=== PATIENT | male | born 1945 | race Caucasian/White ===

== ENCOUNTER 2019-12-18 15:28 | Inpatient (IN) | payer MEDICARE, SELFPAY ==
[2019-12-18] VITALS (7 sets, daily range): BP systolic 149–206; BP diastolic 68–86; PULSE 49–56; RESP 8–18; TEMP 35.5–37.1; O2SAT 96–99; BMI 32.8
--- NOTE | ~2019-12-18 | US_ITS ---
US right upper quadrant INDICATION: Pancreatitis. Abdomen pain. PROCEDURE: Realtime right upper abdominal ultrasound. COMPARISON: No prior studies for comparison. FINDINGS: Pancreas is poorly visualized due to bowel gas. Liver echotexture is increased, consistent with fatty infiltration. There is normal directional flow in the portal vein. There are multiple gallstones. Gallbladder wall is mildly thickened measuring 3-4 mm. Common bile du ct measures 3 mm. No sonographic Barron's sign. IMPRESSION: 1: Cholelithiasis with mild gallbladder wall thickening. 2: Hepatic steatosis. Reviewed, dictated and finalized at location A.
--- NOTE | ~2019-12-18 | XR_ITS ---
EXAMINATION: XR cholangiogram surg 1st inj DATE: 12/22/2019 14:20 INDICATION: Cholelithiasis. TECHNIQUE: 136 fluoroscopic images of the right upper quadrant were obtained during intraoperative ch olangiography performed by the surgeon. I was not present in the operating room. Fluoroscopy exposure time was 20 seconds. COMPARISON: Ultrasound 12/20/2019 FINDINGS: There is a catheter in the cystic duct. The common duct is normal in caliber. No choledocho lithiasis. Contrast passes to the duodenum. IMPRESSION: 1. Normal intraoperative cholangiogram. Reviewed, dictated and finalized at location A.
--- NOTE | ~2019-12-18 | CT_ITS ---
EXAMINATION: CTA chest abdomen pelvis DATE: 12/18/2019 16:13 INDICATION: Abdominal aortic aneurysm presenting with abdominal pain. TECHNIQUE: Computed tomographic angiography (CTA) of the chest, abdomen, and pelvis was performed wit hout and with 100 mL Omnipaque-350 intravenous contrast. Volume-rendered 3D-reconstructions of the ao rta and large arteries were constructed by the technologist on a separate workstation. Automated expo sure control and iterative reconstruction technique were employed. The dose-length product was 1524 m Gy-cm. COMPARISON: CT chest and abdomen dated 10/14/2013 FINDINGS: Chest: Dependent predominant atelectasis in the bilateral lower lobes. There are multiple scattered bilatera l calcified pulmonary nodules consistent with old granulomatous disease. A few additional scattered i ndeterminate noncalcified pulmonary nodules the largest measuring up to 3 mm. No pneumonia, pulmonary edema or pleural effusion. Heart size is normal. Atherosclerotic coronary artery Calcination. No per icardial effusion. 4.9 x 5.0 cm fusiform ascending thoracic aortic aneurysm which tapers to 3.3 cm at the distal arch. Normal caliber descending thoracic aorta. No aortic dissection. There are bridging osteophytes throughout the thoracic spine, consistent with diffuse idiopathic skeletal hyperostosis ( DISH). There is also fusion across the T8-T9 disc space. Abdomen/pelvis: Liver, spleen, bilateral adrenal glands are normal. There are several calcified gallstones in the nor mal gallbladder. No intra or extra hepatic biliary ductal dilation. There is peripancreatic stranding and upper abdominal retroperitoneal fluid consistent with acute interstitial pancreatitis. There are several small dystrophic calcific a cyst at the tail of the pancreas consistent with sequela of carpenter mate antonio pancreatitis. No organized fluid collections to suggest abscess or walled off necrosis. Retained lobulation of the bilateral kidneys. Bilateral nonobstructing nephrolithiasis with 8 mm stone a t a lower pole calyx of the right kidney and several additional 2 mm smaller stones. Mild prostatomeg nila. Bladder is normal. There are few diverticula along the sigmoid colon without adjacent inflammato ry change to suggest diverticulitis. Small bowel and appendix are normal. Small bilateral fat-contain ing inguinal hernias. No free intraperitoneal gas or fluid. No pathologically enlarged abdominal or p elvic lymphadenopathy. There is nonhemodynamically significant calcified atherosclerosis of the duarte l caliber abdominal aorta and many of the other arteries. L2-L4 laminectomies and partial L4 laminect gabriel. Severe lumbar spondylosis with fusion across the L2-L3 and L3-L4 disc spaces. Developing ankylo sis across the bilateral sacroiliac joints. Moderate bilateral hip osteoarthritis. IMPRESSION: 1. Cholelithiasis and radiographically uncomplicated acute interstitial pancreatitis. No evident obst ructing gallstone or intra-/extra hepatic biliary ductal dilation. 2. Unchanged 4.9 x 5.0 cm diffuse from ascending thoracic aortic aneurysm. No aortic dissection or an eurysm of the descending thoracic or abdominal aorta. 3. Bilateral nonobstructing nephrolithiasis. Reviewed, dictated and finalized at location A. IMPRESSION: 1. Cholelithiasis and radiographically uncomplicated acute interstitial pancrea titis. No evident obstructing gallstone or intra-/extra hepatic biliary ductal dilation. 2. Unchanged 4.9 x 5.0 cm diffuse from ascending thoracic aortic aneurysm. No a ortic dissection or aneurysm of the descending thoracic or abdominal aorta. 3. Bilateral nonobstructing nephrolithiasis.
--- NOTE | 2019-12-18 15:24 | ED.ABDPAIN ---
HPI - Abdominal Pain General Chief Complaint: Abdominal Pain Stated Complaint: n/v/abdominal pain Source: patient and EMS Mode of arrival: EMS Limitations: no limitations History of Present Illness HPI narrative: Patient is a 74-year-old gentleman with a history of AAA, hypertension, who presents for evaluation of abdominal pain. Patient with acute onset, nausea, epigastric abdominal pain with radiation to the back. Patient had several episodes of nonbloody, nonbilious emesis. He denies fever or chills, reports feeling slightly diaphoretic with vomiting. No numbness in his lower extremities, no ripping or tearing sensation to the flanks. Patient states he had a bowl of cereal this morning, no recent food indiscretions. No diarrhea. No recent sick contacts. Related Data Home Medications Medication Instructions Recorded Confirmed ascorbic acid (vitamin C) [Vitamin 500 mg PO DAILY 12/18/19 12/18/19 C] aspirin [Aspirin Low Dose] 12/18/19 cholecalciferol (vitamin D3) 25 mcg PO DAILY 12/18/19 12/18/19 [Vitamin D3] cyanocobalamin (vitamin B-12) 1,000 mcg PO DAILY 12/18/19 12/18/19 [Vitamin B-12] omega 2-rtd-rqq-fish oil [Fish Oil] 1 cap PO DAILY 12/18/19 12/18/19 vitamin E 400 unit PO DAILY 12/18/19 12/18/19 Allergies Allergy/AdvReac Type Severity Reaction Status Date / Time No Known Allergies Allergy Verified 10/02/18 17:24 Review of Systems Review of Systems: Narrative: CONSTITUTIONAL: Denies fever, chills, reports feeling slightly diaphoretic EYES: Denies visual changes, redness, or discharge. ENT: Denies rhinorrhea, congestion, sore throat, or otalgia. CARDIOVASCULAR: Denies chest pain, palpitations, or edema. RESPIRATORY: Denies cough or dyspnea. GASTROINTESTINAL: Reports abdominal pain, nausea and vomiting GENITOURINARY: Denies dysuria or hematuria. SKIN: Denies rash or itching. MUSCULOSKELETAL: Reports back pain NEUROLOGIC: Denies headache, numbness, or weakness. [facility] Past Medical History Medical History (Updated 12/18/19 @ 17:26 by Isabella Gar MD) Acid reflux Arthritis Hyperlipidemia Hypertension Nephrolithiasis Surgical History Surgical History (Updated 12/18/19 @ 15:38 by Isabella Gar MD) H/O angioplasty History of cataract surgery Hx of cardiac catheterization Hx of tonsillectomy Family History Family History (Updated 03/16/14 @ 07:13 by DOCTOR UNKNOWN) Mother Family history of malignant neoplasm Father Family history of emphysema Social History Social History Smoking status: Never smoker Alcohol intake: current Exam Narrative: Exam Narrative: GENERAL: Awake, alert, conversant HEAD: Normocephalic, atraumatic. EYES: PERRLA and EOMI. ENT: Nares clear, no rhinorrhea or epistaxis. Mucous membranes moist. NECK: Supple. CHEST: No respiratory distress, breathing even and non labored HEART: Bradycardic rate, sinus rhythm ABDOMEN:Non distended, tender in the epigastrium, no pulsatile mass in the abdomen, nonrigid, no distention, no guarding EXTREMITIES: Normal range of motion. No edema. SKIN: Warm, dry, no rash. NEURO:No focal deficits. Alert and oriented x3 Course Vital Signs Vital signs: Vital Signs Temperature 35.5 C L 12/18/19 15:29 Pulse Rate 49 L 12/18/19 15:29 Respiratory Rate 14 12/18/19 15:29 Blood Pressure 206/86 H 12/18/19 15:29 Pulse Oximetry 99 12/18/19 15:29 Temperature 36.4 C L 12/18/19 17:28 Pulse Rate 54 L 12/18/19 17:28 Respiratory Rate 15 12/18/19 17:28 Blood Pressure 162/79 H 12/18/19 17:28 Pulse Oximetry 97 12/18/19 17:28 MDM - Abdominal Pain MDM Narrative Medical decision making narrative: Patient presented to the emergency department for evaluation of abdominal pain. At the time of initial assessment, ABCs are intact, vital signs are notable for bradycardic patient who is hypertensive, no pulsatile mass in the abdomen that I can palpate. Patient does have a history of a AAA. IV access
--- NOTE | 2019-12-18 15:31 | ECG_ITS ---
Measurements Intervals [place] Rate: 49 P: 68 HI: 285 QRS: -16 QRSD: 113 T: 86 QT: 483 QTc: 440 Interpretive Statements SINUS BRADYCARDIA WITH FIRST DEGREE AV BLOCK INTRAVENTRICULAR CONDUCTION DELAY NONSPECIFIC ST & T-WAVE ABNORMALITY- LATERAL LEADS BASELINE WANDER- V1 BORDERLINE ECG Electronically Signed On 12-20-2019 14:15:09 CDT by Charles Nichols D.O.
[2019-12-18 15:42] LABS: Glucose Point of Care 158 (65-105)
[2019-12-18 15:51] LABS: Basophils Absolute Auto 0.1 K/mm3 (0.0-0.1); Basophils Percent Auto 0.4 % (0.2-1.2); Eosinophils Absolute Auto 0.3 K/mm3 (0-0.3); Eosinophils Percent Auto 1.4 % (0-4.4); Hematocrit 45.8 % (42.0-52.0); Hemoglobin 15.7 g/dL (14.0-18.0); Immature Granulocyte Absolute 0.17 K/mm3 (0.00-0.031); Immature Granulocyte Percent A 0.8 % (0-0.5); Lymphocytes Percent Auto 6.5 % (18.3-44.2); Mean Corpuscular HGB Conc 34.3 g/dl (32-36); Mean Corpuscular Hemoglobin 31.3 pg (26-34); Mean Corpuscular Volume 91.2 fl (80-100); Mean Platelet Volume 11.1 fl (7.4-10.4); Monocytes Absolute Auto 1.2 K/mm3 (0.1-0.6); Monocytes Percent Auto 5.6 % (2.6-8.5); Neutrophils Absolute Auto 18.5 K/mm3 (1.3-6.7); Neutrophils Percent Auto 85.3 % (45.5-73.1); Platelet Count Result 262 k/mm3 (150-375); Red Blood Count 5.02 M/mm3 (4.6-6.20); Red Cell Distribution Width 14.1 % (11.5-14.5); White Blood Count 21.7 K/mm3 (4.5-10.0)
[2019-12-18 16:01] LABS: INR 1.1; Prothrombin Time 14.3 Seconds (11.1-14.7)
[2019-12-18 16:02] LABS: Partial Thromboplastin Time 29.6 SECONDS (22.3-36.8)
[2019-12-18 16:03] LABS: Estimated CRCL calculation 51 ml/min; Estimated Glomerular Filt Rate 46
[2019-12-18 16:03] LABS: Lactic Acid Reflex 2.2 mmol/L (0.7-2.1)
[2019-12-18 16:05] LABS: Alanine Aminotransferase 13 U/L (4-50); Albumin Level 4.7 g/dL (3.5-5.1); Alkaline Phosphatase 108 U/L (38-126); Aspartate Amino Transferase 25 U/L (17-59); Bilirubin,Total 0.9 mg/dL (0.2-1.3); Blood Urea Nitrogen 21 mg/dL (9-20); Calcium 9.6 mg/dL (8.4-10.2); Carbon Dioxide 26 mmol/L (22-30); Chloride 107 mmol/L (98-107); Estimated CRCL calculation 51 ml/min; Estimated Glomerular Filt Rate 46; Glucose 156 mg/dL (75-110); Potassium 3.6 mmol/L (3.4-5.0); Sodium 144 mmol/L (137-145)
[2019-12-18 16:15] LABS: Troponin I < 0.012 ng/mL (0.000-0.034)
[2019-12-18] MEDS: MORPHINE SULFATE 4 MG/ML INJ IV PUSH (16:15)
[2019-12-18] MEDS: SODIUM CHLORIDE 0.9% IV 1,000 ML 999 ML IV CONT ×2 (16:15→17:11)
[2019-12-18 16:51] LABS: Lipase > 40000 U/L (23-300)
[2019-12-18] MEDS: HYDROMORPHONE HCL 1 MG/ML INJ 0.5 MG IV PUSH ×3 (17:11→22:32)
--- NOTE | 2019-12-18 17:18 | PC.NURSE ---
RN noted aystole on surveillance monitor. 8 second pause noted with return pulse rate of 27. Pt awake and grimacing in pain. States his stomach is cramping. Advised patient not to bear down during abdominal pain episodes. Patient relaxed and HR returned to baseline of 52. MD notified.
[2019-12-18 18:01] LABS: Add Urine Microscopic? YES; Appearance Urine Clear (Clear); Bilirubin Urine Negative (Negative); Blood Urine Negative (Negative); Color Urine Yellow (Yellow); Glucose Urine UA Negative (Negative); Ketones Urine Negative (Negative); Leukocyte Esterase Ur Negative LEU/UL (Negative); Mucus Urine Rare /lpf; Nitrate Urine Negative (Negative); Protein Urine 1+ mg/dL (Negative); RBC Urine 0-2 /hpf (0-2); Specific Grav Ur 1.041 (1.001-1.035); Squamous Epithelial Cell Urine Few /hpf (Few); Urobilinogen Urine Negative mg/dL (<2.0); WBC Urine 0-3 /hpf
[2019-12-18 18:07] LABS: Lactate Dehydrogenase 381 U/L (313-618)
[2019-12-18] MEDS: MAGNESIUM SULF 2 GM/WATER 50ML 2 GM/50 ML BAG IVPB (18:27)
[2019-12-18 18:38] LABS: Magnesium 1.9 mg/dL (1.6-2.3); Triglycerides 291 mg/dL (<150)
[2019-12-18 18:49] LABS: Reflex Lactic Acid Yes or No Add Lactic
[2019-12-18 18:50] LABS: Troponin I < 0.012 ng/mL (0.000-0.034)
--- NOTE | 2019-12-18 19:00 | PM.IMHP ---
H&P: HPI History of Present Illness Chief complaint: Abdominal pain. Narrative: David Nicholson is a very pleasant 78-year-old male with untreated obstructive sleep apnea, hypertension, dyslipidemia including hypertriglyceridemia, GERD, thoracic ascending aortic aneurysm, paroxysmal atrial fibrillation, and coronary artery disease with history of stent who presented to the emergency department earlier today via EMS from home for evaluation of abdominal pain. He was in his usual state of health this morning, and in fact spent a lot of time cleaning fish that he had caught the previous day. Not long prior to arrival, he developed sudden onset of epigastric pain, which he describes as severe and squeezing in nature. The pain did radiate into the back and was associated with diaphoresis, nausea, and vomiting. He was immediately sent for a CTA of the chest, abdomen, and pelvis which revealed and unchanged 4.9 x 5.0 centimeter ascending thoracic aortic aneurysm without evidence of dissection, as well as cholelithiasis and radiographically uncomplicated acute interstitial pancreatitis. He has no previous history of pancreatitis and he uses alcohol rarely, but did have a can of beer yesterday evening. He has a history of hypertriglyceridemia, for which he does take medication. He has never had problems with his gallbladder to his knowledge. Several times while in emergency department, the patient had sinus pause/asystole upwards of 8 seconds and he has since been admitted to the ICU with temporary pacer in place if needed. He is aware when he has these pauses and he feels quite bad when they occur, however he has not lost consciousness. The patient notes that his resting heart rate is typically in the 50s, and there was previous discussion of possible need for a pacemaker in the future. Review of Systems Review of Systems: Narrative: Twelve systems were reviewed with pertinent positives and negatives as per HPI. No fever, chills, or sweats. He denies recent cold and flu symptoms. No travel or sick contacts. He has been diagnosed with sleep apnea and did try to use a CPAP, however was intolerant to such. He has been told that he snores and he is sleepy a lot during the day. He will have occasional lower extremity edema, but nothing significant. He denies paroxysmal nocturnal dyspnea and orthopnea. No pleuritic pain. He has not had chest pain or palpitations, and does not believe he has been in atrial fibrillation for quite some time. He denies cough and shortness of breath. He had a bowel movement earlier today which was unremarkable. He does suffer from hemorrhoids and will occasionally notice bright red blood on the toilet tissue. Except as documented, all other systems were reviewed and are negative. [facility] Past Medical History Medical History (Updated 12/18/19 @ 20:05 by Lyubov Cosby PA-C) Arthritis Borderline diabetes Coronary artery disease With history of stents. Dyslipidemia Hypertension Nephrolithiasis Obstructive sleep apnea Intolerant to CPAP. Paroxysmal atrial fibrillation Thoracic aortic aneurysm Stable on imaging dated 12/18/2019. Patient is not interested in surgery. Surgical History Surgical History (Updated 12/18/19 @ 19:53 by Lyubov Cosby PA-C) History of cataract extraction History of heart artery stent (~07/2006) History of lumbar fusion History of tonsillectomy History of total bilateral knee replacement Family History Family History (Updated 12/18/19 @ 19:54 by Lyubov Cosby PA-C) Mother Breast cancer Father Family history of emphysema Daughter Breast cancer Son Valvular heart disease Social History Social History (Updated 12/18/19 @ 19:55 by Lyubov Cosby PA-C) Social History: The patient is and lives in his own home in [place], [place]. 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 He is a lifelong nonsmoker. He drinks perhaps 1 alcoholic beverage a week, at the m
--- NOTE | 2019-12-18 19:19 | ADMGEN ---
This patient, David Nicholson, was admitted to Intensive Care Unit-9. Patient/family oriented to hospital policies and general routines including ID bracelet, bed and alarms, visiting hours, pain management, procedures, bathroom and other care routines, personal items, smoking policy, room service/diet, and visiting hours. Valuables list has been completed. Information on how to activate the Rapid Response Team has been discussed. Patient/Family are encouraged to report perceived risks to care and to ask questions if they do not understand what they are told or what they should do.
[2019-12-18] MEDS: SODIUM CHLORIDE 0.9% IV 1,000 ML 150 ML IV CONT (20:28)
--- NOTE | 2019-12-18 20:47 | PC.NURSE ---
PATIENT ARRIVED AT SHIFT CHANGE AND WAS MADE COMFORTABLE IN BED. PATIENT PLACED ON HEART MONITOR AND BECAME SYMPTOMATIC, HEART RATE DROPPED INTO THE LOW 20S-30S. PATIENT STATED THAT HE BECAME VERY DIZZY WHEN THIS OCCURRED. HOSPITALIST CALLED TO BEDSIDE AND CARDIOLOGY MADE AWARE OF CURRENT PATIENT STATUS. PATIENT PLACED ON PACER PADS, WITH SUPPORT OF HEART RATE OF 50 THROUGHOUT NIGHT, WITH POSSIBLE PACEMAKER PLACEMENT IN AM. PATIENT MADE AWARE AND EDUCATED ON WHAT COULD POTENTIALLY TAKE PLACE IN AM. WILL CONTINUE TO MONITOR PATIENT CLOSELY FOR CHANGES IN STATUS AND WILL FOLLOW CURRENT PLAN OF CARE AND VITAL SIGNS.
[2019-12-18 21:58] LABS: Lactic Acid 1.4 mmol/L (0.7-2.1)
[2019-12-18 22:10] LABS: Troponin I < 0.012 ng/mL (0.000-0.034)
[2019-12-18 22:16] LABS: Hemoglobin A1C 5.7 % (<5.7)
[2019-12-18 23:46] LABS: Lactic Acid 1.6 mmol/L (0.7-2.1)
[2019-12-19] VITALS (13 sets, daily range): BP systolic 133–170; BP diastolic 65–89; PULSE 54–69; RESP 12–22; TEMP 36.6–37.8; O2SAT 93–98
[2019-12-19] MEDS: SODIUM CHLORIDE 0.9% IV 1,000 ML 150 ML IV CONT ×4 (02:20→20:02)
[2019-12-19] MEDS: HYDROMORPHONE HCL 1 MG/ML INJ 0.5 MG IV PUSH ×5 (02:20→21:18)
[2019-12-19 04:31] LABS: Basophils Percent Auto 0.2 % (0.2-1.2); Hematocrit 41.4 % (42.0-52.0); Immature Granulocyte Absolute 0.08 K/mm3 (0.00-0.031); Immature Granulocyte Percent A 0.6 % (0-0.5); Lymphocytes Absolute Auto 0.65 K/mm3 (0.9-3.2); Lymphocytes Percent Auto 5.1 % (18.3-44.2); Mean Corpuscular HGB Conc 33.8 g/dl (32-36); Mean Corpuscular Volume 91.6 fl (80-100); Mean Platelet Volume 10.5 fl (7.4-10.4); Monocytes Absolute Auto 0.7 K/mm3 (0.1-0.6); Monocytes Percent Auto 5.1 % (2.6-8.5); Neutrophils Absolute Auto 11.4 K/mm3 (1.3-6.7); Platelet Count Result 205 k/mm3 (150-375); Red Blood Count 4.52 M/mm3 (4.6-6.20); Red Cell Distribution Width 14.1 % (11.5-14.5); White Blood Count 12.8 K/mm3 (4.5-10.0)
[2019-12-19 04:59] LABS: Alanine Aminotransferase 11 U/L (4-50); Albumin Level 3.8 g/dL (3.5-5.1); Alkaline Phosphatase 71 U/L (38-126); Aspartate Amino Transferase 24 U/L (17-59); Bilirubin,Total 0.8 mg/dL (0.2-1.3); Blood Urea Nitrogen 24 mg/dL (9-20); Calcium 8.4 mg/dL (8.4-10.2); Carbon Dioxide 27 mmol/L (22-30); Chloride 110 mmol/L (98-107); Estimated CRCL calculation 63 ml/min; Estimated Glomerular Filt Rate 59; Glucose 135 mg/dL (75-110); Magnesium 2.2 mg/dL (1.6-2.3); Potassium 4.4 mmol/L (3.4-5.0); Sodium 143 mmol/L (137-145)
[2019-12-19 05:40] LABS: Lipase 4883 U/L (23-300)
[2019-12-19] MEDS: ONDANSETRON INJ 4 MG/2 ML VIAL IV PUSH ×3 (07:52→21:18)
[2019-12-19] MEDS: FAMOTIDINE 20 MG/2 ML VIAL IV PUSH ×2 (09:21→20:03)
--- NOTE | 2019-12-19 09:50 | WPDGICN ---
Assessment and Plan Assessment and plan (1) Acute pancreatitis: Qualifiers: Acute pancreatitis complication: no infection or necrosis Pancreatitis type: unspecified pancreatitis type Qualified Code(s): K85.90 - Acute pancreatitis without necrosis or infection, unspecified Code(s): K85.90 - Acute pancreatitis without necrosis or infection, unspecified Status: Acute Assessment and Plan: Patient's symptoms laboratory all consistent with acute pancreatitis. CT scan of the abdomen confirms gallstones. Making this a likely etiology for his pancreatitis. Currently his there is no ductal dilatation on x-ray exam and liver function tests remain normal. Plan is to treat symptomatic Manzo. With IV fluids and supportive care. Ultimately cholecystectomy baby required. Patient does admit to occasional beer intake but not enough at this point to attribute pancreatitis. Patient continuing to have ongoing pain at this time. Elevated lipids make this also a consideration for potential etiology for his pancreatitis. We will follow with you. Continue supportive care for now. (2) Dyslipidemia: Code(s): E78.5 - Hyperlipidemia, unspecified Status: Acute (3) Hypertension: Code(s): I10 - Essential (primary) hypertension Status: Acute (4) Thoracic aortic aneurysm: Code(s): I71.2 - Thoracic aortic aneurysm, without rupture Status: Acute (5) Bradycardia: Code(s): R00.1 - Bradycardia, unspecified Status: Acute Assessment and Plan: Patient has had significant sinus pause. Plan is to continue close observation. His possible pacemaker may be required. Patient's bradycardia episodes appear to occur in conjunction with pain raising the question of vagal input. (6) History of colon polyps: Code(s): Z86.010 - Personal history of colonic polyps Status: Acute Assessment and Plan: Patient has a distant history of colon polyps as well as a family history of colon cancer. Last colonoscopy was 8 years ago. Consideration for elective colonoscopy when stable at a later date after discharges encourage. (7) Family history of malignant neoplasm of colon in relative diagnosed when older than 50 years of age: Code(s): Z80.0 - Family history of malignant neoplasm of digestive organs Status: Acute (8) Cholelithiasis: Code(s): K80.20 - Calculus of gallbladder without cholecystitis without obstruction Status: Acute GI Consult Note Consult date/time: 12/19/19 09:50 HPI: Daivd Nicholson is a 74 year old male seen in evaluation at the request of the customer care agent service. Patient in usual state of health until yesterday. He ate a normal breakfast began to clean fish. Patient had sudden onset of upper abdominal crampy type pain. Associated with emesis. Patient states pain was rather severe in ongoing. For this reason he presented to the emergency room. Elevated lipase 240 1000 is identified. Patient has had no recent change in medications. He admits to infrequent intake Beer. Last Beer was several days prior to this. Patient reports never having had pancreatitis prior to this. Patient continues to have episodes of crampy mid epigastric discomfort. On the floor patient was noted have episodes of a sinus pause and symptomatic bradycardia. For this reason transferred to the intensive care unit for closer monitoring. Family history is significant his brother had colon cancer his mother and brother of also had other cancers. Patient self is had prior history of colon polyps last colonoscopy was 2011. Review of Systems Review of Systems: All systems reviewed & are unremarkable except as noted in HPI and below PMFSH Past Medical History Medical History Arthritis Borderline diabetes Coronary artery disease With history of stents. Dyslipidemia Hypertension Nephrolithiasis Obstructive sleep
--- NOTE | 2019-12-19 11:21 | PM.CNCAR ---
Assessment and Plan Additional Plan 74-year-old white male with: Acute pancreatitis most likely represents gallstone pancreatitis and he seems to be recovering with supportive care. 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 It is less likely that this represents vasovagal phenomenon since we would expect primarily to see sinus arrest in that instance and this appears to show evidence of ongoing sinus activity but with AV block. He is on a beta-molly which potentially playing a role with this but that also is less likely since the sinus node does not seem to be dysfunctional. Strictly speaking his beta-molly needs to be discontinued and we will watch his cardiac rhythm. If he continues to have concerning pauses then implanting a pacemaker would be obviously recommended. The patient understands all this and is willing to proceed with pacemaker implantation if we find it necessary. Rojelio Padilla MD [facility] History of Present Illness History of Present Illness Consult date/time: Date of service: 12/19/19 11:21 Reason For Visit: Abdominal pain. Narrative: This is a 74-year-old patient I am seeing at the request of the hospitalist service because of arrhythmias. I do not remember seeing this patient in the past but he indicates I have seen him many years ago at the time of his coronary intervention. The patient came into the hospital here yesterday with significant abdominal pain and has been found to have evidence of pancreatitis. He has pancreatitis that is presumed to be related to gallstones although he also does have hypertriglyceridemia. Dr. Fang has seen him for GI consultation and has recommended supportive care. The patient's abdominal pain is improving although he states his abdomen still feels quite sore. The hospitalist's believe that at some point the patient will require a cholecystectomy because he does have a number of remaining gallstones but surgery for this does not appear to be an urgent matter. He is not reporting any cardiac symptoms at this time he apparently has a history of coronary artery disease and a percutaneous intervention done 10 years ago or more at [facility]. At that time the patient states that I was involved in his care at [facility] back when I used to work at that hospital. He has not had any coronary problems since that intervention. He did not follow up with Cardiology shortly after the intervention until a few years ago when apparently was found to have paroxysmal atrial fibrillation which apparently was asymptomatic. He was referred to see Dr. Vallejo of our practice at this time and he was not felt to require any specific antiarrhythmic treatment. A outpatient Holter monitor did demonstrate evidence of some sick sinus syndrome with some pauses of up to 2.6 seconds. He was placed on systemic anticoagulation therapy with apixaban. The last time he was seen by Dr. Vallejo in the office was about 2 years ago and he failed follow-up after that indicating he has been frustrated that it is difficult to get an appointment for follow-up in our office. He denies any history of gopi syncope near-syncope or lightheadedness. He does state that for most of his life he has a history of lightheadedness and presyncope when he is in pain. Obviously he was in quite a bit of pain yesterday when he came in with pancreatitis. We are consulted to see him because there were some asystolic pauses apparently 1 of them was in the vicinity of 8 seconds RR interval. There are some rhythm strips on the chart which indicate his baseline rhythm to be sinus with first-degree AV block and these pauses appear to be examples of comp
--- NOTE | 2019-12-19 11:55 | WPDCNINT ---
Assessment and Plan Assessment and plan (1) Acute pancreatitis: Qualifiers: Acute pancreatitis complication: no infection or necrosis Pancreatitis type: unspecified pancreatitis type Qualified Code(s): K85.90 - Acute pancreatitis without necrosis or infection, unspecified Code(s): K85.90 - Acute pancreatitis without necrosis or infection, unspecified Status: Acute Assessment and Plan: Patient presented with abdominal pain, found to have lipase level > 40,000. Patient diagnosed with acute pancreatitis likely related to gallstones, hypertriglyceridemia -patient is on IV fluids -repeated lipase level decreased significantly -appreciate GI evaluation recommendation -supportive care, antiemetics, IV fluids (2) AV block: Code(s): I44.30 - Unspecified atrioventricular block Status: Acute Assessment and Plan: Patient noted to have AV block following admission. -cardiology evaluated the patient, will hold beta-blockers for now and continue to monitor heart rhythm. If patient continues to have consulting pauses, will have pacemaker implanted per cardiology recommendations -continue to monitor on telemetry (3) Cholelithiasis: Code(s): K80.20 - Calculus of gallbladder without cholecystitis without obstruction Status: Acute Assessment and Plan: Patient with gallstones on CT scan of the abdomen, most likely etiology of pancreatitis along with hypertriglyceridemia. Continue IV fluids supportive care. -patient will require cholecystectomy at some point (4) Thoracic aortic aneurysm: Code(s): I71.2 - Thoracic aortic aneurysm, without rupture Status: Acute Assessment and Plan: Unchanged size, will continue to monitor (5) Paroxysmal atrial fibrillation: Code(s): I48.0 - Paroxysmal atrial fibrillation Status: Acute Assessment and Plan: Patient currently sinus bradycardia -will hold beta-molly (6) Dyslipidemia: Code(s): E78.5 - Hyperlipidemia, unspecified Status: Acute Assessment and Plan: Will restart atorvastatin and gemfibrozil once patient starts taking p.o. (7) Hypertension: Code(s): I10 - Essential (primary) hypertension Status: Acute Assessment and Plan: P.r.n. hydralazine Additional Plan Stress ulcer prophylaxis: Famotidine DVT prophylaxis: SCDs Discussed with patient and updated with his condition and plan of care. Code status: Full code Critical care time spent: 39 minutes Due to a high probability of clinically significant, life threatening deterioration, the patient required my highest level of preparedness to intervene emergently and I personally spent this critical care time directly and personally managing the patient. This critical care time included obtaining a history; examining the patient; pulse oximetry; ordering and review of studies; arranging urgent treatment with development of a management plan; evaluation of patient's response to treatment; frequent reassessment; and discussions with other providers. It was exclusive of separately billable procedures and treating other patients and teaching time. 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 He stated that he was his usual state of health on the morning of admission and was cleaning fish that he had card the previous day. He noticed and developed sudden onset of epigastric pain which she descr
[2019-12-19] MEDS: PROCHLORPERAZINE EDISYLATE 10 MG/2 ML VIAL IV PUSH (12:06)
[2019-12-19] MEDS: hydrALAZINE HCL 20 MG/ML VIAL 10 MG IV PUSH ×2 (12:13→17:13)
[2019-12-19 13:04] LABS: Glucose Point of Care 115 (65-105)
--- NOTE | 2019-12-19 15:39 | PM.IMPN ---
Progress Note: A&P Assessment and Plan (1) Acute pancreatitis: Qualifiers: Acute pancreatitis complication: no infection or necrosis Pancreatitis type: unspecified pancreatitis type Qualified Code(s): K85.90 - Acute pancreatitis without necrosis or infection, unspecified Code(s): K85.90 - Acute pancreatitis without necrosis or infection, unspecified Status: Acute Assessment and Plan: Lipase greater than 40,[address] scan and exam consistent with pancreatitis. Triglyceride 291. Patient does not drink alcohol excessively. Gallstones noted on imaging studies which is the most likely etiology. Repeat lipase down to 4900. Continue aggressive IV fluid rehydration, bowel rest, and analgesics/antiemetics as needed. Appreciate GI input. (2) Sinus pause: Code(s): I45.5 - Other specified heart block Status: Acute Assessment and Plan: Patient having sinus pause up to 11 seconds. Transcutaneous pacer pads in place. Cardiology following. Beta-molly has been stopped. Continue telemetry. (3) Dehydration: Code(s): E86.0 - Dehydration Status: Acute Assessment and Plan: Patient clinically dehydrated with elevated renal function. Improved with IV fluids. Continue to follow. (4) Hypertension: Code(s): I10 - Essential (primary) hypertension Status: Acute Assessment and Plan: Blood pressure reviewed on 12/19/19. BP still elevated. Currently NPO of and thus antihypertensives are on hold. Patient has hydralazine available as needed. Continue to monitor. (5) Dyslipidemia: Code(s): E78.5 - Hyperlipidemia, unspecified Status: Acute Assessment and Plan: Stable. Statin and gemfibrozil on hold as he is NPO. (6) Borderline diabetes: Code(s): R73.03 - Prediabetes Status: Acute Assessment and Plan: A1c 5.7. Glucose reviewed on 12/19/2019. Glucose well controlled. Continue sliding scale protocol. (7) Paroxysmal atrial fibrillation: Code(s): I48.0 - Paroxysmal atrial fibrillation Status: Acute Assessment and Plan: No evidence of recurrent atrial fibrillation. Continue telemetry. Beta-molly on hold. He is not on anticoagulation by chart review. Appreciate Cardiology input. (8) Leukocytosis: Code(s): D72.829 - Elevated white blood cell count, unspecified Status: Acute Assessment and Plan: WBC 22K on admission. [place] to be related to inflammation from acute pancreatitis. WBC better today. Not on abx. Continue to monitor. (9) Obstructive sleep apnea: Code(s): G47.33 - Obstructive sleep apnea (adult) (pediatric) Status: Acute Assessment and Plan: Not able to tolerate CPAP. (10) Thoracic aortic aneurysm: Code(s): I71.2 - Thoracic aortic aneurysm, without rupture Status: Acute Assessment and Plan: Stable on imaging today. He is not interested in pursuing surgery. Subjective Date/time seen: 12/19/19 15:39 Interval history: 74yo male with untreated MEGAN, pAFib and CAD here for pancreatitis. Abd pain better today. Cough productive of whitish sputum. No CP. No n/v. No SOB. Exam Narrative: Exam Narrative: AF 151/66 63 Gen - NARD lying semi-recumbent in bed Chest - few basilar rhonchi o/w clear, nml RR CV - RRR S1/S2; Tele showing 11sec pause at 1756 and 9.9sec pause at 2130 but nothing since. Abd - soft. mild epigastric pain. No guarding or rebound. Ext - No pedal edema Psych - Nml mood and affect Skin - Warm and dry Objective Data Vital Signs Vital Signs: Vital Signs - 24 hr 12/18/19 16:24 12/18/19 17:04 12/18/19 17:28 Temperature 97.5 F L Pulse Rate 54 L 56 L 54 L Respiratory Rate 8 L 15 15 Blood Pressure 186/70 H 153/81 H 162/79 H Pulse Oximetry 98 98 97 12/18/19 18:09 12/18/19 20:00 12/18/19 22:00 Temperature 98.7 F Pulse Rate 54 L 52 L 56
[2019-12-19 17:09] LABS: Glucose Point of Care 104 (65-105)
[2019-12-20] VITALS (11 sets, daily range): BP systolic 132–154; BP diastolic 66–88; PULSE 68–79; RESP 11–21; TEMP 36.6–38.1; O2SAT 90–98
[2019-12-20] MEDS: HYDROMORPHONE HCL 1 MG/ML INJ 0.5 MG IV PUSH ×2 (01:15→05:18)
[2019-12-20] MEDS: ONDANSETRON INJ 4 MG/2 ML VIAL IV PUSH ×3 (01:15→22:00)
[2019-12-20] MEDS: SODIUM CHLORIDE 0.9% IV 1,000 ML 150 ML IV CONT (02:26)
[2019-12-20 04:22] LABS: Basophils Percent Auto 0.2 % (0.2-1.2); Eosinophils Absolute Auto 0.1 K/mm3 (0-0.3); Eosinophils Percent Auto 0.4 % (0-4.4); Hematocrit 41.3 % (42.0-52.0); Hemoglobin 13.8 g/dL (14.0-18.0); Immature Granulocyte Absolute 0.18 K/mm3 (0.00-0.031); Immature Granulocyte Percent A 1.1 % (0-0.5); Lymphocytes Absolute Auto 0.95 K/mm3 (0.9-3.2); Lymphocytes Percent Auto 5.8 % (18.3-44.2); Mean Corpuscular HGB Conc 33.4 g/dl (32-36); Mean Corpuscular Hemoglobin 31.4 pg (26-34); Mean Corpuscular Volume 93.9 fl (80-100); Mean Platelet Volume 10.8 fl (7.4-10.4); Monocytes Percent Auto 5.9 % (2.6-8.5); Neutrophils Absolute Auto 14.3 K/mm3 (1.3-6.7); Neutrophils Percent Auto 86.6 % (45.5-73.1); Platelet Count Result 170 k/mm3 (150-375); Red Cell Distribution Width 14.2 % (11.5-14.5); White Blood Count 16.5 K/mm3 (4.5-10.0)
[2019-12-20 04:35] LABS: Alanine Aminotransferase 10 U/L (4-50); Albumin Level 3.5 g/dL (3.5-5.1); Alkaline Phosphatase 58 U/L (38-126); Aspartate Amino Transferase 27 U/L (17-59); Bilirubin,Total 0.8 mg/dL (0.2-1.3); Blood Urea Nitrogen 19 mg/dL (9-20); Calcium 8.2 mg/dL (8.4-10.2); Carbon Dioxide 23 mmol/L (22-30); Chloride 112 mmol/L (98-107); Estimated CRCL calculation 74 ml/min; Estimated Glomerular Filt Rate > 60; Glucose 98 mg/dL (75-110); Lipase 923 U/L (23-300); Phosphorus 2.8 mg/dL (2.5-4.5); Potassium 3.9 mmol/L (3.4-5.0); Sodium 142 mmol/L (137-145)
--- NOTE | 2019-12-20 07:40 | WPDINTPN ---
Progress Note: A&P Assessment and Plan (1) Acute pancreatitis: Qualifiers: Acute pancreatitis complication: no infection or necrosis Pancreatitis type: unspecified pancreatitis type Qualified Code(s): K85.90 - Acute pancreatitis without necrosis or infection, unspecified Code(s): K85.90 - Acute pancreatitis without necrosis or infection, unspecified Status: Acute Assessment and Plan: Patient presented with abdominal pain, found to have lipase level > 40,000. Patient diagnosed with acute pancreatitis likely related to gallstones, hypertriglyceridemia -repeated lipase level decreased significantly, decrease IV fluids -appreciate GI evaluation recommendation -supportive care, antiemetics, IV fluid -will start liquids and advance as tolerated (2) AV block: Code(s): I44.30 - Unspecified atrioventricular block Status: Acute Assessment and Plan: Patient noted to have AV block following admission. - If patient continues to have consulting pauses, will have pacemaker implanted per cardiology recommendations -no pauses yesterday or overnight, patient in AFib, rate control in the 70s -continue to monitor on telemetry (3) Cholelithiasis: Code(s): K80.20 - Calculus of gallbladder without cholecystitis without obstruction Status: Acute Assessment and Plan: Patient with gallstones on CT scan of the abdomen, most likely etiology of pancreatitis along with hypertriglyceridemia. Continue IV fluids supportive care. -patient will require cholecystectomy at some point - 12/20/2019 RUQ - 1: Cholelithiasis with mild gallbladder wall thickening.2: Hepatic steatosis. - LFTs are normal (4) Thoracic aortic aneurysm: Code(s): I71.2 - Thoracic aortic aneurysm, without rupture Status: Acute Assessment and Plan: Unchanged size, will continue to monitor (5) Paroxysmal atrial fibrillation: Code(s): I48.0 - Paroxysmal atrial fibrillation Status: Acute Assessment and Plan: Currently in AFib, rate control with heart rates in the 70s -hold acebutalol (6) Dyslipidemia: Code(s): E78.5 - Hyperlipidemia, unspecified Status: Acute Assessment and Plan: Will restart atorvastatin and gemfibrozil (7) Hypertension: Code(s): I10 - Essential (primary) hypertension Status: Acute Assessment and Plan: Start amlodipine which patient takes at home P.r.n. hydralazine Additional Plan Stress ulcer prophylaxis: Famotidine DVT prophylaxis: SCDs Discussed with patient and updated with his condition and plan of care. Discussed with Dr. Allen Code status: Full code Critical care time spent: 32 minutes Due to a high probability of clinically significant, life threatening deterioration, the patient required my highest level of preparedness to intervene emergently and I personally spent this critical care time directly and personally managing the patient. This critical care time included obtaining a history; examining the patient; pulse oximetry; ordering and review of studies; arranging urgent treatment with development of a management plan; evaluation of patient's response to treatment; frequent reassessment; and discussions with other providers. It was exclusive of separately billable procedures and treating other patients and teaching time. Please see Assessment and Plan section and the rest of the note for further information on patient assessment and treatment Subjective Date/time seen: 12/20/19 07:40 Reason for consult: Acute pancreatitis, abdominal pain, sinus pause 12/20/2019: Patient is awake, alert, oriented, pleasant to talk to. Patient denies any shortness of breath, chest pain, nausea, vomiting. States has nausea with the give him the antiemetic, this complain of some abdominal cramping from time to time. Patient has had no pauses through the day yesterday or overnight. Heart rates in the 70s, irregular, in AFib. U
--- NOTE | 2019-12-20 08:27 | PM.IMPN ---
Progress Note: A&P Assessment and Plan (1) Acute pancreatitis: Qualifiers: Acute pancreatitis complication: no infection or necrosis Pancreatitis type: unspecified pancreatitis type Qualified Code(s): K85.90 - Acute pancreatitis without necrosis or infection, unspecified Code(s): K85.90 - Acute pancreatitis without necrosis or infection, unspecified Status: Acute Assessment and Plan: CTA chest/abdomen/pelvis with cholelithiasis and uncomplicated acute interstitial pancreatitis. Lipase greater than 40,000 on admission. Lipase down to 923 today. LFTs normal. Clinically improving. Discussed with clinical fellow. Will start clear liquids. Decrease IV fluids. Also appreciate help from GI. Anticipate transfer out of ICU today. RUQ ultrasound completed with results pending. (2) Sinus pause: Code(s): I45.5 - Other specified heart block Status: Acute Assessment and Plan: Noted to previously have sinus pause up to 11 seconds. Cardiology consulted and appreciate input. No further sinus pauses seen on review of telemetry on 12/20/2019. Beta-molly discontinued. Await further recommendations from Cardiology. (3) Dehydration: Code(s): E86.0 - Dehydration Status: Acute Assessment and Plan: Result of pancreatitis. Improving. Continue IV fluids but decrease rate as noted above. Will follow. (4) Hypertension: Qualifiers: Hypertension type: essential hypertension Qualified Code(s): I10 - Essential (primary) hypertension Code(s): I10 - Essential (primary) hypertension Status: Acute Assessment and Plan: Blood pressure reviewed on 12/20/2019 and presently stable. IV hydralazine remains available as needed. Will continue to monitor. (5) Paroxysmal atrial fibrillation: Code(s): I48.0 - Paroxysmal atrial fibrillation Status: Acute Assessment and Plan: Telemetry reviewed on 12/20/2019 and currently in atrial fibrillation with heart rate in the 70s. Beta-molly on hold. Not on anticoagulation prior to admission. Will continue to monitor. (6) Dyslipidemia: Code(s): E78.5 - Hyperlipidemia, unspecified Status: Acute Assessment and Plan: Stable. Atorvastatin and gemfibrozil held on admission. Anticipate restarting medications when able. (7) Borderline diabetes: Code(s): R73.03 - Prediabetes Status: Acute Assessment and Plan: HgbA1C 5.7. Glucose reviewed on 12/20/2019 and well controlled. Continue sliding scale insulin as needed. Will continue to monitor. (8) Leukocytosis: Qualifiers: Leukocytosis type: unspecified Qualified Code(s): D72.829 - Elevated white blood cell count, unspecified Code(s): D72.829 - Elevated white blood cell count, unspecified Status: Acute Assessment and Plan: WBC 22K on admission. [place] to be related to inflammation from acute pancreatitis. WBC better at 16.5 today. Will follow. (9) Obstructive sleep apnea: Code(s): G47.33 - Obstructive sleep apnea (adult) (pediatric) Status: Acute Assessment and Plan: Not able to tolerate CPAP. Presently on room air. Will monitor. (10) Thoracic aortic aneurysm: Qualifiers: Presence of rupture: without rupture Qualified Code(s): I71.2 - Thoracic aortic aneurysm, without rupture Code(s): I71.2 - Thoracic aortic aneurysm, without rupture Status: Acute Assessment and Plan: Unchanged 4.9 x 5.0 cm ascending thoracic aortic aneurysm on CT on admission. No acute issue. (11) DVT prophylaxis: Code(s): Z29.9 - Encounter for prophylactic measures, unspecified Status: Acute Assessment and Plan: SCDs. Time Spent With Patient Time with patient: 15 - 25 minutes Subjective Date/time seen: 12/20/19 08:27 Interval history: Date of Service: 12/20/2019. Admitted with pancreatitis. Found to have sinus
[2019-12-20] MEDS: TAMSULOSIN HCL 0.4 MG CAPSULE PO (11:34)
[2019-12-20] MEDS: gemfibroziL 600 MG TABLET PO ×2 (11:34→19:43)
[2019-12-20] MEDS: ATORVASTATIN 20 MG TABLET PO (11:34)
[2019-12-20] MEDS: CLOPIDOGREL BISULFATE 75 MG TABLET PO (11:35)
[2019-12-20] MEDS: AMLODIPINE BESYLATE 2.5 MG TABLET PO (11:35)
[2019-12-20] MEDS: FAMOTIDINE 20 MG/2 ML VIAL IV PUSH ×2 (11:36→19:43)
--- NOTE | 2019-12-20 13:05 | ECG_ITS ---
Measurements Intervals [place] Rate: 68 P: DE: 0 QRS: -31 QRSD: 101 T: 124 QT: 387 QTc: 413 Interpretive Statements ATRIAL FIBRILLATION LEFT AXIS DEVIATION BORDERLINE ST-T WAVE ABNORMALITY- LATERAL LEADS BASELINE ARTIFACT- I, II, III, AVR, AVL, AVF ABNORMAL ECG Electronically Signed On 12-20-2019 14:38:42 CDT by Charles Nichols D.O.
--- NOTE | 2019-12-20 13:12 | WPDGIPROGNO ---
Progress Note: A&P Additional Plan Patient much more comfortable today. Epigastric pain has lessened. Tolerating liquid diet. Physical exam reveals patient be alert. Vital signs stable. Heart rate 79 off of beta blockers. Lungs are clear to auscultation and percussion. Heart without murmur. Abdomen is soft mild epigastric tenderness noted. No masses appreciated. Labs reveal WBC 16.5 K, hemoglobin 13.8, LFTs normal, lipase down to 923. Impression 1. Gallstone pancreatitis. LFTs remain normal. Lipase decreasing. Gallstones confirmed on imaging. Biliary tree unremarkable. Plan is for surgical consultation. Cholecystectomy after resolution pancreatitis. 2. Bradycardia. Heart rate is improved on holding beta blockers. Hopefully pacemaker can be avoided. Cardiology following. 3. History of colon polyps. Also family history of colon cancer. Plan is for elective screening colonoscopy after discharge. Subjective Date/time seen: 12/20/19 13:12 Objective Data Vital Signs Vital Signs: Vital Signs - 24 hr 12/19/19 14:00 12/19/19 16:00 12/19/19 18:00 Temperature 37.8 C H Pulse Rate 63 68 63 Respiratory Rate 15 22 H 17 Blood Pressure 151/66 H 157/77 H 164/72 H Pulse Oximetry 95 93 94 12/19/19 20:00 12/19/19 22:00 12/20/19 00:00 Temperature 36.9 C Pulse Rate 66 62 68 Respiratory Rate 17 18 18 Blood Pressure 161/68 H 134/65 141/83 H Pulse Oximetry 95 97 95 12/20/19 02:00 12/20/19 04:00 12/20/19 06:00 Temperature 36.6 C Pulse Rate 79 75 74 Respiratory Rate 18 18 18 Blood Pressure 132/73 142/79 H 146/83 H Pulse Oximetry 98 93 95 12/20/19 08:00 12/20/19 09:32 12/20/19 10:00 Temperature Pulse Rate 70 75 Respiratory Rate 21 H 15 Blood Pressure 141/84 H 147/88 H Pulse Oximetry 94 95 94 Intake/Output Intake/Output: Intake & Output 12/17/19 12/18/19 12/19/19 12/20/19 23:59 23:59 23:59 23:59 Intake Total 2100 4000 1480 Output Total 1375 650 Balance 2100 2625 830 Meds/Results Medications: Active Medications Generic Name Dose Route Start Last Admin Trade Name Freq PRN Reason Stop Dose Admin Amlodipine Besylate 2.5 mg 12/20/19 09:40 12/20/19 11:35 Norvasc PO 2.5 mg DAILY CECE Administration Atorvastatin Calcium 20 mg 12/20/19 09:40 12/20/19 11:34 Lipitor PO 20 mg DAILY CECE Administration Clopidogrel Bisulfate 75 mg 12/20/19 09:40 12/20/19 11:35 Plavix PO 75 mg DAILY CECE Administration Famotidine 20 mg 12/19/19 09:00 12/20/19 11:36 Pepcid Iv IV PUSH 20 mg Q12HR CECE Administration Gemfibrozil 600 mg 12/20/19 09:55 12/20/19 11:34 Lopid PO 600 mg Q12HR CECE Administration Hydralazine HCl 10 mg 12/19/19 11:49 12/19/19 17:13 Apresoline Hcl Inj IV PUSH 10 mg Q4H PRN Administration Blood Pressure - High Hydromorphone HCl 0.5 mg 12/18/19 17:24 12/20/19 05:18 Dilaudid Inj IV PUSH 0.5 mg Q4H PRN Administration Pain Rated 7-10 Sodium Chloride 1,000 mls @ 150 mls/hr 12/18/19 17:25 12/20/19 02:26 Normal Saline Iv IV CONT 150 mls/hr .Q6H40M CECE Administration Ondansetron HCl 4 mg 12/18/19 17:24 12/20/19 05:18 Zofran Inj IV PUSH 4 mg Q4H PRN Administration Nausea Tamsulosin HCl 0.4 mg 12/20/19 09:40 12/20/19 11:34 Flomax PO 0.4 mg DAILY CECE Administration Radiology Results: ITS Impressions Chest/Abdomen/Pelvis CTA 12/18/19 16:21 IMPRESSION: 1. Cholelithiasis and radiographically uncomplicated acute interstitial pancreatitis. No evident obstructing gallstone or intra-/extra hepatic biliary ductal dilation. 2. Unchanged 4.9 x 5.0 cm diffuse from ascending thoracic aortic aneurysm. No aortic dissection or aneurysm of the descending thoracic or abdominal aorta. 3. Bilateral nonobstructing nephrolithiasis. Upper Quadrant Ultrasound 12/20/19 08:56 IMPRESSION: 1: Cholelithiasis with mild gallbladder wall thickening. 2: Hepatic steatosis.
--- NOTE | 2019-12-20 14:01 | PM.PNCARD ---
Progress Note: A&P Assessment and Plan (1) AV block: Code(s): I44.30 - Unspecified atrioventricular block Status: Acute Assessment and Plan: Evidence of AV node dysfunction with first-degree AV block at baseline and some significant pauses noticed following admission with high-grade AV block as the mechanism. It is less likely that this represents vasovagal phenomenon since we would expect primarily to see sinus arrest in that instance and this appears to show evidence of ongoing sinus activity but with AV block. Beta-molly has been discontinued. No further pauses on monitoring at this point. No indication for pacemaker unless he has further pauses. Continue to monitor on telemetry. May remove pacer pads. (2) Paroxysmal atrial fibrillation: Code(s): I48.0 - Paroxysmal atrial fibrillation Status: Acute Assessment and Plan: Previous history of asymptomatic paroxysmal atrial fibrillation. Had been anticoagulated with apixaban in the past. Telemetry monitoring revealing some atrial fibrillation. Rate is controlled. Check 12 lead EKG. Check echo. CHA2DS VASc score= 4. Anticoagulation would be recommended. Will hold off until seen by surgery. (3) Thoracic aortic aneurysm: Qualifiers: Presence of rupture: without rupture Qualified Code(s): I71.2 - Thoracic aortic aneurysm, without rupture Code(s): I71.2 - Thoracic aortic aneurysm, without rupture Status: Acute Assessment and Plan: CTA 12/18/2019:Unchanged 4.9 x 5.0 cm diffuse from ascending thoracic aortic aneurysm. No aortic dissection or aneurysm of the descending thoracic or abdominal aorta. (4) Cholelithiasis: Code(s): K80.20 - Calculus of gallbladder without cholecystitis without obstruction Status: Acute Assessment and Plan: Abdominal ultrasound 12/20/2019:There are multiple gallstones. Gallbladder wall is mildly thickened measuring 3-4 mm. Common bile duct measures 3 mm. No sonographic Barron's sign. Surgery to consult . (5) CAD (coronary artery disease) of artery bypass graft: Code(s): I25.810 - Atherosclerosis of coronary artery bypass graft(s) without angina pectoris Status: Acute Assessment and Plan: History of coronary artery disease previous PCI more than 10 years ago and no overt ischemic problem since then. He has been taking 81 mg of aspirin as well as clopidogrel 75 mg daily. Continue clopidogrel, gemfibrozil and atorvastatin. Additional Plan [facility] Plan discussed with Dr Umana 1530 12/20/2019 Subjective Date/time seen: 12/20/19 14:01 Interval history: Follow-up for: AV node dysfunction with significant pauses with high-grade AV block, paroxysmal atrial fibrillation, history of coronary artery disease with in bed intervention approximately 10 years ago. Date of Service: 12/20/2019 Subjective: Continues to have some lower abdominal pain. No nausea or vomiting. Denied chest pain. No shortness of breath. No lightheadedness sitting up on edge of bed. Anxious to get some of the monitoring equipment removed. Review of Systems Constitutional: Constitutional: Denies chills Eyes: Eyes: Denies blurry vision ENT: Denies dizziness and Denies epistaxis Cardiovascular: Cardiovascular: Denies chest pain, Denies lightheadedness and Denies dyspnea Respiratory: Respiratory: Denies dyspnea Gastrointestinal: Gastrointestinal: Reports abdominal pain, Denies nausea and Denies vomiting Genitourinary: Genitourinary: Denies hematuria Musculoskeletal: Musculoskeletal: Denies arthralgias Integumentary/Breasts: Skin/Breast: Denies rash and Denies unusual bruising Neurologic: Denies Abnormal speech present and Denies dizziness Psychiatric: Psychiatric: Denies anxiety and Denies depression Endocrine
--- NOTE | 2019-12-20 14:17 | ECHO_ITS ---
Patient Info Name: David Nicholson Age: 74 years : 1945 Gender: Male Ht: 72 in Wt: 249 lbs BSA: 2.43 m2 HR: 85 bpm BP: 146 / 80 mmHg Heart Rhythm: Atrial Fibrillation Technical Quality: Fair Exam Date: 12/20/2019 3:07 PM Exam Location: [facility] Pulmonary Patient Status: Inpatient Admit Date: 12/18/2019 Staff Ordering Physician: Doris Frias APRN Electrical Lineworker: Adrian Delgado RDCS Attending Provider: Tim Hammond MD Referring Physician: Rodriguez CRUZ; Exam Type: CA echo dop color flow w con Study Info Indications I48.0 - Paroxysmal atrial fibrillation Complete two-dimensional, color flow and Doppler transthoracic echocardiogram is performed with contrast to opacify the left ventricle and to improve the deliniation of the left ventricle endocardial borders. History/Risk Factors Paroxysmal Afib; CAD, HTN. Summary 1. Left ventricular chamber size and systolic function are normal with no regional wall motion abnormalities with an estimated ejection fraction of 50-55%. Mild concentric left ventricular hypertrophy. Diastolic function indeterminate. 2. Left atrial chamber dimension is mildly enlarged. 3. The prox ascending aorta size is moderately dilated, 5.0 cm. 4. No significant valve disease. 5. Atrial fibrillation. Left Ventricle Left ventricular chamber dimension is normal. Left ventricular systolic function is normal, estimated at 50-55%. There is mildly increased left ventricular wall thickness. Left ventricular septal wall motion is normal. The left ventricular diastolic function is indeterminate. Left ventricular chamber size and systolic function are normal with no regional wall motion abnormalities with an estimated ejection fraction of 50-55%. Mild concentric left ventricular hypertrophy. Diastolic function indeterminate. Right Ventricle Right ventricular chamber dimension is normal. Right ventricular systolic function is normal. Left Atria Left atrial chamber dimension is mildly enlarged. Right Atria Right atrial chamber dimension is normal. Aortic Valve The aortic valve is trileaflet. There is no aortic valve sclerosis. There is no aortic valve stenosis. There is trace aortic valve regurgitation. Pulmonic Valve The pulmonic valve is normal. There is no pulmonic valve stenosis. There is no pulmonic regurgitation. Mitral Valve The mitral valve has normal leaflets. There is no mitral valve stenosis. There is no mitral valve regurgitation. Tricuspid Valve The tricuspid valve leaflets are normal. There is no significant tricuspid valve stenosis. There is trace tricuspid valve regurgitation. No pulmonary hypertension, estimated pulmonary arterial systolic pressure is Empty. Pericardium/Pleural The pericardium appears normal. There is no pericardial effusion. Inferior Vena Cava Normal inferior vena cava with >50% collapse upon inspiration consistent with Empty right atrial pressure, 5 mmHg. Aorta The aortic root size at the sinus of Valsalva is normal. The prox ascending aorta size is moderately dilated, 5.0 cm. Left Ventricular Outflow Tract Name Value Normal LVOT 2D LVOT Diameter 2.28 cm LVOT Doppler
[2019-12-20] MEDS: lisinopriL 10 MG TABLET PO (15:05)
[2019-12-20] MEDS: PERFLUTREN LIPID MICROSPHERES 1.5 ML VIAL DILUTED TO 10 ML TOTAL VOLUME (15:50)
--- NOTE | 2019-12-20 16:29 | PM.CNGS ---
Assessment and Plan Assessment and plan (1) Acute pancreatitis: Qualifiers: Acute pancreatitis complication: no infection or necrosis Pancreatitis type: unspecified pancreatitis type Qualified Code(s): K85.90 - Acute pancreatitis without necrosis or infection, unspecified Code(s): K85.90 - Acute pancreatitis without necrosis or infection, unspecified Status: Acute Assessment and Plan: Imaging reviewed and discussed with the patient in detail. The patient has evidence of acute interstitial pancreatitis. Alcohol use is not likely to be the etiology based on his alcohol intake. Triglycerides were checked and likely not the cause. He does have evidence of cholelithiasis with no evidence of cholecysitis. LFTs are normal and there was no intra or extra-hepatic biliary dilatation noted on imaging. This is most likely biliary pancreatitis with no current evidence of choledocholithiasis. Gastroenterology is following and their recommendations are noted. The patient does have multiple co-morbidities that increases his risks for surgery, which I discussed with the patient, but a cholecystectomy would be recommended at this time to prevent future complications of the cholelithiasis. I discussed the pathophysiology of this disease process with the patient and options with proceeding with a laparoscopic cholecystectomy, possible open, by Dr. Mckinnon. Description of the procedure, risks, benefits, indications, and expected outcomes were discussed with the patient in detail. All questions were answered. The patient is agreeable to proceeding with surgery. I discussed the patient's case and plan of care with Dr. Mckinnon. We will place the patient's Plavix on hold and try to plan for cholecystectomy on this hospitalization after resolution of the pancreatitis. Timing of surgery will be planned depending on how the patient progresses and after Dr. Mckinnon's evaluation. Thank you for allowing me to see the patient in consultation and we will continue to follow along with you. 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 Will put this on hold in preparation for surgery. (4) Coronary artery disease: Code(s): I25.10 - Atherosclerotic heart disease of [place] coronary artery without angina pectoris Status: Acute (5) Paroxysmal atrial fibrillation: Code(s): I48.0 - Paroxysmal atrial fibrillation Status: Acute Assessment and Plan: Currently rate-controlled while on telemetry in the ICU on my exam. Cardiology's recommendations noted on anticoagulation for this patient. (6) Thoracic aortic aneurysm: Qualifiers: Presence of rupture: without rupture Qualified Code(s): I71.2 - Thoracic aortic aneurysm, without rupture Code(s): I71.2 - Thoracic aortic aneurysm, without rupture Status: Acute (7) Hypertension: Qualifiers: Hypertension type: essential hypertension Qualified Code(s): I10 - Essential (primary) hypertension Code(s): I10 - Essential (primary) hypertension Status: Acute (8) Dyslipidemia: Code(s): E78.5 - Hyperlipidemia, unspecified Status: Acute (9) Obstructive sleep apnea: Code(s): G47.33 - Obstructive sleep apnea (adult) (pediatric) Status: Acute (10) Bradycardia: Code(s): R00.1 - Bradycardia, unspecified Status: Acute Assessment and Plan: Cardiology following and recommendations noted. Beta molly stopped and currently telemetry monitoring. Deferring pacemaker unless having further issues with bradycardia or pauses. History of Present Illness Consult details Consult date: 12/20/19 Reason f
--- NOTE | 2019-12-20 21:19 | PC.NURSE ---
This patient, David Nicholson, was transferred to [ [id number]] on 12/20/19 at 2120. Personal belongings sent with patient. Belongings list checked and signed with receiving [ ]. Report given to [ BERTO Kruse]. Appropriate documentation sent with patient.
--- NOTE | 2019-12-20 23:59 | PC.NURSE ---
This patient, David Nicholson, was received from [[facility] ] on 12/20/19 at 2120. Personal belongings list checked and signed. Patient/family oriented to unit policies and routines
[2019-12-21] VITALS (9 sets, daily range): BP systolic 122–149; BP diastolic 61–78; PULSE 69–78; RESP 20; TEMP 36.8–37.4; O2SAT 90–93
[2019-12-21 08:14] LABS: Hematocrit 36.8 % (42.0-52.0); Hemoglobin 12.4 g/dL (14.0-18.0); Mean Corpuscular HGB Conc 33.7 g/dl (32-36); Mean Corpuscular Hemoglobin 30.8 pg (26-34); Mean Corpuscular Volume 91.5 fl (80-100); Mean Platelet Volume 10.7 fl (7.4-10.4); Platelet Count Result 150 k/mm3 (150-375); Red Blood Count 4.02 M/mm3 (4.6-6.20); Red Cell Distribution Width 13.7 % (11.5-14.5); White Blood Count 14.8 K/mm3 (4.5-10.0)
[2019-12-21 08:28] LABS: Alanine Aminotransferase 10 U/L (4-50); Albumin Level 3.4 g/dL (3.5-5.1); Alkaline Phosphatase 61 U/L (38-126); Aspartate Amino Transferase 23 U/L (17-59); Blood Urea Nitrogen 17 mg/dL (9-20); Calcium 8.2 mg/dL (8.4-10.2); Carbon Dioxide 23 mmol/L (22-30); Chloride 108 mmol/L (98-107); Estimated CRCL calculation 74 ml/min; Estimated Glomerular Filt Rate > 60; Glucose 147 mg/dL (75-110); Lipase 198 U/L (23-300); Potassium 3.4 mmol/L (3.4-5.0); Sodium 138 mmol/L (137-145)
[2019-12-21] MEDS: FAMOTIDINE 20 MG/2 ML VIAL IV PUSH ×2 (08:57→20:18)
[2019-12-21] MEDS: AMLODIPINE BESYLATE 2.5 MG TABLET PO (08:57)
[2019-12-21] MEDS: ATORVASTATIN 20 MG TABLET PO (08:57)
[2019-12-21] MEDS: gemfibroziL 600 MG TABLET PO ×2 (08:57→20:18)
[2019-12-21] MEDS: TAMSULOSIN HCL 0.4 MG CAPSULE PO (08:58)
[2019-12-21] MEDS: lisinopriL 10 MG TABLET PO (08:58)
--- NOTE | 2019-12-21 09:10 | WPDGIPROGNO ---
Progress Note: A&P Additional Plan Patient comfortable this morning. Tolerating diet. Hungry for more solid food. Denies any significant abdominal pain today. Physical exam reveals Vital Signs to be stable. Heart rate improved. Lungs are clear. Abdomen bowel sounds are present soft nontender with no organomegaly. Labs reveal WBC 14.8, LFTs normal, lipase 198. Impression 1. Acute gallstone pancreatitis. Clinically improving. Surgery to see patient for anticipated cholecystectomy. Intraoperative cholangiogram advised. 2. Bradycardia. Had a brief sinus pause. Clinically improved now off beta blockers. Cardiology following 3. Atrial fibrillation. He may benefit from anticoagulation. But this should be deferred till after surgical therapy. Subjective Date/time seen: 12/21/19 09:10 Objective Data Vital Signs Vital Signs: Vital Signs - 24 hr 12/20/19 09:32 12/20/19 10:00 12/20/19 12:00 Temperature 37.0 C Pulse Rate 75 69 Respiratory Rate 15 11 L Blood Pressure 147/88 H 154/81 H Pulse Oximetry 95 94 93 12/20/19 16:00 12/20/19 20:00 12/20/19 21:20 Temperature 38.1 C H 37.2 C 37.1 C Pulse Rate 71 78 71 Respiratory Rate 20 17 20 Blood Pressure 134/66 135/76 Pulse Oximetry 97 98 90 12/21/19 00:00 12/21/19 04:00 12/21/19 06:00 Temperature 36.8 C Pulse Rate 71 72 76 Respiratory Rate 20 Blood Pressure 139/65 Pulse Oximetry 91 Intake/Output Intake/Output: Intake & Output 12/18/19 12/19/19 12/20/19 12/21/19 23:59 23:59 23:59 23:59 Intake Total 2100 4000 4080 60 Output Total 1375 1800 Balance 2100 2625 2280 60 Meds/Results Medications: Active Medications Generic Name Dose Route Start Last Admin Trade Name Freq PRN Reason Stop Dose Admin Amlodipine Besylate 2.5 mg 12/20/19 09:40 12/21/19 08:57 Norvasc PO 2.5 mg DAILY CECE Administration Atorvastatin Calcium 20 mg 12/20/19 09:40 12/21/19 08:57 Lipitor PO 20 mg DAILY CECE Administration Clopidogrel Bisulfate 75 mg 12/20/19 09:40 12/20/19 11:35 Plavix PO 75 mg DAILY CECE Administration Famotidine 20 mg 12/19/19 09:00 12/21/19 08:57 Pepcid Iv IV PUSH 20 mg Q12HR CECE Administration Gemfibrozil 600 mg 12/20/19 09:55 12/21/19 08:57 Lopid PO 600 mg Q12HR CECE Administration Hydromorphone HCl 0.5 mg 12/18/19 17:24 12/20/19 05:18 Dilaudid Inj IV PUSH 0.5 mg Q4H PRN Administration Pain Rated 7-10 Lisinopril 10 mg 12/20/19 14:00 12/21/19 08:58 Prinivil PO 10 mg DAILY CECE Administration Ondansetron HCl 4 mg 12/18/19 17:24 12/20/19 22:00 Zofran Inj IV PUSH 4 mg Q4H PRN Administration Nausea Tamsulosin HCl 0.4 mg 12/20/19 09:40 12/21/19 08:58 Flomax PO 0.4 mg DAILY CECE Administration Radiology Results: ITS Impressions Chest/Abdomen/Pelvis CTA 12/18/19 16:21 IMPRESSION: 1. Cholelithiasis and radiographically uncomplicated acute interstitial pancreatitis. No evident obstructing gallstone or intra-/extra hepatic biliary ductal dilation. 2. Unchanged 4.9 x 5.0 cm diffuse from ascending thoracic aortic aneurysm. No aortic dissection or aneurysm of the descending thoracic or abdominal aorta. 3. Bilateral nonobstructing nephrolithiasis. Upper Quadrant Ultrasound 12/20/19 08:56 IMPRESSION: 1: Cholelithiasis with mild gallbladder wall thickening. 2: Hepatic steatosis. Labs Labs: Laboratory Results - last 24 hr 12/21/19 12/21/19 08:02 08:02 WBC 14.8 H RBC 4.02 L Hgb 12.4 L Hct 36.8 L MCV 91.5 MCH 30.8 MCHC 33.7 RDW 13.7 Plt Count 150 MPV 10.7 H Sodium 138 Potassium 3.4 Chloride 108 H Carbon Dioxide 23 BUN 17 Creatinine 1.00 Estim Creat Clear Calc 74 Estimated GFR > 60 Glucose 147 H Calcium 8.2 L Total Bilirubin 1.0 AST 23 ALT 10 Alkaline Phosphatase 61 Total Protein 6.0 L Albumin 3.4 L Lipase 198
--- NOTE | 2019-12-21 10:12 | PM.PNGS ---
Progress Note: A&P Assessment and Plan (1) Acute pancreatitis: Qualifiers: Acute pancreatitis complication: no infection or necrosis Pancreatitis type: unspecified pancreatitis type Qualified Code(s): K85.90 - Acute pancreatitis without necrosis or infection, unspecified Code(s): K85.90 - Acute pancreatitis without necrosis or infection, unspecified Status: Acute Assessment and Plan: Lipase continues to improve - 198 this morning. Having some abdominal pain and nausea with breakfast. Will keep him on clear liquids today, pre-operatively. Plan to proceed with cholecystectomy tomorrow afternoon. NPO after midnight. Patient agreeable to proceed and questions have been answered. Leukocytosis improved today, not currently on antibiotics. Will plan to give pre-operative IV abx tomorrow. Encouraged patient to ambulate and walk the halls today. (2) Cholelithiasis: Code(s): K80.20 - Calculus of gallbladder without cholecystitis without obstruction Status: Acute Assessment and Plan: See plan above. 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 Received one dose yesterday but otherwise has been held since hospitalization. (4) Coronary artery disease: Code(s): I25.10 - Atherosclerotic heart disease of [place] coronary artery without angina pectoris Status: Acute (5) Paroxysmal atrial fibrillation: Code(s): I48.0 - Paroxysmal atrial fibrillation Status: Acute (6) Thoracic aortic aneurysm: Qualifiers: Presence of rupture: without rupture Qualified Code(s): I71.2 - Thoracic aortic aneurysm, without rupture Code(s): I71.2 - Thoracic aortic aneurysm, without rupture Status: Acute (7) Hypertension: Qualifiers: Hypertension type: essential hypertension Qualified Code(s): I10 - Essential (primary) hypertension Code(s): I10 - Essential (primary) hypertension Status: Acute (8) Dyslipidemia: Code(s): E78.5 - Hyperlipidemia, unspecified Status: Acute (9) Obstructive sleep apnea: Code(s): G47.33 - Obstructive sleep apnea (adult) (pediatric) Status: Acute (10) Bradycardia: Code(s): R00.1 - Bradycardia, unspecified Status: Acute Additional Plan Discussed plan of care with Dr. Mckinnon. Subjective Subjective Date/Time Seen: 12/21/19 09:12 Patient reports: still having pain (upper abdominal pain), bowel movement (this morning) and nausea Interval history: Patient reports having an increase in upper abdominal pain and associated nausea during breakfast (clear liquid tray) this morning. Reports having a bowel movement this morning as well. No vomiting or bloating. No other complaints at this time. Review of Systems Review of Systems: All systems reviewed & are unremarkable except as noted in HPI and below Exam Const: General: comfortable, no acute distress, alert and awake Orientation/consciousness: patient oriented x3 GI: Inspection: non-distended GI Palp: Yes Soft to palpation, Yes Tenderness to palpation present (GI) (upper abdominal tenderness, more than yesterday), No Guarding due to palpation present (GI) and No Rebound tenderness present Auscultation: normal bowel sounds Neuro: General: moves all extremities and no focal motor deficits Extrem: General: normal to inspection Psych: Appearance: grossly normal Mental Status: mental status grossly normal Affect: normal affect Attitude: cooperative Thought process: Normal thought process present Objective Data Vital Signs Vital Signs: Vital Signs - 24 hr 12/20/19 12:00 12/20/19 16:00 12/20/19 20:00 Temperature 37.0 C 38.1 C H 37.2 C Pulse Rate 69 71 78 Respiratory Rate 11 L 20 17 Blood Pressure 154/81 H 134/66 Pulse Oximetry 93 97 98 12/20/19 21:20
--- NOTE | 2019-12-21 13:52 | PM.IMPN ---
Progress Note: A&P Assessment and Plan (1) Acute pancreatitis: Qualifiers: Acute pancreatitis complication: no infection or necrosis Pancreatitis type: unspecified pancreatitis type Qualified Code(s): K85.90 - Acute pancreatitis without necrosis or infection, unspecified Code(s): K85.90 - Acute pancreatitis without necrosis or infection, unspecified Status: Acute Assessment and Plan: CTA chest/abdomen/pelvis with cholelithiasis and uncomplicated acute interstitial pancreatitis. Lipase greater than 40,000 on admission. Lipase normal at 198 today. LFTs normal. Clinically improving. Appreciate help from GI and general surgery. Now on full liquids. RUQ with cholelithiasis with mild gallbladder wall thickening. Plan for cholecystectomy tomorrow. Will continue to monitor. (2) Cholelithiasis: Qualifiers: Cholelithiasis location: gallbladder Cholecystitis presence: without cholecystitis Biliary obstruction: without biliary obstruction Qualified Code(s): K80.20 - Calculus of gallbladder without cholecystitis without obstruction Code(s): K80.20 - Calculus of gallbladder without cholecystitis without obstruction Status: Acute Assessment and Plan: Pancreatitis as noted above. RUQ ultrasound with cholelithiasis as noted above. Plan for tomorrow afternoon. Continue to monitor in meantime. (3) Sinus pause: Code(s): I45.5 - Other specified heart block Status: Acute Assessment and Plan: Noted to previously have sinus pause up to 11 seconds. Cardiology consulted and appreciate input. No further sinus pauses seen on review of telemetry on 12/21/2019. Beta-molly discontinued. Will continue to monitor on telemetry at this time. (4) Dehydration: Code(s): E86.0 - Dehydration Status: Acute Assessment and Plan: Result of pancreatitis. Improved. IV fluids discontinued. Will monitor. (5) Hypertension: Qualifiers: Hypertension type: essential hypertension Qualified Code(s): I10 - Essential (primary) hypertension Code(s): I10 - Essential (primary) hypertension Status: Acute Assessment and Plan: Blood pressure reviewed on 12/21/2019 and stable. Now on amlodipine. IV hydralazine remains available as needed. Will continue to monitor. (6) Paroxysmal atrial fibrillation: Code(s): I48.0 - Paroxysmal atrial fibrillation Status: Acute Assessment and Plan: Telemetry reviewed on 12/21/2019 and remains in atrial fibrillation with heart rate controlled. Beta-molly on hold. Not on anticoagulation prior to admission. Echocardiogram with EF 50-55%, diastolic function indeterminate, mild concentric left ventricular hypertrophy, no regional wall motion abnormalities. Will continue to monitor. (7) Dyslipidemia: Code(s): E78.5 - Hyperlipidemia, unspecified Status: Acute Assessment and Plan: Stable. Atorvastatin and gemfibrozil held on admission. Atorvastatin remains on hold with gemfibrozil restarted yesterday. (8) Borderline diabetes: Code(s): R73.03 - Prediabetes Status: Acute Assessment and Plan: HgbA1C 5.7. Glucose reviewed on 12/21/2019 with acceptable control. Continue sliding scale insulin as needed. Will continue to monitor. (9) Leukocytosis: Qualifiers: Leukocytosis type: unspecified Qualified Code(s): D72.829 - Elevated white blood cell count, unspecified Code(s): D72.829 - Elevated white blood cell count, unspecified Status: Acute Assessment and Plan: WBC 22,000 on admission. Result of inflammation from acute pancreatitis. WBC continues to improve but 14.8 today. Will follow. (10) Obstructive sleep apnea: Code(s): G47.33 - Obstructive sleep apnea (adult) (pediatric) Status: Acute Assessment and Plan: Not able to tolerate CPAP. Remains on room air. Will monitor. (11) [place]
[2019-12-21] MEDS: ONDANSETRON INJ 4 MG/2 ML VIAL IV PUSH (14:59)
--- NOTE | 2019-12-21 15:03 | PM.PNCARD ---
Progress Note: A&P Assessment and Plan (1) AV block: Code(s): I44.30 - Unspecified atrioventricular block Status: Acute Assessment and Plan: Evidence of AV node dysfunction with first-degree AV block at baseline and some significant pauses noticed following admission with high-grade AV block as the mechanism. It is less likely that this represents vasovagal phenomenon since we would expect primarily to see sinus arrest in that instance and this appears to show evidence of ongoing sinus activity but with AV block. Beta-molly has been discontinued. No further significant pauses on tele monitor at this point. No indication for pacemaker unless he has further pauses. Continue to monitor on telemetry. (2) Paroxysmal atrial fibrillation: Code(s): I48.0 - Paroxysmal atrial fibrillation Status: Acute Assessment and Plan: Previous history of asymptomatic paroxysmal atrial fibrillation. Had been anticoagulated with apixaban in the past. Has been in atrial fibrillation for the most part. Rate is controlled. Some pauses noted. Longest measured 2.4 seconds Echo 12/20/2019:Left ventricular chamber size and systolic function are normal with no regional wall motion abnormalities with an estimated ejection fraction of 50-55%. Mild concentric left ventricular hypertrophy. Diastolic function indeterminate. Left atrial chamber dimension is mildly enlarged. The proximal ascending aorta size is moderately dilated, 5.0 cm. No significant valve disease. CHA2DS VASc score= 4. Anticoagulation would be recommended. Surgery is planned for tomorrow (3) Thoracic aortic aneurysm: Qualifiers: Presence of rupture: without rupture Qualified Code(s): I71.2 - Thoracic aortic aneurysm, without rupture Code(s): I71.2 - Thoracic aortic aneurysm, without rupture Status: Acute Assessment and Plan: CTA 12/18/2019:Unchanged 4.9 x 5.0 cm diffuse from ascending thoracic aortic aneurysm. No aortic dissection or aneurysm of the descending thoracic or abdominal aorta. (4) Cholelithiasis: Code(s): K80.20 - Calculus of gallbladder without cholecystitis without obstruction Status: Acute Assessment and Plan: Abdominal ultrasound 12/20/2019:There are multiple gallstones. Gallbladder wall is mildly thickened measuring 3-4 mm. Common bile duct measures 3 mm. No sonographic Barron's sign. Surgery tomorrow . (5) CAD (coronary artery disease) of artery bypass graft: Code(s): I25.810 - Atherosclerosis of coronary artery bypass graft(s) without angina pectoris Status: Acute Assessment and Plan: History of coronary artery disease previous PCI more than 10 years ago and no overt ischemic problem since then. He has been taking 81 mg of aspirin as well as clopidogrel 75 mg daily. Continue clopidogrel, gemfibrozil and atorvastatin. Clopidogrel on hold for surgery. Additional Plan Plan discussed with Dr Umana 1510 12/21/2019 Subjective Date/time seen: 12/21/19 15:03 Interval history: Follow-up for: AV node dysfunction with significant pauses with high-grade AV block, paroxysmal atrial fibrillation, history of coronary artery disease with in bed intervention approximately 10 years ago. Date of Service: 12/21/2019 Subjective: I thought I was going to get worse . Having nausea. No abdominal pain. No chest discomfort, shortness of breath or lightheadedness. Walked around the nurses station today Review of Systems Constitutional: Constitutional: Denies chills and Denies fatigue Eyes: Eyes: Denies blurry vision ENT: Denies dizziness, Denies lip swelling and Denies epistaxis Cardiovascular: Cardiovascular: Denies chest pain, Denies lightheadedness and Denies dyspnea Respiratory: Respiratory: Denies dyspnea Gastrointestinal: Gastrointe
[2019-12-21] MEDS: POTASSIUM CHLORIDE 20 MEQ TABLET 40 MEQ PO (16:19)
[2019-12-21] MEDS: ACETAMINOPHEN 500 MG TABLET 1000 MG PO (22:03)
[2019-12-22] VITALS (14 sets, daily range): BP systolic 126–168; BP diastolic 70–95; PULSE 63–85; RESP 16–24; TEMP 36.4–37; O2SAT 94–97
[2019-12-22] MEDS: ONDANSETRON INJ 4 MG/2 ML VIAL IV PUSH ×3 (04:13→15:15)
[2019-12-22 06:30] LABS: Alanine Aminotransferase 9 U/L (4-50); Albumin Level 3.5 g/dL (3.5-5.1); Alkaline Phosphatase 65 U/L (38-126); Aspartate Amino Transferase 20 U/L (17-59); Bilirubin,Total 0.8 mg/dL (0.2-1.3); Blood Urea Nitrogen 14 mg/dL (9-20); Calcium 8.4 mg/dL (8.4-10.2); Carbon Dioxide 23 mmol/L (22-30); Chloride 107 mmol/L (98-107); Estimated CRCL calculation 91 ml/min; Estimated Glomerular Filt Rate > 60; Glucose 118 mg/dL (75-110); Lipase 188 U/L (23-300); Potassium 3.5 mmol/L (3.4-5.0); Sodium 137 mmol/L (137-145)
--- NOTE | 2019-12-22 08:59 | PC.NURSE ---
Dr Mckinnon notified that patient refused SCD hose during the night.
[2019-12-22] MEDS: LACTATED RINGERS 1,000 ML 100 ML IV CONT (09:10)
--- NOTE | 2019-12-22 09:11 | WPDGIPROGNO ---
Progress Note: A&P Additional Plan patient is alert and comfortable this morning. He does reports some low abdominal vague discomfort throughout the night. Physical exam reveals him to be alert. Heart rate appropriate this time bradycardia has resolved. Lungs are clear. Heart with Velasquez out murmur abdominis soft nontender with no hepatosplenomegaly. Impression 1. At gallstone pancreatitis. Pancreatitis appears resolved. Agree with plans for cholecystectomy today. 2. Bradycardia. Currently appears resolved. He did have an AV block at the time of admission. Cardiology aware and following. Conservative management suggested. 3. Atrial fibrillation. This is chronic. I agree that anticoagulation should be held until after surgery accomplished. Subjective Date/time seen: 12/22/19 09:11 Objective Data Vital Signs Vital Signs: Vital Signs - 24 hr 12/21/19 12:00 12/21/19 14:00 12/21/19 16:00 Temperature 37.4 C Pulse Rate 69 78 74 Respiratory Rate 20 Blood Pressure 122/61 Pulse Oximetry 90 12/21/19 20:00 12/21/19 22:00 12/22/19 00:00 Temperature 37.2 C Pulse Rate 78 71 75 Respiratory Rate 20 Blood Pressure 149/78 H Pulse Oximetry 93 12/22/19 04:00 12/22/19 06:00 Temperature 37.0 C Pulse Rate 78 82 Respiratory Rate 20 Blood Pressure 165/88 H Pulse Oximetry 95 Intake/Output Intake/Output: Intake & Output 12/19/19 12/20/19 12/21/19 12/22/19 23:59 23:59 23:59 23:59 Intake Total 4000 4080 330 Output Total 1375 1800 Balance 2625 2280 330 Meds/Results Medications: Active Medications Generic Name Dose Route Start Last Admin Trade Name Freq PRN Reason Stop Dose Admin Amlodipine Besylate 2.5 mg 12/20/19 09:40 12/21/19 08:57 Norvasc PO 2.5 mg DAILY CECE Administration Atorvastatin Calcium 20 mg 12/20/19 09:40 12/21/19 08:57 Lipitor PO 20 mg DAILY CECE Administration Clopidogrel Bisulfate 75 mg 12/20/19 09:40 12/20/19 11:35 Plavix PO 75 mg DAILY CECE Administration Famotidine 20 mg 12/19/19 09:00 12/21/19 20:18 Pepcid Iv IV PUSH 20 mg Q12HR CECE Administration Gemfibrozil 600 mg 12/20/19 09:55 12/21/19 20:18 Lopid PO 600 mg Q12HR CECE Administration Hydromorphone HCl 0.5 mg 12/18/19 17:24 12/20/19 05:18 Dilaudid Inj IV PUSH 0.5 mg Q4H PRN Administration Pain Rated 7-10 Lactated Ringer's 1,000 mls @ 30 mls/hr 12/22/19 09:00 Lr - Lactated Ringers Iv IV CONT .Q24H CECE Lactated Ringer's 1,000 mls @ 100 mls/hr 12/22/19 09:10 Lr - Lactated Ringers Iv IV CONT .Q10H CECE Lisinopril 10 mg 12/20/19 14:00 12/21/19 08:58 Prinivil PO 10 mg DAILY CECE Administration Ondansetron HCl 4 mg 12/18/19 17:24 12/22/19 08:41 Zofran Inj IV PUSH 4 mg Q4H PRN Administration Nausea Tamsulosin HCl 0.4 mg 12/20/19 09:40 12/21/19 08:58 Flomax PO 0.4 mg DAILY CECE Administration Radiology Results: ITS Impressions Chest/Abdomen/Pelvis CTA 12/18/19 16:21 IMPRESSION: 1. Cholelithiasis and radiographically uncomplicated acute interstitial pancreatitis. No evident obstructing gallstone or intra-/extra hepatic biliary ductal dilation. 2. Unchanged 4.9 x 5.0 cm diffuse from ascending thoracic aortic aneurysm. No aortic dissection or aneurysm of the descending thoracic or abdominal aorta. 3. Bilateral nonobstructing nephrolithiasis. Upper Quadrant Ultrasound 12/20/19 08:56 IMPRESSION: 1: Cholelithiasis with mild gallbladder wall thickening. 2: Hepatic steatosis. Labs Labs: Laboratory Results - last 24 hr 12/22/19 12/22/19 05:45 05:45 Sodium 137 Potassium 3.5 Chloride 107 Carbon Dioxide 23 BUN 14 Creatinine 0.80 Estim Creat Clear Calc 91 Estimated GFR > 60 Glucose 118 H Calcium 8.4 Total Bilirubin 0.8 Direct Bilirubin 0.0 AST 20 ALT 9 Alkaline Phosphatase 65 Total Protein 6.0 L Al
--- NOTE | 2019-12-22 10:52 | PM.IMPN ---
Progress Note: A&P Assessment and Plan (1) Acute pancreatitis: Qualifiers: Acute pancreatitis complication: no infection or necrosis Pancreatitis type: unspecified pancreatitis type Qualified Code(s): K85.90 - Acute pancreatitis without necrosis or infection, unspecified Code(s): K85.90 - Acute pancreatitis without necrosis or infection, unspecified Status: Acute Assessment and Plan: CTA chest/abdomen/pelvis with cholelithiasis and uncomplicated acute interstitial pancreatitis. Lipase greater than 40,000 on admission. Lipase now remains normal. LFTs normal. Clinically has improved. Appreciate help from GI and general surgery. RUQ ultrasound with cholelithiasis with mild gallbladder wall thickening. Plan for laparoscopic cholecystectomy this afternoon. (2) Cholelithiasis: Qualifiers: Biliary obstruction: without biliary obstruction Cholecystitis presence: without cholecystitis Cholelithiasis location: gallbladder Qualified Code(s): K80.20 - Calculus of gallbladder without cholecystitis without obstruction Code(s): K80.20 - Calculus of gallbladder without cholecystitis without obstruction Status: Acute Assessment and Plan: Pancreatitis as noted above. RUQ ultrasound with cholelithiasis as noted above. Plan for laparoscopic cholecystectomy this afternoon. (3) Sinus pause: Code(s): I45.5 - Other specified heart block Status: Acute Assessment and Plan: Noted to previously have sinus pause up to 11 seconds. Cardiology consulted and appreciate input. No further sinus pauses seen on review of telemetry on 12/22/2019. Beta-molly discontinued. Will continue to monitor on telemetry at this time. (4) Paroxysmal atrial fibrillation: Code(s): I48.0 - Paroxysmal atrial fibrillation Status: Acute Assessment and Plan: Telemetry reviewed on 12/22/2019 with atrial fibrillation with heart rate controlled. Beta-molly on hold. Not on anticoagulation prior to admission. Echocardiogram with EF 50-55%, diastolic function indeterminate, mild concentric left ventricular hypertrophy, no regional wall motion abnormalities. Will continue to monitor. (5) Dehydration: Code(s): E86.0 - Dehydration Status: Acute Assessment and Plan: Result of pancreatitis. Improved. Will monitor with surgery today. (6) Hypertension: Qualifiers: Hypertension type: essential hypertension Qualified Code(s): I10 - Essential (primary) hypertension Code(s): I10 - Essential (primary) hypertension Status: Acute Assessment and Plan: Blood pressure reviewed on 12/22/2019 with mild elevation. Currently on amlodipine. IV hydralazine available as needed. Will reassess after surgery. Adjust treatment as needed. Continue to monitor. (7) Dyslipidemia: Code(s): E78.5 - Hyperlipidemia, unspecified Status: Acute Assessment and Plan: Stable. Atorvastatin and gemfibrozil held on admission. Atorvastatin remains on hold with gemfibrozil restarted on 12/20/2019. (8) Borderline diabetes: Code(s): R73.03 - Prediabetes Status: Acute Assessment and Plan: HgbA1C 5.7. Glucose reviewed on 12/22/2019 with continued control. Continue sliding scale insulin as needed. Will continue to monitor. (9) Leukocytosis: Qualifiers: Leukocytosis type: unspecified Qualified Code(s): D72.829 - Elevated white blood cell count, unspecified Code(s): D72.829 - Elevated white blood cell count, unspecified Status: Acute Assessment and Plan: WBC 22,000 on admission. Result of inflammation from acute pancreatitis. WBC better at 14.8 on 01/17/2020. Will follow periodically. (10) Obstructive sleep apnea: Code(s): G47.33 - Obstructive sleep apnea (adult) (pediatric) Status: Acute Assessment and Plan: Not able to tolerate CPAP. Stable on room air. Will mon
[2019-12-22] MEDS: LACTATED RINGERS 1,000 ML 30 ML IV CONT (11:25)
[2019-12-22] MEDS: SCOPOLAMINE 1.5 MG PATCH TRANSDERM (11:40)
--- NOTE | 2019-12-22 11:40 | WPDANESEPPF ---
Anes - Initial Pre Proc Eval Procedure: Operation Date: 12/22/19 13:00 Proposed Procedures p Laparoscopic Cholecystectomy with Intra Operative Cholangiograms, Possible Open - Ish Mckinnon MD Date/Time: 12/22/19 11:40 Surgeon: Joseph Hammond MD Pre Op Diagnosis: Pancreatitis, Bradycardia Patient Data Age: 74 Gender: M Height: 6 ft 1 in Weight: 109.4 kg Last Vital Signs Temp 36.9 C 12/22/19 10:00 Pulse 77 12/22/19 10:00 Resp 16 12/22/19 10:00 BP 158/95 H 12/22/19 10:00 Pulse Ox 94 12/22/19 10:00 Allergies Allergy/AdvReac Type Severity Reaction Status Date / Time No Known Allergies Allergy Verified 12/22/19 11:31 Home Medications Medication Instructions Recorded Confirmed Type acebutolol 200 mg capsule 200 mg PO BID #180 cap 06/02/19 12/18/19 Rx amlodipine 2.5 mg tablet 2.5 mg PO DAILY #90 tablet 06/02/19 12/18/19 Rx atorvastatin 20 mg tablet 20 mg PO DAILY #90 tablet 06/02/19 12/18/19 Rx clopidogrel 75 mg tablet 75 mg PO DAILY #90 tablet 06/02/19 12/18/19 Rx gemfibrozil 600 mg tablet 600 mg PO BID #180 tablet 06/02/19 12/18/19 Rx lisinopril 20 mg tablet 20 mg PO BID #180 tablet 06/02/19 12/18/19 Rx omeprazole 20 mg capsule,delayed 20 mg PO DAILY #90 cap 06/02/19 12/18/19 Rx release tamsulosin 0.4 mg capsule 0.4 mg PO DAILY #90 cap 06/02/19 12/18/19 Rx ascorbic acid (vitamin C) [Vitamin 500 mg PO DAILY 12/18/19 12/18/19 History C] cholecalciferol (vitamin D3) 25 mcg PO DAILY 12/18/19 12/18/19 History [Vitamin D3] cyanocobalamin (vitamin B-12) 1,000 mcg PO DAILY 12/18/19 12/18/19 History [Vitamin B-12] omega 9-sub-jdn-fish oil [Fish Oil] 1 cap PO DAILY 12/18/19 12/18/19 History vitamin E 400 unit PO DAILY 12/18/19 12/18/19 History Laboratory Tests 12/22/19 12/22/19 05:45 05:45 Sodium 137 mmol/L mmol/L (137-145) Potassium 3.5 mmol/L mmol/L (3.4-5.0) Chloride 107 mmol/L mmol/L (98-107) Carbon Dioxide 23 mmol/L mmol/L (22-30) BUN 14 mg/dL mg/dL (9-20) Creatinine 0.80 mg/dL mg/dL (0.7-1.3) Estim Creat Clear Calc 91 ml/min ml/min Estimated GFR > 60 (59 - ) Glucose 118 mg/dL H mg/dL (75-110) Calcium 8.4 mg/dL mg/dL (8.4-10.2) Total Bilirubin 0.8 mg/dL mg/dL (0.2-1.3) Direct Bilirubin 0.0 mg/dL mg/dL (0-0.3) AST 20 U/L U/L (17-59) ALT 9 U/L U/L (4-50) Alkaline Phosphatase 65 U/L U/L (38-126) Total Protein 6.0 g/dL L g/dL (6.3-8.2) Albumin 3.5 g/dL g/dL (3.5-5.1) Lipase 188 U/L U/L (23-300) Blood Type O Positive Antibody Screen Negative Patient hx anesthesia problems: none Family hx anesthesia problems: none PMFSH Past Medical History Medical History Arthritis Borderline diabetes CAD (coronary artery disease) of artery bypass graft Coronary artery disease With history of stents. Dyslipidemia Hypertension Nephrolithiasis Obstructive sleep apnea Intolerant to CPAP. Paroxysmal atrial fibrillation Thoracic aortic aneurysm Stable on imaging dated 12/18/2019. Patient is not interested in surgery. Surgical History Surgical History History of cataract extraction History of heart artery stent (~07/2006) History of lumbar fusion History of tonsillectomy History of total bilateral knee replacement Family History Family History Mother Breast cancer Father Family history of emphysema Daughter Breast cancer Son Valvular heart disease Social History Social History Smoking status: Never smoker Alcohol intake: current Drinks per week: 1 Alcohol use details: States less than 50 drinks per year. Substance use: never Living arrangement
--- NOTE | 2019-12-22 12:21 | WPDHPUPDATE1 ---
History and Physical Update Update Date/Time: 12/22/19 12:21 History and Physical has been reviewed, including an updated exam of the patient. There are changes in the patient's condition. he has improved as far as less abdominal pain. He is still a however having some nausea. Will ask anesthesia to consider use of a scopolamine patch around the time of surgery if safe believe it is okay with his other medications. Patient's lipase has come down to the normal range as have his liver enzymes. He appears to be ready for a laparoscopic cholecystectomy in order to try to prevent future episodes of gallstone pancreatitis. Risks, benefits, and alternatives of a laparoscopic cholecystectomy with possible intraoperative cholangiogram, possible open cholecystectomy have been discussed and questions answered. Patient agrees to proceed with procedure.
[2019-12-22] MEDS: ceFAZolin 2 GM/D5W 50 ML 2 GM/50 ML BAG IVPB (13:14)
[2019-12-22] MEDS: BUPIVACAINE/EPINEPHRINE 0.5% 30 ML VIAL INFILTRATE (13:54)
--- NOTE | 2019-12-22 14:55 | PM.PROC ---
Procedure Note - Detailed Date of procedure: 12/22/19 Pre-op diagnosis: Pancreatitis, Bradycardia 1. Chronic cholecystitis with cholelithiasis 2. Recent pancreatitis Post-op diagnosis: other (1. Chronic cholecystitis with cholelithiasis 2. Recent pancreatitis) Procedure performed: Laparoscopic cholecystectomy with intraoperative cholangiogram. Description of procedure: Procedure Details: Patient was seen preoperatively in the holding area and risks, benefits and alternatives confirmed. Patient was taken to the operating room and general anesthesia was induced. A time out was then preformed with the surgery team confirming patient and site of surgery. The abdomen was prepped and draped in the usual sterile fashion. Incision was made just below the umbilicus. Two stay sutures of O- Vicryl were used to elevate the mid-line fascia beneath the umbilicus and a small incision was made under direct vision. The peritoneum was entered. The 12 mm Singh cannula was introduced under direct vision. First under low flow and then under high flow the abdomen was insufflated with carbon dioxide never exceeding a pressure of 14. Three 5 mm trocars were then introduced under direct vision. The following trocars were introduced under direct vision: a 5 mm in the epigastrium and two 5 mm trocars along the right costal margin. As we retracted the gallbladder was thin-walled and had torso there was some bile leakage. Resection most of this out to decompress the gallbladder then placed a grasper across the defect in the gallbladder for the rest of the case. Was able to dissect out a appropriate window of safety at the neck of the gallbladder. And there was noted to be what appeared to be some friable enlarged lymph nodes in the area of the triangle of Calot. These were retracted and dissected with blunt dissection using a Kittner. The gall bladder was grasped and the cystic duct and artery were dissected free and clipped with an 5 mm endo-clip auto clocks repairer. A small hole was made in the cystic duct with endoshears and a cholagio-cath introduced. A cholangiogram was obtained revealing free flow into the cystic duct, common bile duct, common hepatic, right and left hepatic ducts with free flow into the duodenum with no filling defects in the intra nor extrahepatic biliary tree and no dilation. Prep was noted to be a long thin cystic duct. The catheter was removed and the cystic duct was clipped with a 5 mm endoclip-auto clocks repairer. The cystic duct was then transected. The cystic artery was also transected at this point. The gall bladder was removed using electrocautery and then removed after placing the gallbladder in a endobag and retracting it out of the abdomen via the umbilical incision. The trocars were removed visualizing hemostasis and the remaining gas evacuated. The large trocar site at the umbilicus was closed with an 0 vicryl figure of 8 suture. The 2 stay sutures mentioned above on either side of the fascia were also tied together to help approximate this midline fascia. Further local anesthetic was placed into each incision for postop pain control. The skin incisions were closed with a subcuticular of 4-0 Monocryl. Surgical glue then was applied to all the incisions. Patient tolerated the procedure well was taken to the recovery room in good condition. Anesthesia: GETA Surgeon: Ish Mckinnon MD Courtroom Clerk: BERTO Hoff, OR 1st assist Estimated blood loss (mL): 15 Drains: No Packing: No Pathology: yes (The gallbladder) Complications: No immediate complications Condition: stable Disposition: PACU Findings: The thin walled gallbladder without obvious acute inflammation. There were also some friable slightly enlarged lymph nodes in the area of the triangle of Calot. Cholangiogram revealed a very thin long cystic duct and no filling defects in the biliary system.
[2019-12-22] MEDS: lisinopriL 10 MG TABLET PO (18:02)
[2019-12-22] MEDS: TAMSULOSIN HCL 0.4 MG CAPSULE PO (18:02)
[2019-12-22] MEDS: ATORVASTATIN 20 MG TABLET PO (18:02)
[2019-12-22] MEDS: FAMOTIDINE 20 MG/2 ML VIAL IV PUSH ×2 (18:03→20:46)
[2019-12-22] MEDS: gemfibroziL 600 MG TABLET PO (20:46)
[2019-12-23] VITALS (7 sets, daily range): BP systolic 150–156; BP diastolic 75–88; PULSE 65–77; RESP 18; TEMP 36.8–37.1; O2SAT 18–96
[2019-12-23] MEDS: PHENOL/SOD PHENO SPRAY CHERRY (*BKC) 1 SPRAY MUCOUS MEM (00:05)
[2019-12-23 05:53] LABS: Hematocrit 36.1 % (42.0-52.0); Hemoglobin 12.6 g/dL (14.0-18.0); Mean Corpuscular HGB Conc 34.9 g/dl (32-36); Mean Corpuscular Hemoglobin 31.3 pg (26-34); Mean Corpuscular Volume 89.8 fl (80-100); Platelet Count Result 231 k/mm3 (150-375); Red Blood Count 4.02 M/mm3 (4.6-6.20); Red Cell Distribution Width 13.5 % (11.5-14.5); White Blood Count 14.4 K/mm3 (4.5-10.0)
[2019-12-23 06:09] LABS: Alanine Aminotransferase 16 U/L (4-50); Albumin Level 3.5 g/dL (3.5-5.1); Alkaline Phosphatase 71 U/L (38-126); Aspartate Amino Transferase 47 U/L (17-59); Bilirubin,Total 0.6 mg/dL (0.2-1.3); Blood Urea Nitrogen 16 mg/dL (9-20); Calcium 8.7 mg/dL (8.4-10.2); Carbon Dioxide 26 mmol/L (22-30); Chloride 106 mmol/L (98-107); Estimated CRCL calculation 74 ml/min; Estimated Glomerular Filt Rate > 60; Glucose 111 mg/dL (75-110); Lipase 179 U/L (23-300); Potassium 3.5 mmol/L (3.4-5.0); Sodium 138 mmol/L (137-145)
[2019-12-23] MEDS: FAMOTIDINE 20 MG/2 ML VIAL IV PUSH (08:29)
[2019-12-23] MEDS: ATORVASTATIN 20 MG TABLET PO (08:29)
[2019-12-23] MEDS: gemfibroziL 600 MG TABLET PO (08:29)
[2019-12-23] MEDS: ENOXAPARIN 40 MG/0.4 ML SYRINGE SUB-Q (08:29)
[2019-12-23] MEDS: lisinopriL 10 MG TABLET PO (08:30)
[2019-12-23] MEDS: TAMSULOSIN HCL 0.4 MG CAPSULE PO (08:30)
--- NOTE | 2019-12-23 09:14 | PM.PNCARD ---
Progress Note: A&P Assessment and Plan (1) AV block: Code(s): I44.30 - Unspecified atrioventricular block Status: Acute Assessment and Plan: Evidence of AV node dysfunction with first-degree AV block at baseline and some significant pauses noticed following admission with high-grade AV block as the mechanism. It is less likely that this represents vasovagal phenomenon since we would expect primarily to see sinus arrest in that instance and this appears to show evidence of ongoing sinus activity but with AV block. Beta-molly has been discontinued. No further significant pauses on tele monitor at this point. No indication for pacemaker at this time. (2) Paroxysmal atrial fibrillation: Code(s): I48.0 - Paroxysmal atrial fibrillation Status: Acute Assessment and Plan: Previous history of asymptomatic paroxysmal atrial fibrillation. Had been anticoagulated with apixaban in the past. Remains in atrial fibrillation. Rate is controlled. No significant pauses noted. Echo 12/20/2019:Left ventricular chamber size and systolic function are normal with no regional wall motion abnormalities with an estimated ejection fraction of 50-55%. Mild concentric left ventricular hypertrophy. Diastolic function indeterminate. Left atrial chamber dimension is mildly enlarged. The proximal ascending aorta size is moderately dilated, 5.0 cm. No significant valve disease. CHA2DS VASc score= 4. Anticoagulation would be recommended. Anticoagulation when safe to do so from a surgical perspective. Start apixaban 5 mg q.12 hours. (3) Thoracic aortic aneurysm: Qualifiers: Presence of rupture: without rupture Qualified Code(s): I71.2 - Thoracic aortic aneurysm, without rupture Code(s): I71.2 - Thoracic aortic aneurysm, without rupture Status: Acute Assessment and Plan: CTA 12/18/2019:Unchanged 4.9 x 5.0 cm diffuse from ascending thoracic aortic aneurysm. No aortic dissection or aneurysm of the descending thoracic or abdominal aorta. (4) Cholelithiasis: Qualifiers: Cholelithiasis location: gallbladder Cholecystitis presence: without cholecystitis Biliary obstruction: without biliary obstruction Qualified Code(s): K80.20 - Calculus of gallbladder without cholecystitis without obstruction Code(s): K80.20 - Calculus of gallbladder without cholecystitis without obstruction Status: Acute Assessment and Plan: Laparoscopic cholecystectomy with intraoperative cholangiogram 12/22/2019 . (5) CAD (coronary artery disease) of artery bypass graft: Code(s): I25.810 - Atherosclerosis of coronary artery bypass graft(s) without angina pectoris Status: Acute Assessment and Plan: History of coronary artery disease previous PCI more than 10 years ago and no overt ischemic problem since then. He has been taking 81 mg of aspirin as well as clopidogrel 75 mg daily. Continue clopidogrel, gemfibrozil and atorvastatin. Clopidogrel on hold for surgery. Restart clopidogrel for coronary artery disease when safe to do so from a surgical perspective. Will be being anticoagulated with apixaban for atrial fibrillation. Additional Plan Plan discussed with Dr. Padilla 0915 12/23/2019 Subjective Date/time seen: 12/23/19 09:14 Interval history: Follow-up for: AV node dysfunction with significant pauses with high-grade AV block, paroxysmal atrial fibrillation, history of coronary artery disease with in bed intervention approximately 10 years ago. Date of Service: 12/21/2019 Subjective: I thought I was going to get worse . Having nausea. No abdominal pain. No chest discomfort, shortness of breath or lightheadedness. Walked around the nurses station today Review of Systems Constitutional: Constitutional: Denies chills and Denies fati
--- NOTE | 2019-12-23 10:00 | PM.PNGS ---
Progress Note: A&P Assessment and Plan (1) Cholelithiasis: Onset Date: ~11/2019 Qualifiers: Biliary obstruction: without biliary obstruction Cholecystitis presence: without cholecystitis Cholelithiasis location: gallbladder Qualified Code(s): K80.20 - Calculus of gallbladder without cholecystitis without obstruction Code(s): K80.20 - Calculus of gallbladder without cholecystitis without obstruction Status: Acute Assessment and Plan: Patient doing well postop day 1 status post laparoscopic cholecystectomy. I still think we need to keep in mind the possibility of pancreatitis having its source something other than the gallstones because the the patient's cystic duct was very thin and there were no common bile duct stones. His gallbladder was not inflamed. Other possibilities may be drug induced or idiopathic. Doubt it to be secondary to alcohol or high lipids. However, to be cautious I suggested the patient and his daughter that he avoid alcohol for least the next 2 months. (2) Acute pancreatitis: Onset Date: ~11/2019 Qualifiers: Acute pancreatitis complication: no infection or necrosis Pancreatitis type: unspecified pancreatitis type Qualified Code(s): K85.90 - Acute pancreatitis without necrosis or infection, unspecified Code(s): K85.90 - Acute pancreatitis without necrosis or infection, unspecified Status: Resolved Assessment and Plan: this appears to have resolved with a normal lipase this morning and yesterday morning prior to surgery. He is not having continuing abdominal pain. (3) Paroxysmal atrial fibrillation: Onset Date: Unknown Code(s): I48.0 - Paroxysmal atrial fibrillation Status: Acute Assessment and Plan: Cardiology apparently planning to pursue long-term anticoagulation. This could be started tomorrow. The patient has been on long-term Plavix therapy. I wonder if he needs both of these? and might be nice to stop the Plavix if it is felt that had coagulation with Eliquis or something else is adequate to also protect his heart vessels. (4) Hypertension: Onset Date: Unknown Qualifiers: Hypertension type: essential hypertension Qualified Code(s): I10 - Essential (primary) hypertension Code(s): I10 - Essential (primary) hypertension Status: Acute Subjective Subjective Date/Time Seen: 12/23/19 10:00 Post Op day: 1 (Doing well postop day 1) Patient reports: no new complaints, pain is less and tolerating liquids well Interval history: patient states that the nausea he had preop has dissipated. He is willing to go home now. He has talked to cardiology nurse practitioner about his plans for home. I discussed the situation with Amarilis from hospitalist and she is plan of discharge the patient to later today. Cardiology does want to put him on anticoagulation I believe he could start this tomorrow morning. He probably needs to be worn about the risks of anticoagulation. Review of Systems Constitutional: Constitutional: Reports no additional constitutional complaints ENT: Reports other (Mucous Membranes moist.) Cardiovascular: Cardiovascular: Denies dyspnea Respiratory: Respiratory: Denies pain on inspiration and Denies dyspnea Musculoskeletal: Musculoskeletal: Reports other (No calf swelling or edema) Integumentary/Breasts: Skin/Breast: Reports system reviewed and no additional complaints, except as docu Exam Const: General: cooperative, no acute distress, alert and awake Orientation/consciousness: patient oriented x3 HENMT: Mouth: Yes moist mucous membranes Neck: Neck: normal visual inspection Chest: Chest palpation & inspection: normal inspection of the chest Resp: Effort & Inspection: normal respiratory effort Auscultation: clear to auscultation bilaterally Cardio: Jugular venous distension: no JVD Rate: regular rate Rhythm: regular rhythm GI: Inspection: incis
--- NOTE | 2019-12-23 10:16 | PM.DS ---
DS: Admitting Diagnosis Admitting Diagnosis Admitting Diagnosis: Acute pancreatitis without necrosis or infection, unspecified DS: Discharge Diagnosis Discharge Diagnosis (1) Acute pancreatitis: Onset Date: ~11/2019 Qualifiers: Acute pancreatitis complication: no infection or necrosis Pancreatitis type: unspecified pancreatitis type Qualified Code(s): K85.90 - Acute pancreatitis without necrosis or infection, unspecified Code(s): K85.90 - Acute pancreatitis without necrosis or infection, unspecified Status: Resolved (2) Cholelithiasis: Onset Date: ~11/2019 Qualifiers: Cholelithiasis location: gallbladder Cholecystitis presence: without cholecystitis Biliary obstruction: without biliary obstruction Qualified Code(s): K80.20 - Calculus of gallbladder without cholecystitis without obstruction Code(s): K80.20 - Calculus of gallbladder without cholecystitis without obstruction Status: Resolved (3) Sinus pause: Code(s): I45.5 - Other specified heart block Status: Resolved (4) Paroxysmal atrial fibrillation: Onset Date: Unknown Code(s): I48.0 - Paroxysmal atrial fibrillation Status: Chronic (5) Dehydration: Code(s): E86.0 - Dehydration Status: Resolved (6) Hypertension: Onset Date: Unknown Qualifiers: Hypertension type: essential hypertension Qualified Code(s): I10 - Essential (primary) hypertension Code(s): I10 - Essential (primary) hypertension Status: Chronic (7) Dyslipidemia: Code(s): E78.5 - Hyperlipidemia, unspecified Status: Chronic (8) Borderline diabetes: Code(s): R73.03 - Prediabetes Status: Acute (9) Leukocytosis: Qualifiers: Leukocytosis type: unspecified Qualified Code(s): D72.829 - Elevated white blood cell count, unspecified Code(s): D72.829 - Elevated white blood cell count, unspecified Status: Acute (10) Obstructive sleep apnea: Code(s): G47.33 - Obstructive sleep apnea (adult) (pediatric) Status: Chronic (11) Thoracic aortic aneurysm: Qualifiers: Presence of rupture: without rupture Qualified Code(s): I71.2 - Thoracic aortic aneurysm, without rupture Code(s): I71.2 - Thoracic aortic aneurysm, without rupture Status: Chronic DS: Summary Hospital Course Reason for hospitalization: Abdominal Pain Hospital Course: Mr. Hernandez is a 74 y.o. male with PMH significant for CAD, thoracic aortic aneurysm, hypertension, hyperlipidemia, CAD, MEGAN, GERD, and paroxysmal atrial fibrillation who presented to the ED 12/18/19 with c/o acute onset nausea, epigastric abdominal pain with radiation to the back, and emesis. Initial workup in the ED revealed WBC 21,700, Hb 15.7, Hct 45.8, platelets 262, sodium 144, potassium 3.6, Cl 107, chloride 26, BUN 21, Cr 1.5, glucose 158, bilirubin 0.9, AST 25, ALT 13, ALP 108, troponin <0.012, lactic acid 2.2, and lipase markedly elevated at >40,000. CTA chest/abdomen/pelvis revealed cholelithiasis and acute interstitial pancreatitis without evidence of obstructing gallstone or intra/extra hepatic biliary ductal dilation. His ascending thoracic aneurysm was also visualized and unchanged at 4.9x5.0 cm. He reported rare alcohol use and has a hx of known hypertriglyceridemia. He was treated with bowel rest, IV fluid rehydration, analgesics/antiemetics PRN. He had episodes of sinus pause up to 8 seconds in the ED so he was admitted to the ICU initially. Cardiology was consulted and recommended to hold beta-blockers and monitor closely. This was felt to be due to AV node dysfunction with first-degree AV block at baseline. He had no further significant pauses on telemetry after discontinuation of his beta-molly. He continued to improve clinically from his acute pancreatitis with conservative therapy and his lipase and LFTs normalized. RUQ US revealed cholelithiasis with mild gallblad
--- NOTE | 2019-12-23 12:26 | WPDGIPROGNO ---
Progress Note: A&P Additional Plan Patient doing well. Feels better after Cholecystectomy per physical exam reveals patient be alert. Vital signs stable. HEENT exam unremarkable. He is anicteric. Lungs are clear. Heart without murmur. Abdomen soft , some incisional tenderness noted. Impression 1. Gallstone pancreatitis. Pancreatitis improved. Patient now status post cholecystectomy. Plan to advance diet per surgery. Low-fat diet advised Subjective Date/time seen: 12/23/19 12:26 Objective Data Vital Signs Vital Signs: Vital Signs - 24 hr 12/22/19 14:54 12/22/19 15:08 12/22/19 15:33 Temperature 36.6 C Pulse Rate 73 63 66 Respiratory Rate 24 H 17 18 Blood Pressure 126/70 138/73 155/92 H Pulse Oximetry 95 96 96 12/22/19 15:55 12/22/19 16:03 12/22/19 16:18 Temperature 36.6 C 36.6 C 36.6 C Pulse Rate 72 72 77 Respiratory Rate 18 18 18 Blood Pressure 147/90 H 148/80 H 150/75 H Pulse Oximetry 95 95 97 12/22/19 16:48 12/22/19 20:00 12/22/19 22:06 Temperature 36.8 C 36.4 C L Pulse Rate 75 77 85 Respiratory Rate 18 18 Blood Pressure 138/75 168/95 H Pulse Oximetry 96 94 12/23/19 00:00 12/23/19 04:00 12/23/19 06:00 Temperature 37.1 C Pulse Rate 75 68 77 Respiratory Rate 18 Blood Pressure 156/88 H Pulse Oximetry 94 12/23/19 08:00 12/23/19 08:06 12/23/19 12:00 Temperature Pulse Rate 72 65 Respiratory Rate Blood Pressure Pulse Oximetry 96 Intake/Output Intake/Output: Intake & Output 12/20/19 12/21/19 12/22/19 12/23/19 23:59 23:59 23:59 23:59 Intake Total 4080 330 500 690 Output Total 1800 500 500 Balance 2280 330 0 190 Meds/Results Medications: Active Medications Generic Name Dose Route Start Last Admin Trade Name Freq PRN Reason Stop Dose Admin Acetaminophen 500 mg 12/22/19 16:03 Tylenol Tablet PO Q6H PRN Mild Pain (1-3) or Fever Hydrocodone Bitart/Acetaminophen 1 tab 12/22/19 16:03 [place] 5-325 Mg PO Q6H PRN Pain Rated 4-6 Hydrocodone Bitart/Acetaminophen 1 tab 12/22/19 16:03 [place] 7.5-325 Mg PO Q6H PRN Pain Rated 7-10 Atorvastatin Calcium 20 mg 12/20/19 09:40 12/23/19 08:29 Lipitor PO 20 mg DAILY [facility] Administration Clopidogrel Bisulfate 75 mg 12/20/19 09:40 12/20/19 11:35 Plavix PO 75 mg DAILY [facility] Administration Diphenhydramine HCl 25 mg 12/22/19 16:03 Benadryl Inj IV PUSH Q6H PRN Itching Enoxaparin Sodium 40 mg 12/23/19 09:00 12/23/19 08:29 Lovenox SUB-Q 40 mg DAILY [facility] Administration Famotidine 20 mg 12/19/19 09:00 12/23/19 08:29 Pepcid Iv IV PUSH 20 mg Q12HR [facility] Administration Fentanyl Citrate 25 mcg 12/22/19 11:41 Sublimaze IV PUSH Q2M PRN Pain Gemfibrozil 600 mg 12/20/19 09:55 12/23/19 08:29 Lopid PO 600 mg Q12HR [facility] Administration Lisinopril 10 mg 12/20/19 14:00 12/23/19 08:30 Prinivil PO 10 mg DAILY [facility] Administration Morphine Sulfate 2 mg 12/22/19 16:03 Morphine Sulfate Inj IV PUSH Q2H PRN Pain Rated 4-6 Morphine Sulfate 4 mg 12/22/19 16:03 Morphine Sulfate Inj IV PUSH Q2H PRN Pain Rated 7-10 Naloxone HCl 0.1 mg 12/22/19 16:03 Narcan IV PUSH Q2M PRN Opiate Reversal Ondansetron HCl 4 mg 12/18/19 17:24 12/22/19 08:41 Zofran Inj IV PUSH 4 mg Q4H PRN Administration Nausea Ondansetron HCl 4 mg 12/22/19 11:41 12/22/19 15:15 Zofran Inj IV PUSH 4 mg ONCE PRN Administration Nausea Phenol 1 spray 12/22/19 23:44 12/23/19 00:05 Chloraseptic [place] MUCOUS MEM 1 spray PRN PRN Administration Sore Throat Scopolamine 1.5 mg 12/22/19 09:00 12/22/19 11:40 Transderm-Scop TRANSDERM 1.5 mg Q72HR [facility] Administration Senna/Docusate Sodium 2 tab 12/22/19 21:00 12/23/19 01:06 Senokot S Tablet PO Not Given [facility] Tamsulosin HCl 0.4 mg 12/20/19 09:40 12/23/19 08:3
--- NOTE | 2019-12-23 14:36 | PC.NURSE ---
Pt has been discharged from the facility. Pt removed his own IV and tele. Discharge paperwork was reviewed with pt, and opportunity for questions was provided. Pt exhibited understanding of discharge instructions. Pt was wheeled to front door by staff, and pt then ambulated to his daughter's car.
== END 2019-12-23 14:25 | disposition home or self-care (01) | DRG 418 ==
LOC: ANHED 18:08 → ANHICU 18:51 → ANH3MEDSUR 12-21 09:29 → ANHICU 12-26 13:28
PROVIDERS: Hospitalist; Internal Medicine; Physician Assistant; Surgery; Admitting Provider Family Medicine; Emergency Provider Emergency Medicine; PCP Internal Medicine; Visit Provider Physician Assistant
PROC: 0FT44ZZ Resection of Gallbladder, Percutaneous Endoscopic Approach (ICD-10-PCS; CPT 47562; principal; 2019-12-22 13:00)
DX: K85.10 Biliary acute pancreatitis without necrosis or infection (principal); I25.810 Atherosclerosis of coronary artery bypass graft(s) without angina pectoris; K80.10 Calculus of gallbladder with chronic cholecystitis without obstruction; I44.39 Other atrioventricular block; I48.0 Paroxysmal atrial fibrillation; E86.0 Dehydration; I10 Essential (primary) hypertension; R00.1 Bradycardia, unspecified; E78.5 Hyperlipidemia, unspecified; R73.03 Prediabetes; D72.829 Elevated white blood cell count, unspecified; G47.33 Obstructive sleep apnea (adult) (pediatric); K21.9 Gastro-esophageal reflux disease without esophagitis; M19.90 Unspecified osteoarthritis, unspecified site; E78.1 Pure hyperglyceridemia; I71.2 Thoracic aortic aneurysm, without rupture; E66.9 Obesity, unspecified; Z68.32 Body mass index [BMI] 32.0-32.9, adult; Z98.42 Cataract extraction status, left eye; Z98.41 Cataract extraction status, right eye; Z96.653 Presence of artificial knee joint, bilateral; Z95.5 Presence of coronary angioplasty implant and graft; Z98.1 Arthrodesis status; Z86.010 Personal history of colon polyps; Z80.0 Family history of malignant neoplasm of digestive organs; Z79.02 Long term (current) use of antithrombotics/antiplatelets
CPT/HCPCS: 36415; 71275; 74174; 74300; 76705; 80048; 80053; 80076; 81001; 83036; 83605; 83615; 83690; 83735; 84100; 84443; 84478; 84484; 85025; 85027; 85610; 85730; 86850; 86900; 86901; 87040; 88304; 93005; 96361; 96365; 96367; 96375; 96376; 99285; A9270; C8929; J0131; J0360; J0690; J0780; J1100; J1170; J1650; J1885; J2001; J2270; J2405; J2543; J2704; J2710; J3010; J3475; J7030; J7120; Q9957; Q9966; Q9967

== ENCOUNTER 2020-01-28 01:39 | Outpatient (CLI) | payer MEDICARE, SELFPAY ==
[2020-01-28 18:09] LABS: SARS-CoV-2 RNA PCR Negative
== END 2020-01-28 01:40 | disposition home or self-care (01) ==
LOC: ANHCOVIDDT 01:40
PROVIDERS: PCP Internal Medicine; Visit Provider Internal Medicine Cardiovascular Disease
DX: Z01.818 Encounter for other preprocedural examination (principal); Z11.59 Encounter for screening for other viral diseases
CPT/HCPCS: 87635; C9803; U0003

== ENCOUNTER 2020-01-31 05:28 | Day surgery (SDC) | payer MEDICARE, SELFPAY ==
[2020-01-30 14:45] VITALS: BMI 29.6
--- NOTE | 2020-01-31 08:00 | ECG_ITS ---
Measurements Intervals [place] Rate: 62 P: 72 [place]: 285 QRS: -36 QRSD: 109 T: 72 QT: 418 QTc: 426 Interpretive Statements SINUS RHYTHM WITH FIRST DEGREE AV BLOCK LEFT AXIS DEVIATION BORDERLINE ST-T WAVE ABNORMALITY- HIGH LATERAL LEADS ABNORMAL ECG Electronically Signed On 01-31-2020 8:43:04 CDT by Charles Nichols D.O.
--- NOTE | 2020-01-31 08:22 | SUR.PREOP ---
0820-pt presents to the [facility] for a CV. EKG performed and found to be in NSR with a first degree block. SPARE FIXER informed and EKG transmitted. Will continue to monitor.
--- NOTE | 2020-01-31 10:40 | SUR.PREOP ---
0900-PT GIVEN FOLLOW-UP APPOINTMENT TIME AND AMBULATED PER REQUEST TO VEHICLE. NO DISTRESS NOTED AT TIME OF D/C. AOX4.
== END 2020-01-31 10:43 | disposition home or self-care (01) ==
PROVIDERS: PCP Internal Medicine; Visit Provider Internal Medicine Cardiovascular Disease
PROC: 5A2204Z Restoration of Cardiac Rhythm, Single (ICD-10-PCS; principal; 2020-01-31 09:30)
DX: I48.0 Paroxysmal atrial fibrillation (principal); Z53.8 Procedure and treatment not carried out for other reasons
CPT/HCPCS: 93005; 99211; G0463; J7040

== ENCOUNTER 2020-03-09 01:20 | Outpatient (CLI) | payer MEDICARE, SELFPAY ==
[2020-03-09 19:18] LABS: SARS-CoV-2 RNA PCR Negative
== END 2020-03-09 01:21 | disposition home or self-care (01) ==
LOC: ANHCOVIDDT 01:20
PROVIDERS: PCP Internal Medicine; Visit Provider Internal Medicine Cardiovascular Disease
DX: Z01.812 Encounter for preprocedural laboratory examination (principal); Z20.828 Contact with and (suspected) exposure to other viral communicable diseases
CPT/HCPCS: 87635; C9803; U0003

== ENCOUNTER 2020-03-09 19:59 | Inpatient (IN) | payer MEDICARE, SELFPAY ==
--- NOTE | ~2020-03-09 | CT_ITS ---
EXAMINATION: CT abdomen pelvis w con DATE: 03/09/2020 21:37 INDICATION: Epigastric pain. TECHNIQUE: Computed tomography (CT) of the abdomen and pelvis was performed with 100 mL Omnipaque-350 intravenous contrast. Automated exposure control and iterative reconstruction technique were employe d. The dose-length product was 1046.07 mGy-cm. COMPARISON: 12/18/2019 FINDINGS: Mild dependent atelectasis in the bilateral lower lobes. Heart size is normal. Atherosclerotic love ry artery calcifications. No pericardial or pleural effusion. Cholecystectomy clips at the gallbladde r fossa. Liver, spleen, bilateral adrenal glands are normal. Bilateral nonobstructing nephrolithiasis including 8 mm stone in the lower pole calyx of the right kidney and 3 additional 1-2 mm stones in t he right kidney and a 2-3 mm stone in the left kidney. No hydronephrosis. Multiple dystrophic calcifications scattered throughout the pancreas with prominent per pancreatic in flammatory stranding centered at the head and body consistent with recurrent acute interstitial pancr eatitis. There is an approximately 3.6 x 1.7 cm density in the mesenteric fat along the anteroinferio r margin of the pancreatic body with slightly greater than simple fluid attenuation could represent a n acute peripancreatic fluid collection, small amount of hemorrhage or residual pancreatic pseudocyst related to the earlier pancreatitis. Likely reactive mild edematous wall thickening along the adjacent gastric antrum. Small amount of ret roperitoneal fluid also tracks along the duodenum. There are few scattered colonic diverticula withou t adjacent from trace stranding to suggest diverticulitis. Appendix is normal. No bowel obstruction. Bladder is normal. Mild prostatomegaly. Bilateral fat-containing inguinal hernias. No free intraperit sifuentes gas or fluid. No pathologically enlarged abdominal or pelvic lymphadenopathy. Severe thoracolum bar spondylosis with anterior fusion and laminectomies at L2-L4, partial laminectomy at L1 and anteri or fusion at T8-T9. There are bridging osteophytes at multiple levels in the spine, consistent with d iffuse idiopathic skeletal hyperostosis (DISH). IMPRESSION: 1. Recurrent acute interstitial pancreatitis. 2. 2.6 x 1.7 cm lenticular complex fluid collection along the anteroinferior margin of the pancreatic body which could represent an acute peripancreatic fluid collection, small amount of hemorrhage or m ore chronic pseudocyst related to earlier pancreatitis. 3. Bilateral nonobstructing nephrolithiasis. Reviewed, dictated and finalized at location A. IMPRESSION: 1. Recurrent acute interstitial pancreatitis. 2. 2.6 x 1.7 cm lenticular complex fluid collection along the anteroinferior ma rgin of the pancreatic body which could represent an acute peripancreatic fluid collection, small amount of hemorrhage or more chronic pseudocyst related to e arlier pancreatitis. 3. Bilateral nonobstructing nephrolithiasis.
[2020-03-09 20:02] VITALS: BP 189/101; PULSE 78; RESP 18; TEMP 36.2; O2SAT 99
--- NOTE | 2020-03-09 20:35 | ECG_ITS ---
Measurements Intervals [place] Rate: 74 P: [place]: 0 QRS: -27 QRSD: 105 T: 84 QT: 413 QTc: 461 Interpretive Statements ATRIAL FIBRILLATION BORDERLINE ST-T WAVE ABNORMALITY- HIGH LATERAL LEADS BASELINE ARTIFACT- II, III, AVR, AVL, AVF ABNORMAL ECG Electronically Signed On 03-10-2020 8:10:11 CDT by Charles Nichols D.O.
[2020-03-09] MEDS: MORPHINE SULFATE 4 MG/ML INJ IV PUSH ×2 (20:39→22:42)
[2020-03-09] MEDS: ONDANSETRON INJ 4 MG/2 ML VIAL IV PUSH (20:40)
[2020-03-09 20:45] LABS: Hematocrit 46.1 % (42.0-52.0); Hemoglobin 15.6 g/dL (14.0-18.0); Mean Corpuscular HGB Conc 33.8 g/dl (32-36); Mean Corpuscular Hemoglobin 30.5 pg (26-34); Mean Platelet Volume 10.8 fl (7.4-10.4); Platelet Count Result 291 k/mm3 (150-375); Red Blood Count 5.12 M/mm3 (4.6-6.20); Red Cell Distribution Width 13.7 % (11.5-14.5); White Blood Count 21.2 K/mm3 (4.5-10.0)
[2020-03-09 20:54] LABS: INR 1.2; Prothrombin Time 14.8 Seconds (11.1-14.7)
[2020-03-09 20:55] LABS: Partial Thromboplastin Time 32.3 SECONDS (22.3-36.8)
[2020-03-09 20:59] LABS: Alanine Aminotransferase 14 U/L (4-50); Albumin Level 4.9 g/dL (3.5-5.1); Alkaline Phosphatase 116 U/L (38-126); Anion Gap 15 mmol/L (8-16); Aspartate Amino Transferase 28 U/L (17-59); Bilirubin,Total 0.7 mg/dL (0.2-1.3); Blood Urea Nitrogen 19 mg/dL (9-20); Calcium 10.3 mg/dL (8.4-10.2); Carbon Dioxide 22 mmol/L (22-30); Chloride 109 mmol/L (98-107); Estimated CRCL calculation 55 ml/min; Estimated Glomerular Filt Rate 54; Glucose 186 mg/dL (75-110); Potassium 3.8 mmol/L (3.4-5.0); Sodium 146 mmol/L (137-145)
[2020-03-09 21:01] LABS: Band Neutrophils Percent 3 % (0-6); Eosinophils Absolute Manual 0.21 K/mm3 (0.02-0.5); Eosinophils Percent Manual 1 % (0-4); Lymphocytes Absolute Manual 1.06 K/mm3 (1.1-4.5); Monocytes Absolute Manual 1.06 K/mm3 (0.1-0.90); Monocytes Percent Manual 5 % (3-9); Neutrophils Absolute Manual 18.86 K/mm3 (1.3-6.7); Neutrophils Percent Manual 86 % (46-73); Total Cells Counted 100
[2020-03-09 21:02] LABS: Platelet Estimate Adequate (Adequate)
[2020-03-09 21:30] LABS: Lipase > 40000 U/L (23-300)
[2020-03-09 21:47] VITALS: BP 161/88; PULSE 78; RESP 17; O2SAT 96
--- NOTE | 2020-03-09 21:51 | ED.ABDPAIN ---
HPI - Abdominal Pain General Chief Complaint: Abdominal Pain Stated Complaint: abd pain Time Seen by Provider: 03/09/20 20:27 History of Present Illness HPI narrative: Patient is a 75-year-old male who presents ER with sudden onset epigastric pain that radiates to the entirety of his belly. Began around 5:30 PM. Similar to when he had pancreatitis in the past. At that time he had his gallbladder removed. Denies any other issues leading up to this. Multiple episodes of emesis and persistent nausea. No diarrhea or constipation. No known sick contacts. Related Data Home Medications Medication Instructions Recorded Confirmed ascorbic acid (vitamin C) [Vitamin 500 mg PO DAILY 12/18/19 03/10/20 C] cyanocobalamin (vitamin B-12) 1,000 mcg PO DAILY 12/18/19 03/10/20 [Vitamin B-12] omega 0-qmc-meq-fish oil [Fish Oil] 1 cap PO BID 12/18/19 03/10/20 vitamin E 400 unit PO DAILY 12/18/19 03/10/20 lisinopril 20 mg PO BID 01/30/20 03/10/20 metoprolol tartrate 7.5 mg PO DAILY 03/09/20 03/10/20 Allergies Allergy/AdvReac Type Severity Reaction Status Date / Time No Known Allergies Allergy Verified 03/09/20 20:05 Review of Systems Review of Systems: All systems reviewed & are unremarkable except as noted in HPI and below Constitutional: Constitutional: Denies chills, Denies fever(s) and Denies weakness ENT: Denies nasal congestion and Denies sore throat Cardiovascular: Cardiovascular: Denies chest pain and Denies radiating jaw, neck or arm pain Respiratory: Respiratory: Denies cough, Denies dyspnea and Denies wheezing Gastrointestinal: Gastrointestinal: Reports abdominal pain, Denies constipation, Denies diarrhea, Reports nausea and Reports vomiting PMFSH Social History Social History Social History: Smoking status: Never smoker Second hand tobacco smoke exposure: No Alcohol intake: current Drinks per week: 1 Substance use: never Additional living arrangements comments[place] past away about 5 years ago. Gender identity (if verbalized by the patient): Male Spiritual care concerns: No Exam Narrative: Exam Narrative: GENERAL: Uncomfortable-appearing, well-nourished, and in mild distress. HEAD: Normocephalic, atraumatic. ENT: Mucous membranes moist. CHEST: Clear to auscultation. No respiratory distress. HEART: Regular rate and rhythm. Normal peripheral pulses. ABDOMEN: Soft, TTP to epigastrium with guarding, nondistended. EXTREMITIES: Normal range of motion. No edema. SKIN: Warm, dry, no rash. NEURO: Alert and oriented x3. PSYCH: Normal mood and affect. Course Course Emergency Course: Patient informed of diagnosis treatment plan. Admit to hospitalist service. IV fluid ordered as well as pain control. Patient will be n.p.o. Vital Signs Vital signs: Vital Signs Temperature 97.2 F L 03/09/20 20:02 Pulse Rate 78 03/09/20 20:02 Respiratory Rate 18 03/09/20 20:02 Blood Pressure 189/101 H 03/09/20 20:02 Pulse Oximetry 99 03/09/20 20:02 Temperature 97.8 F 03/10/20 00:00 Pulse Rate 71 03/10/20 00:00 Respiratory Rate 16 03/10/20 00:00 Blood Pressure 172/87 H 03/10/20 00:00 Pulse Oximetry 98 03/10/20 00:00 MDM - Abdominal Pain Lab Data Result diagrams: 03/09/20 20:40 03/09/20 20:40 Labs: Lab Results 03/09/20 03/09/20 03/09/20 Range/Units 20:40 20:40 20:40 WBC 21.2 H (4.5-10.0) K/mm3 RBC 5.12 (4.6-6.20) M/mm3 Hgb 15.6 D (14.0-18.0) g/dL Hct 46.1 (42.0-52.0) % MCV 90.0 (80-100) fl MCH 30.5 (26-34) pg MCHC 33.8 (32-36) g/dl RDW 13.7 (11.5-14.5) % Plt Count 291 (150-375) k/mm3 MPV 10.8 H (7.4-10.4) fl Immature Gran % (Auto) Not Reportable Neut % (Auto) Not Reportable Lymph % (Auto) Not Reportable [place] % (Auto) Not Reportabl
[2020-03-09] MEDS: PROMETHAZINE HCL 25 MG/ML AMPUL 12.5 MG IV PUSH (22:42)
[2020-03-09 23:32] VITALS: BP 147/100; PULSE 76; RESP 18; O2SAT 94
[2020-03-09 23:50] VITALS: BMI 30.8
[2020-03-10] VITALS (9 sets, daily range): BP systolic 133–172; BP diastolic 66–94; PULSE 59–71; RESP 16–18; TEMP 36.6–37.3; O2SAT 94–98; BMI 30.8
--- NOTE | 2020-03-10 | ADMGEN ---
This patient, David Nicholson, was admitted to 3 [facility] Surg Room 313-01. Patient/family oriented to hospital policies and general routines including ID bracelet, bed and alarms, visiting hours, pain management, procedures, bathroom and other care routines, personal items, smoking policy, room service/diet, and visiting hours. Valuables list has been completed. Information on how to activate the Rapid Response Team has been discussed. Patient/Family are encouraged to report perceived risks to care and to ask questions if they do not understand what they are told or what they should do.
[2020-03-10] MEDS: SODIUM CHLORIDE 0.9% IV 1,000 ML 150 ML IV CONT ×3 (00:24→13:46)
--- NOTE | 2020-03-10 05:31 | PM.IMHP ---
H&P: HPI History of Present Illness Date/Time: 03/10/20 01:30 Chief complaint: Abdominal pain Narrative: David Nicholson is a 75 year old male With a past medical history of paroxysmal atrial fibrillation, sinus pauses, hypertension and recent hospitalization 12/18/2019 through 12/23/2019 due to acute gallstone pancreatitis with subsequent cholecystectomy who presented back to the ER due to epigastric pain at radiates throughout the entirety of his abdomen. The patient reports that he felt good all day. He went to his son's house and help to son replaced some boards on his deck. He then returned home and ate some spaghetti and grapes as well as a bottle of lemonade when he suddenly developed epigastric pain. The patient reported that the pain was severe in intensity 10/10 with waves of pain. The pain was accompanied by sudden onset of nausea and vomiting with bilious/green emesis. He reports that the pain radiated at through to his back as well. He reports that the pain was similar to when he had his prior episode of gallstone pancreatitis. Interestingly enough the patient has had intermittent burning epigastric pain with colicky nature to his pain on and off ever since he was discharged from the hospital in December. He had not noticed a correlation with food with his prior episodes. He had been taking some etho-pny-qvmtust antacid/Pepcid which he thought was helping his pain. He quit taking the Pepcid 2 days ago. He had not had any pain in the 2 days prior to today symptoms. He denies any chest pain or shortness of breath. He has not been having any cough or congestion. He has normally formed bowel movements each morning. He occasionally does have some hematochezia due to history of hemorrhoids. He has not had any alcohol consumption and only rarely drinks alcohol in small amounts. during his last hospitalization the patient was found to have atrial fibrillation. He was been does charged on anticoagulant with Eliquis. After he was discharged home he had a cardiac event monitor which demonstrated sinus pauses and episodes of paroxysmal atrial fibrillation. The patient was scheduled to have cardiac pacemaker placed March 12, [address] Umana. it sounds as if his anticoagulants are currently on hold. The patient's snath handle assembler is Dr. Vallejo. Review of Systems Review of Systems: Narrative: 12 systems were reviewed with pertinent positives and negatives per HPI. Except as documented in the HPI, all other systems were reviewed and are negative. [facility] Past Medical History Medical History (Updated 03/10/20 @ 06:37 by Georgia Lazo DO) Arthritis Borderline diabetes Coronary artery disease With history of stents. Dyslipidemia Hypertension (Unknown) Hypertriglyceridemia triglyceride 291 November 2019 Nephrolithiasis Obstructive sleep apnea Intolerant to CPAP. Paroxysmal atrial fibrillation (Unknown) Thoracic aortic aneurysm Stable on imaging dated 12/18/2019. Patient is not interested in surgery. Surgical History Surgical History (Updated 03/10/20 @ 06:21 by Georgia Lazo DO) History of cataract extraction History of colonoscopy with polypectomy History of heart artery stent (~07/2006) History of lumbar fusion History of tonsillectomy History of total bilateral knee replacement Hx laparoscopic cholecystectomy 12/22/2019 Family History Family History Mother Breast cancer Father Emphysema lung Daughter Breast cancer Son Valvular heart disease his son is scheduled to have valve repair February 2020 Social History Social History (Reviewed 01/05/20 @ 09:15 by Kristina Vela, [facility]) Social History: Smoking status: Never smoker Second hand tobacco smoke exposure: No Alcohol intake: current Drinks per week: 1 Substance use: never Additional living arrangements comments: [place] . past away about 5 years ago. Gender mercedes
[2020-03-10 06:31] LABS: Hematocrit 41.1 % (42.0-52.0); Hemoglobin 13.6 g/dL (14.0-18.0); Mean Corpuscular HGB Conc 33.1 g/dl (32-36); Mean Corpuscular Hemoglobin 29.9 pg (26-34); Mean Corpuscular Volume 90.3 fl (80-100); Mean Platelet Volume 10.8 fl (7.4-10.4); Platelet Count Result 248 k/mm3 (150-375); Red Blood Count 4.55 M/mm3 (4.6-6.20); Red Cell Distribution Width 13.7 % (11.5-14.5); White Blood Count 10.5 K/mm3 (4.5-10.0)
[2020-03-10 06:59] LABS: Alanine Aminotransferase 8 U/L (4-50); Albumin Level 3.9 g/dL (3.5-5.1); Alkaline Phosphatase 77 U/L (38-126); Anion Gap 9 mmol/L (8-16); Aspartate Amino Transferase 20 U/L (17-59); Bilirubin,Total 0.5 mg/dL (0.2-1.3); Blood Urea Nitrogen 20 mg/dL (9-20); Calcium 8.8 mg/dL (8.4-10.2); Carbon Dioxide 25 mmol/L (22-30); Chloride 111 mmol/L (98-107); Estimated CRCL calculation 60 ml/min; Estimated Glomerular Filt Rate 59; Glucose 112 mg/dL (75-110); Potassium 4.3 mmol/L (3.4-5.0); Sodium 145 mmol/L (137-145)
[2020-03-10 08:23] LABS: Lipase 7488 U/L (23-300)
[2020-03-10] MEDS: ONDANSETRON INJ 4 MG/2 ML VIAL IV PUSH ×2 (10:21→20:45)
--- NOTE | 2020-03-10 10:35 | WPDGICN ---
Assessment and Plan Assessment and plan (1) Acute pancreatitis: Code(s): K85.90 - Acute pancreatitis without necrosis or infection, unspecified Status: Acute Assessment and Plan: denies alcohol use, this is his second episode of pancreatitis npo status for now, continue with fluids, pain control and medical management (2) Abdominal pain: Code(s): R10.9 - Unspecified abdominal pain Status: Acute Assessment and Plan: improved (3) Nausea & vomiting: Code(s): R11.2 - Nausea with vomiting, unspecified Status: Acute Assessment and Plan: no more vomiting, antiemetics prn (4) AV block: Code(s): I44.30 - Unspecified atrioventricular block Status: Acute Assessment and Plan: he will follow up with cardiology, at some point will need pacemaker (5) History of colon polyps: Code(s): Z86.010 - Personal history of colonic polyps Status: Acute Assessment and Plan: he is established with Dr Fang, he says that last colonoscopy about 10 years ago. GI Consult Note Consult date/time: 03/10/20 10:35 Reason for consult: acute pancreatitis HPI: David Nicholson is a 75 year old male who had GS pancreatitis 12/2019 for which underwent lap josé, had normal IOC. 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 Yesterday after eating he had severe pain in epigastric area with radiation to sides along with intractable nausea and vomiting. He came to ER, blood work consistent with pancreatitis (lipase >4000) with normal liver enzymes. CT scan showed recurrent acute interstitial pancreatitis, also 2.6 x 1.7 cm lenticular complex fluid collection along the anteroinferior margin of the pancreatic body which could represent an acute peripancreatic fluid collection or pseudocyst. His WBC was 21k but today down 10 Today pain is better, still nauseous but no vomiting. He is comfortable. He is a patient of Dr Fang who has done his colonoscopy about 10 years ago and also saw him during recent hospitalization. Review of Systems Constitutional: Constitutional: Denies headache(s) and Denies weakness Eyes: Eyes: Denies blurry vision ENT: Reports Normal hearing present, Denies headache(s) and Denies neck pain Cardiovascular: Cardiovascular: Denies chest pain and Denies dyspnea Respiratory: Respiratory: Denies dyspnea Gastrointestinal: Gastrointestinal: Reports abdominal pain, Reports nausea and Reports vomiting Genitourinary: Genitourinary: Denies dysuria Musculoskeletal: Musculoskeletal: Denies neck pain Integumentary/Breasts: Skin/Breast: Denies dry skin Neurologic: Reports Normal hearing present, Denies headache(s) and Denies weakness Psychiatric: Psychiatric: Denies anxiety Endocrine: Endocrine: Denies change in body appearance Hematologic/Lymphatic: Hematologic/Lymphatic: Denies easy bleeding Allergic/Immunologic: Allergic/Immunologic: Denies urticaria PMFSH Surgical History Surgical History (Updated 03/10/20 @ 06:21 by Georgia Lazo DO) History of cataract extraction History of colonoscopy with polypectomy History of heart artery stent (~07/2006) History of lumbar fusion History of tonsillectomy History of total bilateral knee replacement Hx laparoscopic cholecystectomy 12/22/2019 Family History Family History Mother Breast cancer Father Emphysema lung Daughter Breast cancer Son Valvular heart disease his son is scheduled to have valve repair February 2020 Social History Social History Social History: Smoking status: Never smoker Second hand tobacco smoke exposure: No Alcohol intake: current Drinks per week: 1 Substance use: never Additional living arrangements comments: [place] . past away about 5 years ago. Ge
--- NOTE | 2020-03-10 11:21 | PM.IMPN ---
Progress Note: A&P Assessment and Plan (1) Acute pancreatitis: Qualifiers: Pancreatitis type: unspecified pancreatitis type Acute pancreatitis complication: no infection or necrosis Qualified Code(s): K85.90 - Acute pancreatitis without necrosis or infection, unspecified Code(s): K85.90 - Acute pancreatitis without necrosis or infection, unspecified Status: Acute Assessment and Plan: CT showed recurrent acute interstitial pancreatitis. Patient had recent episode of acute pancreatitis in December and underwent cholecystectomy. Given his recent cholecystectomy and history of gallstones, there is a possibility of a retained gallstone. However his intraoperative cholangiogram did not demonstrate any gallstones and his LFTs are within normal limits. Lipase was >80099 at presentation and has declined today to 7488. NPO diet and IV fluids. Gastroenterology has been consulted and recommendations are appreciated Analgesics and antiemetics as needed Trend lipase and additional labs (2) Sinus pause: Code(s): I45.5 - Other specified heart block Status: Resolved Assessment and Plan: Heart rate is controlled and patient has been in normal sinus rhythm on review of monitor with 2 second pause occurring early a.m. on 03/10/2020. The patient had been scheduled for pacemaker placement 03/12/2020. this will likely need to be rescheduled, but will monitor how his pancreatitis progresses and discuss with personnel placement specialist as appropriate Continue to monitor telemetry (3) Essential hypertension: Code(s): I10 - Essential (primary) hypertension Status: Acute Assessment and Plan: blood pressures elevated at presentation. Blood pressures reviewed and are stable today. Suspect elevation was secondary to pain. Home p.o. antihypertensives have been on hold as patient is NPO. While NPO, continue IV hydralazine Q 4 for systolic blood pressure >160. Plan to resume p.o. antihypertensives when clinically appropriate (4) Paroxysmal atrial fibrillation: Onset Date: Unknown Code(s): I48.0 - Paroxysmal atrial fibrillation Status: Chronic Assessment and Plan: Rate is controlled at this time and he was in sinus rhythm. Eliquis has been held given his planned pacemaker placement on 03/12/2020. If this procedure is going to be rescheduled, will plan to resume Eliquis when patient is no longer NPO. At this time, continue to hold. Low-dose metoprolol has been held. Resume when no longer NPO. Subjective Date/time seen: 03/10/20 11:21 Interval history: Date of service: 03/10/2020 Patient is a 75-year-old male with a history CAD, HTN, MEGAN, and AFib who is here with pancreatitis. He is complaining of nausea at this time but states he has not vomited since yesterday evening. He has lower abdominal cramping which he rates as 2/10. He has not had any epigastric pain today. He denies back pain. He denies fever, chills, or sweats. He has not had any headaches. He had a soft bowel movement yesterday morning prior to coming to the hospital. He tells me he is scheduled to have a pacemaker placed on 03/12/[address] Umana because he had been having sinus pauses. He had been asymptomatic with these. He remains asymptomatic at this time. He denies palpitations, rapid heart rate, or irregular heart rate. He denies chest pain or shortness of breath. He denies dizziness or lightheadedness. He has no additional concerns at this time. Review of Systems Review of Systems: Narrative: A 12 point review of systems was reviewed with pertinent positives and negatives as per HPI. Exam Narrative: Exam Narrative: Mr. stephens is a well-nourished 75-year-old male who is lying supine in bed. He appears comfortable and is in no acute respiratory distress. HR 64, BP 135/66, R 16, T 98.0?, 95% on room air Neuro: awake, alert and oriented x4, speech clear, no
[2020-03-10] MEDS: SODIUM CHLORIDE 0.9% IV 1,000 ML 100 ML IV CONT (20:55)
[2020-03-11] VITALS (9 sets, daily range): BP systolic 160–161; BP diastolic 87–89; PULSE 20–78; RESP 16–20; TEMP 36.9–37.5; O2SAT 79–96
[2020-03-11] MEDS: SODIUM CHLORIDE 0.9% IV 1,000 ML 100 ML IV CONT ×2 (05:52→15:26)
[2020-03-11 06:33] LABS: Basophils Percent Auto 0.4 % (0.2-1.2); Eosinophils Absolute Auto 0.4 K/mm3 (0-0.3); Eosinophils Percent Auto 3.6 % (0-4.4); Hematocrit 38.7 % (42.0-52.0); Hemoglobin 12.6 g/dL (14.0-18.0); Immature Granulocyte Absolute 0.04 K/mm3 (0.00-0.031); Immature Granulocyte Percent A 0.4 % (0-0.5); Lymphocytes Absolute Auto 0.88 K/mm3 (0.9-3.2); Lymphocytes Percent Auto 8.1 % (18.3-44.2); Mean Corpuscular HGB Conc 32.6 g/dl (32-36); Mean Corpuscular Hemoglobin 30.2 pg (26-34); Mean Corpuscular Volume 92.8 fl (80-100); Mean Platelet Volume 11.1 fl (7.4-10.4); Monocytes Absolute Auto 0.6 K/mm3 (0.1-0.6); Monocytes Percent Auto 5.7 % (2.6-8.5); Neutrophils Absolute Auto 8.9 K/mm3 (1.3-6.7); Neutrophils Percent Auto 81.8 % (45.5-73.1); Platelet Count Result 194 k/mm3 (150-375); Red Blood Count 4.17 M/mm3 (4.6-6.20); Red Cell Distribution Width 13.9 % (11.5-14.5); White Blood Count 10.9 K/mm3 (4.5-10.0)
[2020-03-11 07:17] LABS: Albumin Level 3.5 g/dL (3.5-5.1); Alkaline Phosphatase 72 U/L (38-126); Anion Gap 7 mmol/L (8-16); Aspartate Amino Transferase 18 U/L (17-59); Bilirubin,Total 0.6 mg/dL (0.2-1.3); Blood Urea Nitrogen 20 mg/dL (9-20); Calcium 8.4 mg/dL (8.4-10.2); Carbon Dioxide 24 mmol/L (22-30); Chloride 113 mmol/L (98-107); Estimated CRCL calculation 60 ml/min; Estimated Glomerular Filt Rate 59; Glucose 90 mg/dL (75-110); Lipase 809 U/L (23-300); Potassium 3.8 mmol/L (3.4-5.0); Sodium 144 mmol/L (137-145)
[2020-03-11 07:47] LABS: Alanine Aminotransferase < 6 U/L (4-50)
--- NOTE | 2020-03-11 13:22 | WPDGIPROGNO ---
Progress Note: A&P Assessment and Plan (1) Acute pancreatitis: Qualifiers: Acute pancreatitis complication: no infection or necrosis Pancreatitis type: unspecified pancreatitis type Qualified Code(s): K85.90 - Acute pancreatitis without necrosis or infection, unspecified Code(s): K85.90 - Acute pancreatitis without necrosis or infection, unspecified Status: Acute Assessment and Plan: resolving, will start full liquid diet today feeling better, also noted small complex fluid collection in pancreas. Probably will need to reassess with imaging in few more months Dr Fang will resume care tomorrow. (2) Nausea & vomiting: Code(s): R11.2 - Nausea with vomiting, unspecified Status: Acute Assessment and Plan: no more vomiting and less nausa, ok to start liquid diet (3) Abdominal pain: Code(s): R10.9 - Unspecified abdominal pain Status: Acute Assessment and Plan: improved (4) Paroxysmal atrial fibrillation: Onset Date: Unknown Code(s): I48.0 - Paroxysmal atrial fibrillation Status: Chronic Assessment and Plan: he was supposed to have pacemaker tomorrow, will need to reschedule Subjective Date/time seen: 03/11/20 13:22 Interval history: he is doing better, less pain and nausea, did not have to ask for more meds Review of Systems Review of Systems: All systems reviewed & are unremarkable except as noted in HPI and below Exam Const: General: comfortable and no acute distress HENMT: General nose exam: Normal nares present Eyes: General: appearance normal, both eyes and all related structures Neck: Neck: no JVD Resp: Auscultation: clear to auscultation bilaterally Cardio: Rate: regular rate Rhythm: regular rhythm GI: Inspection: non-distended GI Palp: Yes Soft to palpation Auscultation: normal bowel sounds Other: less tender today, no rebound Skin: General skin exam: normal color Neuro: General: gait normal Speech: normal speech Extrem: General: normal to inspection Psych: Mental Status: mental status grossly normal Objective Data Vital Signs Vital Signs: Vital Signs - 24 hr 03/10/20 14:00 03/10/20 16:00 03/10/20 20:00 Temperature 98.4 F Pulse Rate 63 66 68 Respiratory Rate 16 16 Blood Pressure 133/70 Pulse Oximetry 94 94 03/10/20 22:00 03/11/20 00:00 03/11/20 04:00 Temperature 99.2 F Pulse Rate 70 62 70 Respiratory Rate 16 Blood Pressure 140/84 Pulse Oximetry 96 03/11/20 06:00 03/11/20 09:29 03/11/20 12:00 Temperature 99 F Pulse Rate 78 68 78 Respiratory Rate 20 Blood Pressure 160/88 H Pulse Oximetry 96 Intake/Output Intake/Output: Intake & Output 03/08/20 03/09/20 03/10/20 03/11/20 23:59 23:59 23:59 23:59 Intake Total 3100 1000 Output Total 1100 950 Balance 2000 50 Meds/Results Medications: Active Medications Generic Name Dose Route Start Last Admin Trade Name Freq PRN Reason Stop Dose Admin Hydralazine HCl 10 mg 03/10/20 05:35 Apresoline Hcl Inj IV PUSH Q4H PRN SBP greater than 160 Sodium Chloride 1,000 mls @ 100 mls/hr 03/09/20 22:20 03/11/20 05:52 Normal Saline Iv IV CONT 100 mls/hr .Q10H CECE Administration Morphine Sulfate 4 mg 03/09/20 22:17 Morphine Sulfate Inj IV PUSH Q2H PRN Pain Rated 7-10 Ondansetron HCl 4 mg 03/09/20 22:17 03/10/20 20:45 Zofran Inj IV PUSH 4 mg Q4H PRN Administration Nausea Radiology Results: ITS Impressions Abdomen/Pelvis CT 03/09/20 21:42 IMPRESSION: 1. Recurrent acute interstitial pancreatitis. 2. 2.6 x 1.7 cm lenticular complex fluid collection along the anteroinferior margin of the pancreatic body which could represent an acute peripancreatic fluid collection, small amount of hemorrhage or more chronic pseudocyst related to earlier pancreatitis. 3. Bilateral nonobstructing nephrolithiasis. Labs Labs: Laboratory Results
--- NOTE | 2020-03-11 13:54 | PM.IMPN ---
Progress Note: A&P Assessment and Plan (1) Acute pancreatitis: Qualifiers: Acute pancreatitis complication: no infection or necrosis Pancreatitis type: unspecified pancreatitis type Qualified Code(s): K85.90 - Acute pancreatitis without necrosis or infection, unspecified Code(s): K85.90 - Acute pancreatitis without necrosis or infection, unspecified Status: Acute Assessment and Plan: CT showed recurrent acute interstitial pancreatitis. Patient had recent episode of acute pancreatitis in December and underwent cholecystectomy. Given his recent cholecystectomy and history of gallstones, there is a possibility of a retained gallstone. However his intraoperative cholangiogram did not demonstrate any gallstones and his LFTs are within normal limits. Lipase was >04111 at presentation and has declined today to 809. Advance to full liquid diet IV fluids Gastroenterology has been consulted and recommendations are appreciated Analgesics and antiemetics as needed Trend lipase and additional labs (2) Sinus pause: Code(s): I45.5 - Other specified heart block Status: Resolved Assessment and Plan: Heart rate is controlled and patient has been in normal sinus rhythm with episodes of atrial fibrillation on review of monitor with 2 second pause occurring early a.m. on 03/10/2020. The patient had been scheduled for pacemaker placement 03/12/2020. I spoke with the on-call identification and records commander who recommended discussion with Dr. Umana on Thursday to determine if this may still be done or should be rescheduled. Will make NPO at midnight in the event he may proceed with procedure, although we discussed that he will likely need to reschedule. Continue to monitor telemetry (3) Essential hypertension: Code(s): I10 - Essential (primary) hypertension Status: Acute Assessment and Plan: Blood pressures elevated at presentation, likely secondary to pain. Blood pressure Reviewed this morning and again elevated likely secondary to holding of antihypertensives while NPO. Resume p.o. amlodipine Will continue IV hydralazine q4 for systolic blood pressure >160 in the event patient is unable to tolerate p.o. intake (4) Paroxysmal atrial fibrillation: Onset Date: Unknown Code(s): I48.0 - Paroxysmal atrial fibrillation Status: Chronic Assessment and Plan: Rate is controlled at this time. Eliquis has been held given his planned pacemaker placement on 03/12/2020. At this time, continue to hold. Plan to resume tomorrow if pacemaker placement procedure is rescheduled. Low-dose metoprolol has been held. Resume when no longer NPO. Subjective Date/time seen: 03/11/20 13:54 Interval history: Date of service: 03/10/2020 Patient is a 75-year-old male with a history CAD, HTN, MEGAN, and AFib who is here with pancreatitis. he feels much better today. He has not had any episodes of nausea or vomiting. He denies epigastric pain or back pain. He does have vague, diffuse, crampy abdominal discomfort that comes and goes. he denies fever, chills, sweats, or body aches. He has been passing gas but he has not had a bowel movement. He denies shortness of breath or chest pain. He states that every now and again, he can feel aflutter in his chest, but he has not felt that in several days. He again questions whether he can have his pacemaker placed tomorrow which he was scheduled for due to sinus pauses. He has been asymptomatic from a cardiac standpoint and does not believe he has had any episodes Of arrhythmia or pauses. He denies dizziness or lightheadedness. he has been urinating consistently and denies dysuria or hematuria. He is starting to get a bit of an appetite and is requesting to begin advancing his diet. Review of Systems Review of Systems: Narrative: A 12 point review of systems was reviewed with pertinent positives and negatives as per HPI.
[2020-03-11] MEDS: amLODIPine BESYLATE 2.5 MG TABLET PO (15:47)
[2020-03-12] VITALS: PULSE 74
[2020-03-12] MEDS: SODIUM CHLORIDE 0.9% IV 1,000 ML 100 ML IV CONT (00:51)
[2020-03-12 04:00] VITALS: PULSE 52
[2020-03-12 06:00] VITALS: BP 127/73; PULSE 67; RESP 20; TEMP 37.1; O2SAT 97
[2020-03-12 06:47] LABS: Hematocrit 36.2 % (42.0-52.0); Hemoglobin 12.1 g/dL (14.0-18.0); Mean Corpuscular HGB Conc 33.4 g/dl (32-36); Mean Corpuscular Hemoglobin 30.5 pg (26-34); Mean Corpuscular Volume 91.2 fl (80-100); Platelet Count Result 191 k/mm3 (150-375); Red Blood Count 3.97 M/mm3 (4.6-6.20); Red Cell Distribution Width 13.7 % (11.5-14.5); White Blood Count 11.8 K/mm3 (4.5-10.0)
--- NOTE | 2020-03-12 07:03 | WPDGIPROGNO ---
Progress Note: A&P Assessment and Plan (1) Acute pancreatitis: Qualifiers: Acute pancreatitis complication: no infection or necrosis Pancreatitis type: unspecified pancreatitis type Qualified Code(s): K85.90 - Acute pancreatitis without necrosis or infection, unspecified Code(s): K85.90 - Acute pancreatitis without necrosis or infection, unspecified Status: Acute Assessment and Plan: Pancreatitis appears to be resolving. Lipase yesterday markedly improved from admission. Suspect he may have passed a retained gallstone after recent cholecystectomy. Plan is to advance diet To low-fat diet if pacemaker not plan. Hopefully pacemaker can still be accomplished. Follow-up CT scan is suggested in several months period to reassess fluid collection adjacent to the pancreas. (2) A-fib: Code(s): I48.91 - Unspecified atrial fibrillation Status: Acute (3) Coronary artery disease: Code(s): I25.10 - Atherosclerotic heart disease of [place] coronary artery without angina pectoris Status: Acute (4) History of colon polyps: Code(s): Z86.010 - Personal history of colonic polyps Status: Acute Assessment and Plan: Patient has a history of colon polyps as well as a family history of colon polyps. Plan is for surveillance colonoscopy. This will be deferred until a time when anticoagulation can be held. Perhaps in a month or so. Subjective Date/time seen: 03/12/20 07:03 Patient feeling better today. Has been NPO since midnight. Denies any additional nausea vomiting. He states pain is resolved. Review of Systems Review of Systems: All systems reviewed & are unremarkable except as noted in HPI and below Exam Narrative: Exam Narrative: Physical exam reveals patient to be alert. Vital signs are stable. HEENT exam unremarkable he is anicteric. Lungs are clear. Heart without murmur. Abdomen bowel sounds are present soft nontender at the present time. No masses noted. Objective Data Vital Signs Vital Signs: Vital Signs - 24 hr 03/11/20 09:29 03/11/20 12:00 03/11/20 14:00 Temperature 98.4 F Pulse Rate 68 78 77 Respiratory Rate 16 Blood Pressure 161/89 H Pulse Oximetry 95 03/11/20 16:00 03/11/20 20:00 03/11/20 22:00 Temperature 99.5 F Pulse Rate 75 77 20 L Respiratory Rate 16 20 Blood Pressure 160/87 H Pulse Oximetry 95 79 L 03/12/20 00:00 03/12/20 04:00 03/12/20 06:00 Temperature 98.7 F Pulse Rate 74 52 L 67 Respiratory Rate 20 Blood Pressure 127/73 Pulse Oximetry 97 Intake/Output Intake/Output: Intake & Output 03/09/20 03/10/20 03/11/20 03/12/20 23:59 23:59 23:59 23:59 Intake Total 3100 2760 1500 Output Total 1100 1525 850 Balance 2000 1235 650 Meds/Results Medications: Active Medications Generic Name Dose Route Start Last Admin Trade Name Freq PRN Reason Stop Dose Admin Amlodipine Besylate 2.5 mg 03/11/20 14:05 03/11/20 15:47 Norvasc PO 2.5 mg QAM CECE Administration Hydralazine HCl 10 mg 03/10/20 05:35 Apresoline Hcl Inj IV PUSH Q4H PRN SBP greater than 160 Sodium Chloride 1,000 mls @ 100 mls/hr 03/09/20 22:20 03/12/20 00:51 Normal Saline Iv IV CONT 100 mls/hr .Q10H CECE Administration Morphine Sulfate 4 mg 03/09/20 22:17 Morphine Sulfate Inj IV PUSH Q2H PRN Pain Rated 7-10 Ondansetron HCl 4 mg 03/09/20 22:17 03/10/20 20:45 Zofran Inj IV PUSH 4 mg Q4H PRN Administration Nausea Radiology Results: ITS Impressions Abdomen/Pelvis CT 03/09/20 21:42 IMPRESSION: 1. Recurrent acute interstitial pancreatitis. 2. 2.6 x 1.7 cm lenticular complex fluid collection along the anteroinferior margin of the pancreatic body which could represent an acute peripancreatic fluid collection, small amount of hemorrhage or more chronic pseudocyst related to earlier pancreatitis. 3. Bilateral nonobstructing nephrolithiasis.
[2020-03-12 07:12] LABS: Alanine Aminotransferase 6 U/L (4-50); Albumin Level 3.3 g/dL (3.5-5.1); Alkaline Phosphatase 61 U/L (38-126); Anion Gap 7 mmol/L (8-16); Aspartate Amino Transferase 16 U/L (17-59); Bilirubin,Total 0.4 mg/dL (0.2-1.3); Blood Urea Nitrogen 14 mg/dL (9-20); Calcium 8.1 mg/dL (8.4-10.2); Carbon Dioxide 24 mmol/L (22-30); Chloride 110 mmol/L (98-107); Estimated CRCL calculation 78 ml/min; Estimated Glomerular Filt Rate > 60; Glucose 113 mg/dL (75-110); Lipase 251 U/L (23-300); Potassium 3.6 mmol/L (3.4-5.0); Sodium 141 mmol/L (137-145)
[2020-03-12 08:00] VITALS: PULSE 57
[2020-03-12] MEDS: CLOPIDOGREL BISULFATE 75 MG TABLET PO (10:49)
[2020-03-12] MEDS: lisinopriL 20 MG TABLET PO (10:49)
[2020-03-12] MEDS: APIXABAN 5 MG TABLET PO (10:49)
[2020-03-12] MEDS: amLODIPine BESYLATE 2.5 MG TABLET PO (10:49)
[2020-03-12] MEDS: TAMSULOSIN HCL 0.4 MG CAPSULE PO (10:49)
[2020-03-12] MEDS: ATORVASTATIN 20 MG TABLET PO (10:49)
--- NOTE | 2020-03-12 11:38 | PM.DS ---
DS: Admitting Diagnosis Admitting Diagnosis Admitting Diagnosis: Pancreatitis DS: Discharge Diagnosis Discharge Diagnosis (1) Acute pancreatitis: Qualifiers: Acute pancreatitis complication: no infection or necrosis Pancreatitis type: unspecified pancreatitis type Qualified Code(s): K85.90 - Acute pancreatitis without necrosis or infection, unspecified Code(s): K85.90 - Acute pancreatitis without necrosis or infection, unspecified Status: Acute Assessment and Plan: CT showed recurrent acute interstitial pancreatitis. Patient had recent episode of acute pancreatitis in December and underwent cholecystectomy. Possibly secondary to retained gallstone given recent cholecystectomy. LFTs were within normal limits. Lipase was >92067 at presentation and improved to normal limits. Diet was advanced and he was able to tolerate low fat diet. Follow up CT in several months has been recommended by GI to reassess fluid collection adjacent to pancreas. Follow up with Dr. Fang in 1 month. (2) Sinus pause: Code(s): I45.5 - Other specified heart block Status: Resolved Assessment and Plan: Heart rate was controlled with 2 second pause occurring early a.m. on 03/10/2020 on monitor review. The patient had been scheduled for pacemaker placement 03/12/2020 but because he remained an inpatient, he was unable to get the pacemaker on 03/12. He will need to reschedule this appointment. I discussed this with Dr. Umana, his environmental compliance engineer. (3) Essential hypertension: Code(s): I10 - Essential (primary) hypertension Status: Acute Assessment and Plan: Blood pressures elevated at presentation, likely secondary to pain and holding of anithypertensives while NPO. BP improved. PO amlodipine was resumed. (4) Paroxysmal atrial fibrillation: Onset Date: Unknown Code(s): I48.0 - Paroxysmal atrial fibrillation Status: Chronic Assessment and Plan: Rate was controlled. Eliquis had been held given his planned pacemaker placement but was resumed on 03/12 because he will need to reschedule his pacemaker. Continue metoprolol. DS: Summary Hospital Course Reason for hospitalization: Abdominal pain Hospital Course: Date of admission: 03/09/2020 Date of discharge: 03/12/2020 David Nicholson is a 75 year old male with a history of CAD, HTN, MEGAN, paroxysmal atrial fibrillation, and recent hospitalization iin December 2019 for acute pancreatitis with laparoscopic cholecystectomy on 01/11/2020 who presented to the emergency department on 03/09/2020 with complaints of sudden onset of epigastric pain radiating throughout the entire abdomen with nausea and vomiting. At presentation, WBC 21.2, LFTs wnl, and lipase >[address] a/p showing recurrent acute interstitial pancreatitis and fluid collection along pancreatic body which could represent acute peripancreatic fluid collection or pseudocyst. He was admitted to the hospitalist service for further evaluation and treatment and was seen in consultation by gastroenterology. Please see above for further details. He was rehydrated and initially NPO. Pancreatitis improved with lipase returning to normal limits and resolution of abdominal and epigastric pain. Diet was advanced and he tolerated low fat diet. He will follow up with GI and CT will be repeated in several months to assess pancreatic fluid collection. Pacemaker will be rescheduled. Patient was determined to no longer require inpatient care and was comfortable with discharge home. We discussed worrisome signs and symptoms for which to return and he will follow up with PCP, GI, and cardiology as an outpatient. He was discharged in hemodynamically stable condition on 03/12/2020. Status at Discharge Functional status at discharge: independent ambulation Overall status at discharge: patient is progressing back to baseline Time Spent with Patient Time attestation: Total time spent providing and/or coor
== END 2020-03-12 11:57 | disposition home or self-care (01) | DRG 440 ==
LOC: ANHED 22:23 → ANH3MEDSUR 03-10 03:20
PROVIDERS: Admitting Provider Internal Medicine; Emergency Provider Emergency Medicine; PCP Internal Medicine; Visit Provider Physician Assistant
DX: K85.90 Acute pancreatitis without necrosis or infection, unspecified (principal); I48.0 Paroxysmal atrial fibrillation; I10 Essential (primary) hypertension; E11.9 Type 2 diabetes mellitus without complications; I25.10 Atherosclerotic heart disease of native coronary artery without angina pectoris; E78.5 Hyperlipidemia, unspecified; G47.33 Obstructive sleep apnea (adult) (pediatric); I44.30 Unspecified atrioventricular block
CPT/HCPCS: 36415; 74177; 80053; 83690; 85025; 85027; 85610; 85730; 87635; 93005; 96374; 96375; 99285; A9270; C9803; J0131; J2270; J2405; J2550; J7030; Q9967; U0003

== ENCOUNTER 2020-05-12 00:40 | Outpatient (CLI) | payer MEDICARE, SELFPAY ==
[2020-05-12 18:05] LABS: SARS-CoV-2 RNA PCR Negative
== END 2020-05-12 00:41 | disposition home or self-care (01) ==
LOC: ANHCOVIDDT 00:40
PROVIDERS: PCP Internal Medicine; Visit Provider Internal Medicine Gastroenterology
DX: Z01.812 Encounter for preprocedural laboratory examination (principal); Z20.828 Contact with and (suspected) exposure to other viral communicable diseases
CPT/HCPCS: 87635; C9803; U0003

== ENCOUNTER 2020-05-15 00:18 | Day surgery (SDC) | payer MEDICARE, SELFPAY ==
[2020-05-07 12:38] VITALS: BMI 30.2
[2020-05-15 11:22] VITALS: BP 151/97; PULSE 74; RESP 18; TEMP 36.4; O2SAT 98
[2020-05-15] MEDS: LACTATED RINGERS 1,000 ML 150 ML IV CONT (11:40)
--- NOTE | 2020-05-15 12:06 | WPDHPUPDATE1 ---
History and Physical Update Update Date/Time: 05/15/20 12:06 History and Physical has been reviewed, including an updated exam of the patient. There are NO changes in the patient's condition. Risks, benefits, and alternatives have been discussed and questions answered. Patient agrees to proceed with procedure.
--- NOTE | 2020-05-15 12:09 | WPDANESEPPF ---
Anes - Initial Pre Proc Eval Procedure: Operation Date: 05/15/20 13:15 Proposed Procedures p Esophagogastroduodenoscopy & Screening Colonoscopy - Jakub Mcduffie MD Date/Time: 05/15/20 12:09 Surgeon: Jakub Mcduffie MD Pre Op Diagnosis: Other Specified Disease of Pancreas/GERD/Hx Polyps Patient Data Age: 75 Gender: M Height: 6 ft 1 in Weight: 99.4 kg Last Vital Signs Temp 97.5 F L 05/15/20 11:22 Pulse 74 05/15/20 11:22 Resp 18 05/15/20 11:22 BP 151/97 H 05/15/20 11:22 Pulse Ox 98 05/15/20 11:22 Allergies Allergy/AdvReac Type Severity Reaction Status Date / Time No Known Allergies Allergy Verified 05/07/20 12:32 Home Medications Medication Instructions Recorded Confirmed Type ascorbic acid (vitamin C) [Vitamin 500 mg PO DAILY 12/18/19 05/07/20 History C] cyanocobalamin (vitamin B-12) 1,000 mcg PO DAILY 12/18/19 05/07/20 History [Vitamin B-12] omega 6-[id number]-fish oil [Fish Oil] 1 cap PO BID 12/18/19 05/07/20 History vitamin E 400 unit PO DAILY 12/18/19 05/07/20 History amlodipine 2.5 mg tablet 2.5 mg PO DAILY #90 tablet 01/16/20 05/07/20 Rx apixaban 5 mg tablet 5 mg PO BID #60 tablet 01/16/20 05/07/20 Rx atorvastatin 20 mg tablet 20 mg PO DAILY #90 tablet 01/16/20 05/07/20 Rx clopidogrel 75 mg tablet 75 mg PO DAILY #90 tablet 01/16/20 05/07/20 Rx gemfibrozil 600 mg tablet 600 mg PO BID #180 tablet 01/16/20 05/07/20 Rx tamsulosin 0.4 mg capsule 0.4 mg PO DAILY #90 cap 01/16/20 05/07/20 Rx lisinopril 20 mg PO BID 01/30/20 05/07/20 History prochlorperazine maleate 10 mg 10 mg PO Q8H PRN #30 tablet 03/01/20 05/07/20 Rx tablet metoprolol tartrate 6.25 mg PO DAILY 03/09/20 05/07/20 History omeprazole 20 mg capsule,delayed 20 mg PO DAILY #90 cap 04/19/20 05/07/20 Rx release peg 3350-electrolytes 236 240 ml PO Q10M #4000 ml 04/30/20 05/07/20 Rx gram-22.74 gram-6.74 gram-5.86 gram solution Patient hx anesthesia problems: none Family hx anesthesia problems: none PMFSH Past Medical History Medical History (Updated 04/18/20 @ 11:02 by Jakub Mcduffie MD) Abdominal pain Arthritis Borderline diabetes Coronary artery disease With history of stents. Dyslipidemia Fluid collection of pancreas GERD (gastroesophageal reflux disease) Hypertension (Unknown) Hypertriglyceridemia triglyceride 291 November 2019 Nausea & vomiting Nephrolithiasis Obstructive sleep apnea Intolerant to CPAP. Paroxysmal atrial fibrillation (Unknown) Thoracic aortic aneurysm Stable on imaging dated 12/18/2019. Patient is not interested in surgery. Surgical History Surgical History History of cataract extraction History of colonoscopy with polypectomy History of heart artery stent (~07/2006) History of lumbar fusion History of tonsillectomy History of total bilateral knee replacement Hx laparoscopic cholecystectomy 12/22/2019 Family History Family History Mother Breast cancer Father Emphysema lung Daughter Breast cancer Son Valvular heart disease his son is scheduled to have valve repair February 2020 Social History Social History Smoking status: Never smoker Second hand tobacco smoke exposure: No Alcohol intake: current Drinks per week: 1 Alcohol use details: rarely Substance use: never Living arrangements: alone Additional living arrangements comments: In [place]. . past away about 5 years ago. Gender identity (if verbalized by the patient): Male Spiritual care concerns: No Anes - Eval Final PreProcedure Day of Procedure 05/15/20 12:09 Patient weight: overweight Heart: regular rate and rhythm Lungs: clear to auscultation Airway: Mallampati scale class II Neurological: alert and oriented Last oral intake: >/= 8 hours ASA classification: IV Emerg
[2020-05-15] MEDS: BENZOCAINE (*SP) 60 ML SPRAY CAN (HURRICAINE) 1 SPRAY MUCOUS MEM (12:18)
[2020-05-15 13:02] VITALS: BP 88/55; PULSE 69; RESP 15; O2SAT 95
[2020-05-15 13:12] VITALS: BP 82/57; PULSE 69; RESP 19; O2SAT 96
[2020-05-15 13:22] VITALS: BP 100/65; PULSE 69; RESP 12; O2SAT 98
[2020-05-15 13:32] VITALS: BP 115/67; PULSE 69; RESP 12; O2SAT 98
== END 2020-05-15 13:50 | disposition home or self-care (01) ==
PROVIDERS: PCP Internal Medicine; Visit Provider Internal Medicine Gastroenterology
PROC: 0DJ08ZZ Inspection of Upper Intestinal Tract, Via Natural or Artificial Opening Endoscopic (ICD-10-PCS; CPT 43235; principal; 2020-05-15 13:15)
DX: Z12.11 Encounter for screening for malignant neoplasm of colon (principal); D12.2 Benign neoplasm of ascending colon; D12.3 Benign neoplasm of transverse colon; D12.4 Benign neoplasm of descending colon; D12.0 Benign neoplasm of cecum; K57.30 Diverticulosis of large intestine without perforation or abscess without bleeding; K64.8 Other hemorrhoids; R11.0 Nausea; K30 Functional dyspepsia; K29.50 Unspecified chronic gastritis without bleeding; I10 Essential (primary) hypertension; I25.10 Atherosclerotic heart disease of native coronary artery without angina pectoris; E78.5 Hyperlipidemia, unspecified; K21.9 Gastro-esophageal reflux disease without esophagitis; E78.1 Pure hyperglyceridemia; G47.33 Obstructive sleep apnea (adult) (pediatric); I48.0 Paroxysmal atrial fibrillation; I71.2 Thoracic aortic aneurysm, without rupture; R73.03 Prediabetes; Z95.5 Presence of coronary angioplasty implant and graft; Z79.01 Long term (current) use of anticoagulants; Z79.02 Long term (current) use of antithrombotics/antiplatelets; Z98.1 Arthrodesis status
CPT/HCPCS: 45385; 43239; 88305; J2370; J2704; J7120

== ENCOUNTER 2020-06-12 09:22 | Outpatient (CLI) | payer MEDICARE, SELFPAY ==
--- NOTE | ~2020-06-12 | CT_ITS ---
EXAMINATION: CT abdomen pelvis w con EXAM DATE: 06/12/2020 09:45 INDICATION: K86.2 Cyst of pancreas . TECHNIQUE: Spiral CT of the abdomen and pelvis was performed following intravenous injection of 100 m L Omnipaque 350. Axial, coronal and sagittal images were reviewed. The dose-length product (DLP) fo r this examination was 1011.13 mGy-cm. The exposure was tailored according to patient size (auto mA exposure control), and iterative reconstruction (ASIR) was used as additional dose reduction techniqu e. Comparison is made to prior examination from 03/09/2020. FINDINGS: The ascending aorta measures 5.0 cm in diameter, mildly dilated. There are pancreatic calci fications indicating history of chronic pancreatitis. There is a cystic region in the tail of the morales creas measuring 1.3 cm, region was about 9 mm on prior study. Although this has increased slightly in size, its most likely a pseudocyst given chronic pancreatitis, episodes of prior acute pancreatitis. The previously seen acute pancreatic inflammation has resolved. Can't totally exclude small cystic p ancreatic neoplasm. There are cholecystectomy clips. Portal and splenic veins are patent. Kidneys enhance symmetrically . There is no hydronephrosis. Lobular renal contours. Bilateral nonobstructing nephrolithiasis, larg est in the head 10 mm. The prostate is unremarkable. The bladder is unremarkable. There is no retr operitoneal or pelvic lymphadenopathy. There is mild scattered arteriosclerotic disease. Small bila teral inguinal fat-containing hernias. The appendix is normal. The stomach and small bowel are unremarkable. There is mild sigmoid colonic diverticulosis. There is no adjacent inflammatory change to suggest diverticulitis. There is expecte d amount of colonic stool. No free intraperitoneal gas. The heart is normal in size. There are n o pericardial or pleural effusions. The lung bases are unremarkable. There are no osteoblastic or o steolytic lesions identified. IMPRESSION: 1. Chronic pancreatitis, with mild interval increase in size of pancreatic body cystic lesion, still most likely a pseudocyst. Resolution of previously seen acute pancreatic inflammation. Recommend add itional one-year follow-up exam. 2. Bilateral nonobstructing kidney stones. 3. Stable ascending aortic 5.0 cm aneurysm. 4. Mild sigmoid diverticulosis. Reviewed, dictated and finalized at location B. R MECHANIC IMPRESSION: 1. Chronic pancreatitis, with mild interval increase in size of pancreatic bod y cystic lesion, still most likely a pseudocyst. Resolution of previously seen acute pancreatic inflammation. Recommend additional one-year follow-up exam. 2. Bilateral nonobstructing kidney stones. 3. Stable ascending aortic 5.0 cm aneurysm. 4. Mild sigmoid diverticulosis.
[2020-06-12 09:38] LABS: Estimated Glomerular Filt Rate > 60
== END 2020-06-12 09:23 | disposition home or self-care (01) ==
PROVIDERS: PCP Internal Medicine; Visit Provider Internal Medicine Gastroenterology
DX: K86.2 Cyst of pancreas (principal); N20.0 Calculus of kidney; I71.4 Abdominal aortic aneurysm, without rupture; K57.30 Diverticulosis of large intestine without perforation or abscess without bleeding; K86.1 Other chronic pancreatitis; Z90.49 Acquired absence of other specified parts of digestive tract
CPT/HCPCS: 74177; Q9967

== ENCOUNTER 2020-07-21 18:17 | Inpatient (IN) | payer MEDICARE, SELFPAY ==
[2020-07-21] VITALS (24 sets, daily range): BP systolic 166–199; BP diastolic 82–132; PULSE 69–72; RESP 12–21; TEMP 36.1–36.7; O2SAT 96–100; BMI 29.3
--- NOTE | ~2020-07-21 | CT_ITS ---
EXAMINATION: CT abdomen pelvis w con INDICATION: Epigastric abdominal pain TECHNIQUE: Computed tomographic images of the abdomen and pelvis were obtained after the administrati on of 100 cc of Omnipaque 350 intravenous contrast. The dose-length product (DLP) was 996.71 mGy-cm. Automated exposure control and iterative reconstruction technique were employed. COMPARISON: 06/12/2020 FINDINGS: Minimal dependent atelectasis is present in the lung bases there is left ventricular enlarg ement of the heart. Calcified coronary artery atherosclerosis is noted. Pacemaker leads end in the ri ght atrium and right ventricle. The gallbladder is surgically absent. The liver is diffusely low in a ttenuation when compared with the spleen, consistent with hepatic steatosis. The spleen and adrenal g lands are normal. There is fluid and fat stranding surrounding the pancreas with fluid tracking into a anterior pararenal spaces and around the body and antrum of the stomach. The pancreas appears to en lebron throughout. There are punctate calcifications throughout the pancreas. A stable 10 mm cystic le sophie is seen in the body of the pancreas. There is a 3 mm nonobstructing stone of the left kidney. No nobstructing stones of the right kidney measure up to 4 mm. There is a 10 mm stone in the right renal pelvis without significant hydronephrosis. There is calcified atherosclerosis of the aorta and many of the other arteries. The appendix is normal. There is mild retroperitoneal lymphadenopathy, likely reactive. There is no free intraperitoneal gas or evidence of bowel obstruction. There is severe lumb ar spondylosis. There is moderate osteoarthritis of the hips. IMPRESSION: 1. Findings consistent with interstitial edematous pancreatitis with acute peripancreatic fluid colle ction superimposed on chronic pancreatitis. 2. Bilateral nonobstructing nephrolithiasis and 10 mm stone of the right renal pelvis without signifi cant hydronephrosis. Reviewed, dictated and finalized at location A. COMMISSIONER IMPRESSION: 1. Findings consistent with interstitial edematous pancreatitis with acute elizabeth pancreatic fluid collection superimposed on chronic pancreatitis. 2. Bilateral nonobstructing nephrolithiasis and 10 mm stone of the right renal pelvis without significant hydronephrosis.
--- NOTE | ~2020-07-21 | US_ITS ---
EXAMINATION: US right upper quadrant DATE: 07/22/2020 09:37 INDICATION: Recurrent pancreatitis TECHNIQUE: Multiple grayscale and Doppler ultrasound images of the abdomen were obtained. COMPARISON: CT from yesterday FINDINGS: There is a moderate amount of peripancreatic fluid. The visualized portions of the pancreas are unremarkable. The liver is normal with normal echogenicity and echotexture. No surface nodularit y. Normal hepatopetal flow in the main portal vein. The gallbladder is surgically absent. The normal common bile duct measures 6 mm. IMPRESSION: 1. Peripancreatic fluid, consistent with acute pancreatitis demonstrated on the comparison CT. Reviewed, dictated and finalized at location A. [employer]
[2020-07-21 19:01] LABS: Basophils Absolute Auto 0.1 K/mm3 (0.0-0.1); Basophils Percent Auto 0.7 % (0.2-1.2); Eosinophils Absolute Auto 1.6 K/mm3 (0-0.3); Eosinophils Percent Auto 10.5 % (0-4.4); Hematocrit 48.7 % (42.0-52.0); Hemoglobin 16.1 g/dL (14.0-18.0); Immature Granulocyte Percent A 0.7 % (0-0.5); Lymphocytes Absolute Auto 2.45 K/mm3 (0.9-3.2); Lymphocytes Percent Auto 16.1 % (18.3-44.2); Mean Corpuscular HGB Conc 33.1 g/dl (32-36); Mean Corpuscular Hemoglobin 29.4 pg (26-34); Mean Platelet Volume 11.2 fl (7.4-10.4); Monocytes Absolute Auto 1.2 K/mm3 (0.1-0.6); Monocytes Percent Auto 7.6 % (2.6-8.5); Neutrophils Absolute Auto 9.8 K/mm3 (1.3-6.7); Neutrophils Percent Auto 64.4 % (45.5-73.1); Platelet Count Result 353 k/mm3 (150-375); Red Blood Count 5.47 M/mm3 (4.6-6.20); Red Cell Distribution Width 14.5 % (11.5-14.5); White Blood Count 15.2 K/mm3 (4.5-10.0)
[2020-07-21] MEDS: SODIUM CHLORIDE 0.9% IV 1,000 ML 999 ML IV CONT (19:35)
[2020-07-21] MEDS: ONDANSETRON INJ 4 MG/2 ML VIAL IV PUSH (19:36)
[2020-07-21] MEDS: HYDROmorphone HCL INJ (*CRX) 1 MG/ML SYR IV PUSH (19:36)
[2020-07-21 19:45] LABS: Alanine Aminotransferase 28 U/L (4-50); Albumin Level 4.4 g/dL (3.5-5.1); Alkaline Phosphatase 165 U/L (38-126); Anion Gap 10 mmol/L (8-16); Aspartate Amino Transferase 36 U/L (17-59); Bilirubin,Total 0.6 mg/dL (0.2-1.3); Blood Urea Nitrogen 20 mg/dL (9-20); Calcium 9.4 mg/dL (8.4-10.2); Carbon Dioxide 24 mmol/L (22-30); Chloride 108 mmol/L (98-107); Estimated CRCL calculation 63 ml/min; Estimated Glomerular Filt Rate > 60; Glucose 135 mg/dL (75-110); Potassium 3.7 mmol/L (3.4-5.0); Sodium 142 mmol/L (137-145)
--- NOTE | 2020-07-21 19:53 | PC.NURSE ---
Patient placed on 2L via NC since his oxygen saturation decreased to 83% on RA after receiving pain medication.
--- NOTE | 2020-07-21 19:57 | PC.NURSE ---
Patient being taken to CT.
[2020-07-21 20:14] LABS: Lipase > 40000 U/L (23-300)
--- NOTE | 2020-07-21 20:56 | ED.GENADULT ---
HPI - General Adult General Chief complaint: Nausea/Vomiting/Diarrhea Stated complaint: ?PANCREATITIS N/V Time Seen by Provider: 07/21/20 19:11 History of Present Illness HPI narrative: Patient 75-year-old gentleman who presents emerged part with chief complaint of epigastric discomfort nausea and vomiting. Patient reports he has history of pancreatitis states that he went over to his son's house and ate some spaghetti and states that he started having epigastric pain. The patient reports this feels similar to when he had pancreatitis before in the past and is actually had previous episodes that were triggered by eating the same food patient denies fever denies chills Related Data Home Medications Medication Instructions Recorded Confirmed ascorbic acid (vitamin C) [Vitamin 500 mg PO DAILY 12/18/19 05/07/20 C] cyanocobalamin (vitamin B-12) 1,000 mcg PO DAILY 12/18/19 05/07/20 [Vitamin B-12] omega [id number] oil [Fish Oil] 1 cap PO BID 12/18/19 05/07/20 vitamin E 400 unit PO DAILY 12/18/19 05/07/20 metoprolol tartrate 6.25 mg PO DAILY 03/09/20 05/07/20 Allergies Allergy/AdvReac Type Severity Reaction Status Date / Time No Known Allergies Allergy Verified 07/21/20 19:10 Review of Systems Review of Systems: Narrative: A 10 system review of systems was completed on the patient and is negative except for what is stated in the HPI. Nursing and ancillary documentation was reviewed. [facility] Past Medical History Medical History Abdominal pain Arthritis Borderline diabetes Coronary artery disease With history of stents. Dyslipidemia Fluid collection of pancreas GERD (gastroesophageal reflux disease) Hypertension (Unknown) Hypertriglyceridemia triglyceride 291 November 2019 Nausea & vomiting Nephrolithiasis Obstructive sleep apnea Intolerant to CPAP. Paroxysmal atrial fibrillation (Unknown) Thoracic aortic aneurysm Stable on imaging dated 12/18/2019. Patient is not interested in surgery. Surgical History Surgical History History of cataract extraction History of colonoscopy with polypectomy History of heart artery stent (~07/2006) History of lumbar fusion History of tonsillectomy History of total bilateral knee replacement Hx laparoscopic cholecystectomy 12/22/2019 Family History Family History Mother Breast cancer Father Emphysema lung Daughter Breast cancer Son Valvular heart disease his son is scheduled to have valve repair February 2020 Social History Social History Smoking status: Never smoker Second hand tobacco smoke exposure: No Alcohol intake: current Drinks per week: 1 Substance use: never Additional living arrangements comments: [place] . past away about 5 years ago. Gender identity (if verbalized by the patient): Male Spiritual care concerns: No Exam Narrative: Exam Narrative: GENERAL: Well-appearing, well-nourished, and in no acute distress. HEAD: Normocephalic, atraumatic. EYES: PERRLA and EOMI. ENT: Nares clear, no rhinorrhea or epistaxis. Mucous membranes moist. NECK: Supple. CHEST: Clear to auscultation. No respiratory distress. HEART: Regular rate and rhythm. No murmur heard. Normal peripheral pulses. ABDOMEN: Soft, epigastric tenderness to palpation, nondistended, normal active bowel sounds. EXTREMITIES: Normal range of motion. No edema. SKIN: Warm, dry, no rash. NEURO: No focal deficits. Alert and oriented x3. PSYCH: Normal mood and affect. Course Vital Signs Vital signs: Vital Signs Temperature 36.2 C L 07/21/20 18:21 Pulse Rate 69 07/21/20 18:21 Respiratory Rate 18 07/21/20 18:21 Blood Pressure 184/105 H 07/21/20 18:21 Pulse Oximetry 97 07/21/20 18:21
--- NOTE | 2020-07-21 21:21 | PC.NURSE ---
Patient informed of need for urine specimen. Patient states he does not have to void at this time. Patient refusing straight cath. Patient a/0x3. Patient states he will attempt later.
[2020-07-21] MEDS: SODIUM CHLORIDE 0.9% IV 1,000 ML 125 ML IV CONT (22:25)
--- NOTE | 2020-07-21 22:25 | ADMGEN ---
This patient, David Nicholson, was admitted to Medical Room 341-01. Patient/family oriented to hospital policies and general routines including ID bracelet, bed and alarms, visiting hours, pain management, procedures, bathroom and other care routines, personal items, smoking policy, room service/diet, and visiting hours. Information on how to activate the Rapid Response Team has been discussed. Patient/Family are encouraged to report perceived risks to care and to ask questions if they do not understand what they are told or what they should do.
[2020-07-21 22:27] LABS: Add Urine Microscopic? YES; Appearance Urine Clear (Clear); Bilirubin Urine Negative (Negative); Blood Urine 3+ (Negative); Color Urine Yellow (Yellow); Glucose Urine UA Negative (Negative); Ketones Urine Negative (Negative); Leukocyte Esterase Ur Negative LEU/UL (Negative); Mucus Urine Rare /lpf; Nitrate Urine Negative (Negative); Protein Urine 1+ mg/dL (Negative); RBC Urine >75 /hpf (0-2); Squamous Epithelial Cell Urine Rare /hpf (Few); Urobilinogen Urine Negative mg/dL (<2.0); WBC Urine 0-3 /hpf
[2020-07-21 22:29] LABS: Specific Grav Ur 1.042 (1.001-1.035)
[2020-07-21] MEDS: HYDROmorphone HCL INJ (*CRX) 1 MG/ML SYR 0.5 MG IV PUSH (23:10)
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
[2020-07-22] VITALS (7 sets, daily range): BP systolic 156–184; BP diastolic 74–102; PULSE 70–79; RESP 16–18; TEMP 36.1–36.7; O2SAT 95–100
[2020-07-22] MEDS: HYDROmorphone HCL INJ (*CRX) 1 MG/ML SYR 0.5 MG IV PUSH ×2 (03:40→08:12)
[2020-07-22] MEDS: ONDANSETRON INJ 4 MG/2 ML VIAL IV PUSH ×2 (03:41→11:52)
[2020-07-22 06:05] LABS: Basophils Percent Auto 0.2 % (0.2-1.2); Eosinophils Percent Auto 0.2 % (0-4.4); Hematocrit 45.3 % (42.0-52.0); Hemoglobin 14.8 g/dL (14.0-18.0); Immature Granulocyte Percent A 0.7 % (0-0.5); Lymphocytes Absolute Auto 0.76 K/mm3 (0.9-3.2); Lymphocytes Percent Auto 5.2 % (18.3-44.2); Mean Corpuscular HGB Conc 32.7 g/dl (32-36); Mean Corpuscular Hemoglobin 28.7 pg (26-34); Mean Platelet Volume 10.9 fl (7.4-10.4); Monocytes Absolute Auto 0.7 K/mm3 (0.1-0.6); Monocytes Percent Auto 4.8 % (2.6-8.5); Neutrophils Absolute Auto 12.9 K/mm3 (1.3-6.7); Neutrophils Percent Auto 88.9 % (45.5-73.1); Platelet Count Result 265 k/mm3 (150-375); Red Blood Count 5.15 M/mm3 (4.6-6.20); Red Cell Distribution Width 14.3 % (11.5-14.5); White Blood Count 14.6 K/mm3 (4.5-10.0)
[2020-07-22] MEDS: SODIUM CHLORIDE 0.9% IV 1,000 ML 125 ML IV CONT ×3 (06:13→23:07)
[2020-07-22] MEDS: hydrALAZINE HCL 20 MG/ML VIAL 10 MG IV PUSH (06:16)
[2020-07-22 06:31] LABS: LDL Cholesterol Direct 74 mg/dL
[2020-07-22 06:50] LABS: Anion Gap 7 mmol/L (8-16); Blood Urea Nitrogen 21 mg/dL (9-20); Calcium 8.5 mg/dL (8.4-10.2); Carbon Dioxide 25 mmol/L (22-30); Chloride 110 mmol/L (98-107); Cholesterol 126 mg/dL (0-200); Estimated CRCL calculation 69 ml/min; Estimated Glomerular Filt Rate > 60; Glucose 150 mg/dL (75-110); HDL Direct 18 mg/dL; Potassium 3.8 mmol/L (3.4-5.0); Sodium 142 mmol/L (137-145); Triglycerides 182 mg/dL (<150)
[2020-07-22 07:41] LABS: Lipase 9071 U/L (23-300)
[2020-07-22] MEDS: PANTOPRAZOLE SODIUM IV 40 MG VIAL IV PUSH (08:15)
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
--- NOTE | 2020-07-22 16:27 | WPDURCON ---
Assessment and Plan Additional Plan Hematuria - may be from the stone associated with his anticoagulation. NO evidence of a renal mass on my review of the CT scan from today. He will need a cystoscopy to complete his work up. This can be done as an outpatient once his current issue has resolved, or may be done as an inpatient depending on his length of stay. Upper tracts could also be assessed with a retrograde pyelogram, however there is no hydronephrosis present. I will order urine to be sent for cytology. Also will order a PSA as hematuria could be related to BPH or prostate cancer. Right renal stone - about 1 cm and asymptomatic. Not a candidate for ESWL due to anticoagulation. Ureteroscopy with laser lithotripsy is a possibility for therapy. Can be delayed due to need for further assessment of his pancreatitis and non-obstructive nature of the stone. Urology Consult Note HPI Date Seen: 07/22/20 Requesting Physician: Amarilis Ventura PA-C Primary Care Provider: Son Rene DO Consult Narrative Narrative: David Nicholson is a 75 year old male with a non-obstructing right renal stone and recurrent hematuria. The hematuria has been present for 3 months. It has been intermittent. He has seen clots. He does not currently have gross hematuria. It started after he started anticoagulation and anti-platelet medication. He has not had urinary retention. He is currently hospitalized for pancreatitis. Review of Systems Review of Systems: All systems reviewed & are unremarkable except as noted in HPI and below Gastrointestinal: Gastrointestinal: Reports vomiting PMFSH Past Medical History Medical History Abdominal pain Arthritis Borderline diabetes Coronary artery disease With history of stents. Dyslipidemia Fluid collection of pancreas GERD (gastroesophageal reflux disease) Hypertension (Unknown) Hypertriglyceridemia triglyceride 291 November 2019 Nausea & vomiting Nephrolithiasis Obstructive sleep apnea Intolerant to CPAP. Paroxysmal atrial fibrillation (Unknown) Thoracic aortic aneurysm Stable on imaging dated 12/18/2019. Patient is not interested in surgery. Surgical History Surgical History History of cataract extraction History of colonoscopy with polypectomy History of heart artery stent (~07/2006) History of lumbar fusion History of tonsillectomy History of total bilateral knee replacement Hx laparoscopic cholecystectomy 12/22/2019 Family History Family History Mother Breast cancer Father Emphysema lung Daughter Breast cancer Son Valvular heart disease his son is scheduled to have valve repair February 2020 Social History Social History Smoking status: Never smoker Second hand tobacco smoke exposure: No Alcohol intake: current Drinks per week: 1 Substance use: never Additional living arrangements comments: [place] . past away about 5 years ago. Gender identity (if verbalized by the patient): Male Spiritual care concerns: No Meds Home Medications and Allergies Home Medications Medication Instructions Recorded Confirmed Type ascorbic acid (vitamin C) [Vitamin 500 mg PO DAILY 12/18/19 07/21/20 History C] cyanocobalamin (vitamin B-12) 1,000 mcg PO DAILY 12/18/19 07/21/20 History [Vitamin B-12] vitamin E 400 unit PO DAILY 12/18/19 07/21/20 History apixaban 5 mg tablet 5 mg PO BID #60 tablet 01/16/20 07/21/20 Rx prochlorperazine maleate 10 mg 10 mg PO Q8H PRN #30 tablet 03/01/20 07/21/20 Rx tablet lisinopril 20 mg tablet See Rx Instructions .ROUTE 07/04/20 07/21/20 Rx .COMPLEX #180 tablet omeprazole 20 mg capsule,delayed See Rx Instructions .ROUTE 07/04/20 07/21/20 Rx release .COMPLEX #90 cap amlodipine [Norvasc] See Rx Instructions .ROUT
[2020-07-22] MEDS: FENOFIBRATE 160 MG TABLET PO (17:46)
[2020-07-22] MEDS: CYANOCOBALAMIN 1,000 MCG TABLET 1000 MCG PO (17:46)
[2020-07-22] MEDS: CLOPIDOGREL BISULFATE 75 MG TABLET BY MOUTH (17:46)
[2020-07-22] MEDS: TAMSULOSIN HCL 0.4 MG CAPSULE PO (17:46)
[2020-07-22] MEDS: APIXABAN 5 MG TABLET PO (17:46)
[2020-07-22] MEDS: ATORVASTATIN 20 MG TABLET BY MOUTH (21:38)
[2020-07-22] MEDS: lisinopriL 20 MG TABLET BY MOUTH (21:38)
[2020-07-22] MEDS: carvediloL 6.25 MG TABLET PO (21:38)
[2020-07-22] MEDS: ACETAMINOPHEN 325 MG TABLET 650 MG PO (23:07)
[2020-07-23 06:00] VITALS: BP 151/77; PULSE 69; RESP 17; TEMP 36.4; O2SAT 96
[2020-07-23 06:20] LABS: Basophils Percent Auto 0.2 % (0.2-1.2); Eosinophils Absolute Auto 0.3 K/mm3 (0-0.3); Eosinophils Percent Auto 2.3 % (0-4.4); Hemoglobin 12.7 g/dL (14.0-18.0); Immature Granulocyte Absolute 0.06 K/mm3 (0.00-0.031); Immature Granulocyte Percent A 0.5 % (0-0.5); Mean Corpuscular HGB Conc 32.6 g/dl (32-36); Mean Corpuscular Hemoglobin 28.5 pg (26-34); Mean Corpuscular Volume 87.4 fl (80-100); Mean Platelet Volume 11.1 fl (7.4-10.4); Monocytes Absolute Auto 0.7 K/mm3 (0.1-0.6); Monocytes Percent Auto 5.7 % (2.6-8.5); Neutrophils Absolute Auto 10.4 K/mm3 (1.3-6.7); Neutrophils Percent Auto 83.3 % (45.5-73.1); Platelet Count Result 224 k/mm3 (150-375); Red Blood Count 4.46 M/mm3 (4.6-6.20); Red Cell Distribution Width 14.6 % (11.5-14.5); White Blood Count 12.4 K/mm3 (4.5-10.0)
[2020-07-23 06:33] LABS: Alanine Aminotransferase 14 U/L (4-50); Albumin Level 3.1 g/dL (3.5-5.1); Alkaline Phosphatase 99 U/L (38-126); Anion Gap 3 mmol/L (8-16); Aspartate Amino Transferase 19 U/L (17-59); Bilirubin,Total 0.8 mg/dL (0.2-1.3); Blood Urea Nitrogen 17 mg/dL (9-20); Calcium 8.2 mg/dL (8.4-10.2); Carbon Dioxide 25 mmol/L (22-30); Chloride 111 mmol/L (98-107); Estimated CRCL calculation 69 ml/min; Estimated Glomerular Filt Rate > 60; Glucose 101 mg/dL (75-110); Lipase 1246 U/L (23-300); Magnesium 1.7 mg/dL (1.6-2.3); Potassium 3.3 mmol/L (3.4-5.0); Sodium 139 mmol/L (137-145)
[2020-07-23] MEDS: SODIUM CHLORIDE 0.9% IV 1,000 ML 125 ML IV CONT (06:38)
[2020-07-23 07:04] LABS: Prostate Specific Antigen 0.9 ng/mL (< OR = 4.0)
[2020-07-23] MEDS: PANTOPRAZOLE SODIUM IV 40 MG VIAL IV PUSH (09:46)
[2020-07-23] MEDS: POTASSIUM CHLORIDE 20 MEQ TABLET 40 MEQ PO (09:46)
[2020-07-23] MEDS: FENOFIBRATE 160 MG TABLET PO (09:47)
[2020-07-23] MEDS: APIXABAN 5 MG TABLET PO (09:47)
[2020-07-23] MEDS: CYANOCOBALAMIN 1,000 MCG TABLET 1000 MCG PO (09:47)
[2020-07-23] MEDS: TAMSULOSIN HCL 0.4 MG CAPSULE PO (09:47)
[2020-07-23] MEDS: lisinopriL 20 MG TABLET BY MOUTH (09:47)
[2020-07-23] MEDS: CLOPIDOGREL BISULFATE 75 MG TABLET BY MOUTH (09:47)
[2020-07-23 09:48] VITALS: PULSE 72
[2020-07-23] MEDS: carvediloL 6.25 MG TABLET PO (09:48)
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
--- NOTE | 2020-07-23 16:37 | PC.NURSE ---
Attempted to go over the discharge packet with patient. Patient stated You dont have to read that I know what to do . I reinforced the need to keep all appointments and to get lab work done in one week.
== END 2020-07-23 16:15 | disposition home or self-care (01) | DRG 440 ==
LOC: ANHED 21:36 → ANH3MED 07-22 00:34
PROVIDERS: Emergency Medicine; Urology; Admitting Provider Family Medicine; Emergency Provider Emergency Medicine; PCP Internal Medicine; Visit Provider Physician Assistant
DX: K85.90 Acute pancreatitis without necrosis or infection, unspecified (principal); K86.1 Other chronic pancreatitis; N20.0 Calculus of kidney; N40.0 Benign prostatic hyperplasia without lower urinary tract symptoms; D72.829 Elevated white blood cell count, unspecified; I10 Essential (primary) hypertension; I48.0 Paroxysmal atrial fibrillation; K21.9 Gastro-esophageal reflux disease without esophagitis; I25.10 Atherosclerotic heart disease of native coronary artery without angina pectoris; I71.2 Thoracic aortic aneurysm, without rupture; G47.33 Obstructive sleep apnea (adult) (pediatric); E78.1 Pure hyperglyceridemia; E78.5 Hyperlipidemia, unspecified; W50.0XXA Accidental hit or strike by another person, initial encounter; Z96.653 Presence of artificial knee joint, bilateral; Z28.21 Immunization not carried out because of patient refusal; Z79.01 Long term (current) use of anticoagulants; Z79.899 Other long term (current) drug therapy; Z95.0 Presence of cardiac pacemaker; Z95.5 Presence of coronary angioplasty implant and graft; Z98.1 Arthrodesis status; Z98.49 Cataract extraction status, unspecified eye; Z90.49 Acquired absence of other specified parts of digestive tract
CPT/HCPCS: 36415; 74177; 76705; 80048; 80053; 80061; 81001; 83690; 83735; 84153; 85025; 96361; 96374; 96375; 99285; A9270; C9113; J0360; J1170; J2405; J7030; Q9967

== ENCOUNTER 2020-07-30 08:44 | Outpatient (CLI) | payer MEDICARE, SELFPAY ==
[2020-07-30 09:03] LABS: Basophils Absolute Auto 0.1 K/mm3 (0.0-0.1); Basophils Percent Auto 1.4 % (0.2-1.2); Eosinophils Absolute Auto 0.6 K/mm3 (0-0.3); Eosinophils Percent Auto 8.8 % (0-4.4); Immature Granulocyte Absolute 0.03 K/mm3 (0.00-0.031); Immature Granulocyte Percent A 0.4 % (0-0.5); Lymphocytes Absolute Auto 0.94 K/mm3 (0.9-3.2); Lymphocytes Percent Auto 12.9 % (18.3-44.2); Mean Corpuscular HGB Conc 32.6 g/dl (32-36); Mean Corpuscular Hemoglobin 28.9 pg (26-34); Mean Corpuscular Volume 88.7 fl (80-100); Mean Platelet Volume 10.6 fl (7.4-10.4); Monocytes Absolute Auto 0.5 K/mm3 (0.1-0.6); Monocytes Percent Auto 7.4 % (2.6-8.5); Neutrophils Percent Auto 69.1 % (45.5-73.1); Platelet Count Result 330 k/mm3 (150-375); Red Blood Count 4.85 M/mm3 (4.6-6.20); Red Cell Distribution Width 14.1 % (11.5-14.5); White Blood Count 7.3 K/mm3 (4.5-10.0)
[2020-07-30 09:21] LABS: Alanine Aminotransferase 13 U/L (4-50); Alkaline Phosphatase 87 U/L (38-126); Anion Gap 5 mmol/L (8-16); Aspartate Amino Transferase 27 U/L (17-59); Bilirubin,Total 0.5 mg/dL (0.2-1.3); Blood Urea Nitrogen 21 mg/dL (9-20); Calcium 8.8 mg/dL (8.4-10.2); Carbon Dioxide 29 mmol/L (22-30); Chloride 106 mmol/L (98-107); Estimated Glomerular Filt Rate > 60; Glucose 111 mg/dL (75-110); Potassium 4.4 mmol/L (3.4-5.0); Sodium 140 mmol/L (137-145)
== END 2020-07-30 08:45 | disposition home or self-care (01) ==
PROVIDERS: PCP Internal Medicine; Visit Provider Physician Assistant
DX: D72.829 Elevated white blood cell count, unspecified (principal); K85.90 Acute pancreatitis without necrosis or infection, unspecified
CPT/HCPCS: 36415; 80053; 85025

== ENCOUNTER 2020-07-31 12:01 | Outpatient (CLI) | payer MEDICARE, SELFPAY ==
--- NOTE | ~2020-07-31 | XR_ITS ---
EXAMINATION: XR abdomen/kub 1V INDICATION: Bilateral kidney TECHNIQUE: Supine views of the abdomen were obtained on 2 radiographs. COMPARISON: CT, 07/21/2020 FINDINGS: A 12 mm stone projects in the right renal pelvis. Smaller stones measuring up to 4 mm are s een in the right kidney upper pole. Known small left kidney stones are obscured by bowel contents. Th ere are no dilated loops of bowel. Cholecystectomy clips are present in the right upper quadrant. The re is moderate bilateral hip osteoarthritis. IMPRESSION: 1. 12 mm stone in the right renal pelvis and right nephrolithiasis. Reviewed, dictated and finalized at location A. RETE BUCKET HOOKER
== END 2020-07-31 12:02 | disposition home or self-care (01) ==
LOC: ANHIMG 12:07
PROVIDERS: PCP Internal Medicine; Visit Provider Urology
DX: N20.0 Calculus of kidney (principal)
CPT/HCPCS: 74018

== ENCOUNTER 2020-08-24 07:52 | Outpatient (CLI) | payer MEDICARE, SELFPAY ==
[2020-08-24 08:31] LABS: INR 1.1; Prothrombin Time 15.2 Seconds (11.1-14.7)
[2020-08-24 08:34] LABS: Partial Thromboplastin Time 33.1 SECONDS (22.3-36.8)
== END 2020-08-24 07:53 | disposition home or self-care (01) ==
LOC: ANHSURGERY 07:55
PROVIDERS: PCP Internal Medicine; Visit Provider Urology
DX: N20.0 Calculus of kidney (principal); Z01.818 Encounter for other preprocedural examination
CPT/HCPCS: 36415; 85610; 85730; 87086

== ENCOUNTER → 2020-08-28 03:55 | Outpatient (CLI) | payer MEDICARE, SELFPAY ==
[2020-08-29 18:18] LABS: SARS-CoV-2 RNA PCR Negative
== END ==
PROVIDERS: PCP Internal Medicine; Visit Provider Urology
DX: Z01.812 Encounter for preprocedural laboratory examination (principal); Z20.822 Contact with and (suspected) exposure to COVID-19
CPT/HCPCS: C9803; U0003; U0005

== ENCOUNTER 2020-08-31 00:59 | Day surgery (SDC) | payer MEDICARE, SELFPAY ==
[2020-08-20 09:20] VITALS: BMI 29.7
--- NOTE | 2020-08-28 08:16 | PM.HPGS ---
History of Present Illness History of Present Illness Consent: Risks, benefits, and alternatives have been discussed and questions answered. Patient agrees to proceed with procedure. Chief complaint: Renal Stones Narrative: David Nicholson is a 75 year old male Who was initially seen during an inpatient consult by my partner with a several month history of intermittent painless gross hematuria. CT scan of the abdomen and pelvis without contrast showed bilateral renal stones, up to 1 cm on the right. Cystoscopy showed prostatic hyperplasia, the likely cause for his hematuria. He has been started on finasteride. KUB determined his renal stones to be calcified. He presents for right ESWL. Review of Systems Cardiovascular: Cardiovascular: Denies chest pain, Denies lightheadedness, Denies palpitations and Denies dyspnea Respiratory: Respiratory: Denies dyspnea Gastrointestinal: Gastrointestinal: Denies diarrhea, Denies nausea and Denies vomiting Genitourinary: Genitourinary: Denies hematuria and Denies dysuria Endocrine: Endocrine: Denies palpitations PMFSH Past Medical History Medical History Abdominal pain Arthritis Borderline diabetes Coronary artery disease With history of stents. Dyslipidemia Fluid collection of pancreas GERD (gastroesophageal reflux disease) Hypertension (Unknown) Hypertriglyceridemia triglyceride 291 November 2019 Nausea & vomiting Nephrolithiasis Obstructive sleep apnea Intolerant to CPAP. Paroxysmal atrial fibrillation (Unknown) Thoracic aortic aneurysm Stable on imaging dated 12/18/2019. Patient is not interested in surgery. Surgical History Surgical History History of cataract extraction History of colonoscopy with polypectomy History of heart artery stent (~07/2006) History of lumbar fusion History of tonsillectomy History of total bilateral knee replacement Hx laparoscopic cholecystectomy 12/22/2019 Family History Family History Mother Breast cancer Father Emphysema lung Daughter Breast cancer Son Valvular heart disease his son is scheduled to have valve repair February 2020 Social History Social History Smoking status: Never smoker Second hand tobacco smoke exposure: No Alcohol intake: current Drinks per week: 1 Substance use: never Substance use type: does not use Additional living arrangements comments: [place] . past away about 5 years ago. Gender identity (if verbalized by the patient): Male Spiritual care concerns: No Meds Home Medications and Allergies Home Medications Medication Instructions Recorded Confirmed Type ascorbic acid (vitamin C) [Vitamin 500 mg PO DAILY 12/18/19 08/20/20 History C] cyanocobalamin (vitamin B-12) 1,000 mcg PO DAILY 12/18/19 08/20/20 History [Vitamin B-12] vitamin E 400 unit PO DAILY 12/18/19 08/20/20 History apixaban 5 mg tablet 5 mg PO BID #60 tablet 01/16/20 08/20/20 Rx lisinopril 20 mg tablet See Rx Instructions .ROUTE 07/04/20 08/20/20 Rx .COMPLEX #180 tablet omeprazole 20 mg capsule,delayed See Rx Instructions .ROUTE 07/04/20 08/20/20 Rx release .COMPLEX #90 cap amlodipine [Norvasc] 2.5 mg QAM 07/21/20 08/20/20 History atorvastatin [Lipitor] See Rx Instructions .ROUTE .COMPLEX 07/21/20 08/20/20 History carvedilol 6.25 mg PO BID 07/21/20 08/20/20 History clopidogrel [Plavix] See Rx Instructions .ROUTE .COMPLEX 07/21/20 08/20/20 History fenofibrate 160 mg PO DAILY 07/21/20 08/20/20 History tamsulosin [Flomax] 0.4 mg PO DAILY 07/21/20 08/20/20 History finasteride 5 mg tablet 5 mg PO DAILY 08/02/20 08/20/20 History prochlorperazine maleate 10 mg PO Q8H PRN 08/20/20 08/20/20 History [Compazine] Allergies Allergy/AdvReac Type Severity Reaction Status Da
--- NOTE | 2020-08-30 15:46 | WPDANESEPPF ---
Anes - Initial Pre Proc Eval Procedure: Operation Date: 08/31/20 07:30 Proposed Procedures p Right Renal Extracorporeal Shock Wave Lithotripsy - Blaine Morales MD Date/Time: 08/30/20 15:46 Surgeon: Blaine Morales MD Pre Op Diagnosis: Renal Stones Patient Data Age: 75 Gender: M Height: 1.85 m Weight: 102.27 kg Allergies Allergy/AdvReac Type Severity Reaction Status Date / Time No Known Allergies Allergy Verified 08/31/20 06:24 Home Medications Medication Instructions Recorded Confirmed Type ascorbic acid (vitamin C) [Vitamin 500 mg PO DAILY 12/18/19 08/31/20 History C] cyanocobalamin (vitamin B-12) 1,000 mcg PO DAILY 12/18/19 08/31/20 History [Vitamin B-12] vitamin E 400 unit PO DAILY 12/18/19 08/31/20 History apixaban 5 mg tablet 5 mg PO BID #60 tablet 01/16/20 08/31/20 Rx lisinopril 20 mg tablet See Rx Instructions .ROUTE 07/04/20 08/31/20 Rx .COMPLEX #180 tablet omeprazole 20 mg capsule,delayed See Rx Instructions .ROUTE 07/04/20 08/31/20 Rx release .COMPLEX #90 cap amlodipine [Norvasc] 2.5 mg QAM 07/21/20 08/31/20 History atorvastatin [Lipitor] See Rx Instructions .ROUTE .COMPLEX 07/21/20 08/31/20 History carvedilol 6.25 mg PO BID 07/21/20 08/31/20 History clopidogrel [Plavix] See Rx Instructions .ROUTE .COMPLEX 07/21/20 08/31/20 History fenofibrate 160 mg PO DAILY 07/21/20 08/31/20 History tamsulosin [Flomax] 0.4 mg PO DAILY 07/21/20 08/31/20 History finasteride 5 mg tablet 5 mg PO DAILY 08/02/20 08/31/20 History prochlorperazine maleate 10 mg PO Q8H PRN 08/20/20 08/20/20 History [Compazine] Patient hx anesthesia problems: none Family hx anesthesia problems: none PMFSH Past Medical History Medical History Abdominal pain Arthritis Borderline diabetes Coronary artery disease With history of stents. Dyslipidemia Fluid collection of pancreas GERD (gastroesophageal reflux disease) Hypertension (Unknown) Hypertriglyceridemia triglyceride 291 November 2019 Nausea & vomiting Nephrolithiasis Obstructive sleep apnea Intolerant to CPAP. Paroxysmal atrial fibrillation (Unknown) Thoracic aortic aneurysm Stable on imaging dated 12/18/2019. Patient is not interested in surgery. Surgical History Surgical History History of cataract extraction History of colonoscopy with polypectomy History of heart artery stent (~07/2006) History of lumbar fusion History of tonsillectomy History of total bilateral knee replacement Hx laparoscopic cholecystectomy 12/22/2019 Family History Family History Mother Breast cancer Father Emphysema lung Daughter Breast cancer Son Valvular heart disease his son is scheduled to have valve repair February 2020 Social History Social History Smoking status: Never smoker Second hand tobacco smoke exposure: No Alcohol intake: current Drinks per week: 1 Substance use: never Substance use type: does not use Living arrangements: alone Additional living arrangements comments: [place] . past away about 5 years ago. Gender identity (if verbalized by the patient): Male Spiritual care concerns: No Anes - Eval Final PreProcedure Day of Procedure 08/30/20 15:46 Patient weight: obese Heart: regular rate and rhythm Lungs: clear to auscultation and normal air movement Airway: Mallampati scale class II Neurological: alert and oriented Last oral intake: >/= 8 hours ASA classification: IV Emergent: no Anesthetic plan: proceed Anesthesia type and monitoring: general LMA Informed Consent: The patient's anesthetic plan and its attendant risks and benefits were discussed with the patient/family/POA. Questions were solicited and answers provided to the satisfaction of the patient/family/POA.
[2020-08-31] VITALS (7 sets, daily range): BP systolic 128–150; BP diastolic 84–91; PULSE 68–71; RESP 10–20; TEMP 36.1–37.2; O2SAT 99–100
--- NOTE | ~2020-08-31 | XR_ITS ---
EXAMINATION: XR abdomen/kub 1V DATE: 08/31/2020 06:10 INDICATION: Right kidney stone. TECHNIQUE: A supine view of the abdomen on 2 radiographs was obtained. COMPARISON: CT abdomen and pelvis 07/21/2020 FINDINGS: There are no dilated loops of bowel. There is a 10 mm stone in right renal pelvis. There ar e two 3 mm stones in right kidney. There is a 3 mm stone in left kidney. Calcifications in the pancre as are consistent chronic pancreatitis. There are phleboliths in the pelvis. Surgical clips in the [facility] upper quadrant are likely from cholecystectomy. IMPRESSION: 1. Stones in the kidneys. Reviewed, dictated and finalized at location A. MOTIVE PORTER IMPRESSION: 1. Stones in the kidneys.
--- NOTE | 2020-08-31 06:29 | WPDHPUPDATE1 ---
History and Physical Update Update Date/Time: 08/31/20 06:29 History and Physical has been reviewed, including an updated exam of the patient. There are NO changes in the patient's condition. Risks, benefits, and alternatives have been discussed and questions answered. Patient agrees to proceed with procedure.
[2020-08-31] MEDS: LACTATED RINGERS 1,000 ML 30 ML IV CONT (06:40)
[2020-08-31] MEDS: ceFAZolin 2 GM/D5W 50 ML 2 GM/50 ML BAG IVPB (07:24)
--- NOTE | 2020-08-31 07:33 | P.OP_ITS ---
Procedure Note - Detailed Date of procedure: 08/31/20 Pre-op diagnosis: Renal Stones Post-op diagnosis: same Procedure performed: Right ESWL Description of procedure: The patient was brought to the operative suite where he was placed in the supine position on the Dornier lithotripsy table. The focal point of the lithotripter was placed at a 9-10mm right proximal ureteal/UPJ calculus. A total of 2500 shocks were delivered at a power setting of 4. There appeared to be good fragmentation of the stone. The patient tolerated the procedure well and was taken to the recovery room in good condition. Anesthesia: GLMA Surgeon: Blaine Morales MD Legal Instruments Examiner: None Drains: No Packing: No Pathology: none sent Complications: No immediate complications Condition: stable Disposition: PACU
== END 2020-08-31 10:15 | disposition home or self-care (01) ==
PROVIDERS: PCP Internal Medicine; Visit Provider Urology
PROC: (CPT 50590; principal; 2020-08-31 07:30)
DX: N20.1 Calculus of ureter (principal); R73.03 Prediabetes; I25.10 Atherosclerotic heart disease of native coronary artery without angina pectoris; E78.5 Hyperlipidemia, unspecified; I10 Essential (primary) hypertension; K21.9 Gastro-esophageal reflux disease without esophagitis; E78.1 Pure hyperglyceridemia; G47.33 Obstructive sleep apnea (adult) (pediatric); I48.0 Paroxysmal atrial fibrillation; I71.2 Thoracic aortic aneurysm, without rupture; Z95.5 Presence of coronary angioplasty implant and graft; Z98.1 Arthrodesis status; E66.9 Obesity, unspecified; Z68.29 Body mass index [BMI] 29.0-29.9, adult; Z79.02 Long term (current) use of antithrombotics/antiplatelets
CPT/HCPCS: 50590; 36415; 74018; 85610; 85730; 87086; C9803; J0690; J1100; J2405; J2704; J7120; U0003; U0005

== ENCOUNTER 2020-09-14 10:35 | Outpatient (CLI) | payer MEDICARE, SELFPAY ==
--- NOTE | ~2020-09-14 | XR_ITS ---
EXAMINATION: XR abdomen/kub 1V EXAM DATE: 09/14/2020 10:54 INDICATION: BI kidney stones TECHNIQUE: Frontal projection(s) of the abdomen for interpretation. Comparison is made to prior exami nation from 08/31/2020. FINDINGS: Probable identification of small bilateral nephrolithiasis. Previously seen more sizable r ight-sided calcific density no longer identified, has there been interval lithotripsy? Nonobstructive bowel gas pattern. Cholecystectomy clips. Pacemaker/AICD leads. Large lumbar bridging endplate osteo phytes. IMPRESSION: Densities which could be small bilateral nephrolithiasis. Reviewed, dictated and finalized at location B. R BEAM TRIM OPERATOR
== END 2020-09-14 10:36 | disposition home or self-care (01) ==
LOC: ANHIMG 10:37
PROVIDERS: PCP Internal Medicine; Visit Provider Urology
DX: N20.0 Calculus of kidney (principal)
CPT/HCPCS: 74018

== ENCOUNTER 2021-01-27 10:35 | Emergency (ER) | payer MEDICARE, SELFPAY ==
--- NOTE | ~2021-01-27 | CT_ITS ---
EXAMINATION: CT brain wo con DATE: 01/27/2021 11:29 INDICATION: Head injury. TECHNIQUE: Computed tomography (CT) of the head was performed without intravenous contrast. The mA wa s adjusted according to patient size. Iterative reconstruction technique was employed. The dose-lengt h product was 605.33 mGy-cm. COMPARISON: Head CT 10/02/2018 FINDINGS: There are scattered areas of low attenuation in the cerebral white matter, which is within normal limits for the patient's age. There is no intracranial hemorrhage, acute infarction, or abnorm al intracranial mass lesion. The ventricles are normal in size. There is mild mucosal thickening in t he paranasal sinuses. There are likely changes of ocular lens replacement surgeries. The mastoid air cells are normal. IMPRESSION: 1. Normal aging brain. Reviewed, dictated and finalized at location A. IMPRESSION: 1. Normal aging brain.
--- NOTE | ~2021-01-27 | CT_ITS ---
EXAMINATION: CT cervical spine wo con DATE: 01/27/2021 11:30 INDICATION: Head injury. TECHNIQUE: Computed tomography (CT) of the cervical spine was performed without intravenous contrast. Automated exposure control and iterative reconstruction technique were employed. The dose-length pro duct was 496.50 mGy-cm. COMPARISON: None FINDINGS: There is 2 mm anterolisthesis of C7 on T1. Vertebral body heights are normal. There is mild ly decreased disc height at C2-C3 at C3-C4, moderately decreased disc height at C4-C5, and severely d ecreased disc height at C6-C7. There is interbody fusion at C5-C6. There are bulky endplate osteophyt es at all levels with bridging of the osteophytes from C7 to at least T3, consistent with diffuse idi opathic skeletal hyperostosis (DISH). The following disc levels are specifically discussed: C2-C3: There is moderate right and mild left uncovertebral joint osteoarthritis. There is severe bila teral facet joint osteoarthritis. There is mild bilateral neural foraminal stenosis. There is mild ce ntral canal stenosis. C3-C4: There is severe bilateral uncovertebral joint osteoarthritis. There is severe bilateral facet joint osteoarthritis. There is moderate bilateral neural foraminal stenosis. There is mild central ca nal stenosis. C4-C5: There is severe bilateral uncovertebral joint osteoarthritis. There is severe bilateral facet joint osteoarthritis. There is moderate bilateral neural foraminal stenosis. There is mild central ca nal stenosis. C5-C6: There is severe bilateral uncovertebral joint hypertrophy. There is moderate right and severe left facet joint hypertrophy. There is mild right and moderate left neural foraminal stenosis. There is mild central canal stenosis. C6-C7: There is severe bilateral uncovertebral joint osteoarthritis. There is severe bilateral facet joint osteoarthritis. There is moderate bilateral neural foraminal stenosis. There is severe central canal stenosis. C7-T1: There is no uncovertebral joint osteoarthritis. There is severe bilateral facet joint osteoart hritis. There is mild bilateral neural foraminal stenosis. There is no central canal stenosis. IMPRESSION: 1. No fracture. 2. Severe cervical spondylosis. Reviewed, dictated and finalized at location A.
[2021-01-27 10:45] VITALS: BP 157/95; PULSE 76; RESP 18; TEMP 36.7; O2SAT 99
--- NOTE | 2021-01-27 11:33 | ED.NECK ---
HPI - Neck Pain/Injury General Chief Complaint: Neck Pain/Injury Stated Complaint: neck pain r/t fall Time Seen by Provider: 01/27/21 10:47 Source: patient Mode of arrival: ambulatory Limitations: no limitations History of Present Illness HPI Narrative: Patient is a 75-year-old male who presents with complaints of pain to neck. Patient reports trip and fall into grass yesterday afternoon. Reports hitting head. Ecchymosis noted to right forehead, abrasion to bridge of nose from glasses. Patient denies headache, reports neck pain. Reports a history of chronic neck and back pain. Patient is on blood thinners. He denies chest pain shortness of breath, he denies taking [id number] medications for pain. He reports waking this morning with increased pain and stiffness in neck. MD complaint: neck pain Related Data Home Medications Medication Instructions Recorded Confirmed ascorbic acid (vitamin C) [Vitamin 500 mg PO DAILY 12/18/19 08/31/20 C] cyanocobalamin (vitamin B-12) 1,000 mcg PO DAILY 12/18/19 08/31/20 [Vitamin B-12] vitamin E 400 unit PO DAILY 12/18/19 08/31/20 carvedilol 6.25 mg PO BID 07/21/20 08/31/20 fenofibrate 160 mg PO DAILY 07/21/20 08/31/20 finasteride 5 mg tablet 5 mg PO DAILY 08/02/20 08/31/20 prochlorperazine maleate 10 mg PO Q8H PRN 08/20/20 08/20/20 [Compazine] Allergies Allergy/AdvReac Type Severity Reaction Status Date / Time No Known Allergies Allergy Verified 01/27/21 12:50 Review of Systems Review of Systems: Narrative: CONSTITUTIONAL: Denies fever, chills, or sweats. EYES: Denies visual changes, redness, or discharge. ENT: Denies rhinorrhea, congestion, sore throat, or otalgia. Reports neck pain CARDIOVASCULAR: Denies chest pain, palpitations, or edema. RESPIRATORY: Denies cough or dyspnea. GASTROINTESTINAL: Denies abdominal pain, nausea, vomiting, or diarrhea. GENITOURINARY: Denies dysuria or hematuria. SKIN: Denies rash or itching. Reports bruising on right forehead. MUSCULOSKELETAL: Denies back pain, joint pain, or myalgia. NEUROLOGIC: Denies headache, numbness, dizziness, or weakness. PSYCHIATRIC: Denies anxiety or depression. [facility] Past Medical History Medical History Abdominal pain Arthritis Borderline diabetes Coronary artery disease With history of stents. Dyslipidemia Fluid collection of pancreas GERD (gastroesophageal reflux disease) Hypertension (Unknown) Hypertriglyceridemia triglyceride 291 November 2019 Nausea & vomiting Nephrolithiasis Obstructive sleep apnea Intolerant to CPAP. Paroxysmal atrial fibrillation (Unknown) Thoracic aortic aneurysm Stable on imaging dated 12/18/2019. Patient is not interested in surgery. Surgical History Surgical History History of cataract extraction History of colonoscopy with polypectomy History of heart artery stent (~07/2006) History of lumbar fusion History of tonsillectomy History of total bilateral knee replacement Hx laparoscopic cholecystectomy 12/22/2019 Family History Family History Mother Breast cancer Father Emphysema lung Daughter Breast cancer Son Valvular heart disease his son is scheduled to have valve repair February 2020 Social History Social History Smoking status: Never smoker Second hand tobacco smoke exposure: No Alcohol intake: current Drinks per week: 1 Alcohol use details: rarely Substance use: never Substance use type: does not use Additional living arrangements comments: [place] . past away about 5 years ago. Gender identity (if verbalized by the patient): Male Spiritual care concerns: No Comments At the time of signature, I have reviewed and agree with nursing past medical, surgical, social, and family history unle
[2021-01-27 13:21] VITALS: BP 140/91; PULSE 70; RESP 18; O2SAT 97
== END 2021-01-27 13:22 | disposition home or self-care (01) ==
PROVIDERS: Emergency Provider Nurse Practitioner; PCP Internal Medicine
DX: M47.812 Spondylosis without myelopathy or radiculopathy, cervical region (principal); S00.83XA Contusion of other part of head, initial encounter; Z79.01 Long term (current) use of anticoagulants; R73.03 Prediabetes; I25.10 Atherosclerotic heart disease of native coronary artery without angina pectoris; Z95.5 Presence of coronary angioplasty implant and graft; K21.9 Gastro-esophageal reflux disease without esophagitis; I10 Essential (primary) hypertension; E78.1 Pure hyperglyceridemia; G47.33 Obstructive sleep apnea (adult) (pediatric); I48.0 Paroxysmal atrial fibrillation; Z98.49 Cataract extraction status, unspecified eye; Z98.1 Arthrodesis status; Z96.653 Presence of artificial knee joint, bilateral; W01.0XXA Fall on same level from slipping, tripping and stumbling without subsequent striking against object, initial encounter
CPT/HCPCS: 70450; 72125; 99284

== ENCOUNTER 2022-05-26 12:34 | Outpatient (CLI) | payer MEDICARE, SELFPAY ==
--- NOTE | ~2022-05-26 | US_ITS ---
EXAMINATION: US abdomen complete DATE: 05/26/2022 13:07 INDICATION: Acute pancreatitis without necrosis TECHNIQUE: Multiple grayscale and Doppler ultrasound images of the abdomen were obtained. COMPARISON: 07/22/2020 FINDINGS: Bowel gas obscures visualization of the pancreas. The visualized portions of the pancreas a re unremarkable. The liver is normal with normal echogenicity and echotexture. No surface nodularity. Normal hepatopetal flow in the main portal vein. The gallbladder is surgically absent. The normal co mmon bile duct measures 5 mm. There was no sonographic Barron sign. The visualized portions of the ao rta and inferior vena cava are normal. The right kidney measures 11.5 x 5.0 x 6.1 cm. The left kidney measures 11.4 x 4.6 x 5.6 cm. The kidn eys demonstrate normal parenchymal echogenicity. There is no hydronephrosis. The spleen is normal in appearance and measures 11.8 cm. IMPRESSION: 1. No sonographic correlate for the patient's symptoms. Reviewed, dictated and finalized at location B. HIP LEADER
--- NOTE | ~2022-05-26 | US_ITS ---
US breast RT limited DATE: 05/26/2022 13:04 INDICATION: Right breast lump TECHNIQUE: Real-time imaging and color flow imaging of the right breast COMPARISON: 12/18/2019 CTA chest FINDINGS: There is irregular hypoechogenicity in the subareolar area, measuring up to approximately 1 .1 x 1.2 x 1.6 cm dimension, with some posterior shadowing. There is no corresponding abnormality noted in the subareolar area of the right breast on 12/18/2019 C TA chest examination. Diagnostic right mammogram is recommended for correlation with the ultrasound examination. IMPRESSION: BI-RADS Category 0: Incomplete; need additional imaging evaluation Recommendation: Diagnostic right mammogram Reviewed, dictated and finalized at Location A. Reviewed, dictated and finalized at location A. AIR DIRECTOR
== END 2022-05-26 12:35 | disposition home or self-care (01) ==
PROVIDERS: PCP Internal Medicine; Visit Provider Internal Medicine
DX: K85.90 Acute pancreatitis without necrosis or infection, unspecified (principal); N63.0 Unspecified lump in unspecified breast; R92.2 Inconclusive mammogram
CPT/HCPCS: 76642; 76700

== ENCOUNTER 2022-06-11 12:11 | Outpatient (CLI) | payer MEDICARE, SELFPAY ==
--- NOTE | ~2022-06-11 | MM_ITS ---
MM diagnostic mammo unilat RT DATE: 06/11/2022 12:42 INDICATION: Subareolar right breast tender lump TECHNIQUE: Right greater: Bilateral MLO views COMPARISON: 05/26/2022 Limited right breast ultrasound FINDINGS: There is mild right subareolar fibroglandular density consistent with gynecomastia. No susp icious mass or architectural distortion or any malignant calcification, skin thickening or retraction is noted. IMPRESSION: Right mild gynecomastia BI-RADS Category 2: Benign Reviewed, dictated and finalized at Location A. Reviewed, dictated and finalized at location A. TYPE MECHANIC
== END 2022-06-11 12:12 | disposition home or self-care (01) ==
PROVIDERS: PCP Internal Medicine; Visit Provider Internal Medicine
DX: N63.0 Unspecified lump in unspecified breast (principal); N62 Hypertrophy of breast
CPT/HCPCS: 77065

== ENCOUNTER 2023-03-10 11:04 | Outpatient (CLI) | payer MEDICARE, SELFPAY ==
--- NOTE | ~2023-03-10 | CT_ITS ---
EXAMINATION: CT brain wo con DATE: 03/10/2023 11:48 INDICATION: Head injury. TECHNIQUE: Computed tomography (CT) of the head was performed without intravenous contrast. The mA wa s adjusted according to patient size. Iterative reconstruction technique was employed. The dose-lengt h product was 605.33 mGy-cm. COMPARISON: Head CT 01/27/2021 FINDINGS: There are scattered areas of low attenuation in the cerebral white matter, which is within normal limits for the patient's age. There is no intracranial hemorrhage, acute infarction, or abnorm al intracranial mass lesion. The ventricles are normal in size. There are likely changes of ocular le ns replacement surgeries. There is mild mucosal thickening in the paranasal sinuses. The mastoid air cells are normal. IMPRESSION: 1. Normal aging brain. Reviewed, dictated and finalized at location A. IMPRESSION: 1. Normal aging brain.
== END 2023-03-10 11:05 | disposition home or self-care (01) ==
LOC: ANHIMG 11:13
PROVIDERS: PCP Family Medicine; Visit Provider Nurse Practitioner Family
DX: S09.90XA Unspecified injury of head, initial encounter (principal); X58.XXXA Exposure to other specified factors, initial encounter; Z92.29 Personal history of other drug therapy
CPT/HCPCS: 70450

== ENCOUNTER 2023-09-07 14:13 | Emergency (ER) | payer MEDICARE, SELFPAY ==
--- NOTE | ~2023-09-07 | CT_ITS ---
EXAMINATION: CT abdomen pelvis w con DATE: 09/07/2023 20:15 INDICATION: abdominal pain. TECHNIQUE: Computed tomography (CT) of the abdomen and pelvis was performed with 100 mL Omnipaque-350 intravenous contrast. Automated exposure control and iterative reconstruction technique were employe d. The dose-length product was 851.99 mGy-cm. COMPARISON: 07/21/2020. FINDINGS: Lower thorax: Coronary artery calcification. Pacemaker leads in good position. Senescent changes and bibasilar atelectasis/scar in the lungs. Liver: Diffusely low density parenchyma. Biliary/Gallbladder: Gallbladder is absent. No bile duct dilation. Pancreas: Mild generalized atrophy with truncation of the pancreatic tail. Coarse calcifications, as can be seen with acute pancreatitis. No inflammatory stranding. Stable 10 mm cystic lesion in the bod y. Spleen: Normal. Adrenals:No mass. Kidneys: Multiple nonobstructing bilateral calculi. Bilateral cortical scarring. No hydronephrosis or suspicious mass. GI tract: Moderate distal esophageal and gastric wall edema. Hyperdense collection in the lesser sac closely applied to the inner curvature of the gastric fundus and body measuring up to 4.9 cm, 76 HU. No small or large bowel dilation. Normal appendix. Diverticulosis without diverticulitis. Mesentery/Peritoneum: No ascites, mass, or free air. Retroperitoneum: No mass. Atherosclerotic abdominal aortic and/or arterial calcifications. Pelvis: Mild urinary bladder wall thickening likely due to outlet obstruction from prostatomegaly. Soft Tissues: Soft tissues and body wall unremarkable. Bones: No acute osseous finding. IMPRESSION: Moderate esophagitis/gastritis. 4.9 cm hyperdense lesser sac collection, may represent residual peripancreatic collection from prior bout of acute pancreatitis, or less likely a developing pseudocyst cyst (including gastric intramural pseudocyst). Lesser sac hematoma could appear similarly if there has been recent trauma. No gas dontrell ection to suggest superinfection or communication with the stomach. No CT evidence of acute pancreatitis. Hepatic steatosis. Reviewed, dictated and finalized at location K. ACTOR DRIVER IMPRESSION: Moderate esophagitis/gastritis. 4.9 cm hyperdense lesser sac collection, may represent residual peripancreatic collection from prior bout of acute pancreatitis, or less likely a developing p seudocyst cyst (including gastric intramural pseudocyst). Lesser sac hematoma c ould appear similarly if there has been recent trauma. No gas collection to sug gest superinfection or communication with the stomach. No CT evidence of acute pancreatitis. Hepatic steatosis.
--- NOTE | ~2023-09-07 | XR_ITS ---
EXAMINATION: XR chest 1V portable Exam Date/Time: 09/07/2023 17:30 FENDER MECHANIC APPRENTICE HISTORY: epigastric pain INTERMITTENT ABDOMINAL PAIN SINCE 07/13/23 Comparison: 10/02/2018. RESULT: Lines, tubes, and devices: Left chest pacer with intact leads. Lungs and pleura: Clear. Cardiomediastinal silhouette: Stable. Other: No acute osseous or upper abdominal finding. IMPRESSION: No acute cardiopulmonary process. Reviewed, dictated and finalized at location K. ER MECHANIC APPRENTICE
[2023-09-07 14:15] VITALS: BP 182/90; PULSE 69; RESP 18; TEMP 36.4; O2SAT 100
--- NOTE | 2023-09-07 14:18 | ECG_ITS ---
Measurements Intervals [place] Rate: 69 P: [place]: 0 QRS: -76 QRSD: 199 T: 98 QT: 484 QTc: 520 Interpretive Statements ELECTRONIC VENTRICULAR PACEMAKER NO FURTHER INTERPRETATION POSSIBLE COMPARED TO ECG 03/09/2020 20:36:38 NO SIGNIFICANT CHANGES Electronically Signed On 09-07-2023 18:36:20 SALESPERSON FURS by Jose Solitario M.D.
--- NOTE | 2023-09-07 16:02 | ED.GENADULT ---
HPI - General Adult General Chief complaint: Nausea/Vomiting/Diarrhea <Kortney Tinsley November, Last Filed: 09/07/23 16:08> Stated complaint: N/V/abd pain <Kortney Tinsley November, Last Filed: 09/07/23 16:08> Time Seen by Provider: 09/07/23 16:03 <Kortney Tinsley November, - Last Filed: 09/07/23 16:08> Focused HPI: David Nicholson is a 78 y/o male who presents with reports having nausea/vomiting since 829 today. He states he has vomited about 15 times today and having mid upper abdominal pain. He reports hx of pancreatitis but today the pain feels different. He hasn't been able to take any of his medications today. GENERAL: in no acute distress. HEAD: Normocephalic, atraumatic. CHEST: Clear to auscultation. ?No respiratory distress. HEART: Regular rate and rhythm.? NEURO: ?Alert and oriented x3. Patient screened in triage and initial orders placed.? ?Additional care and disposition to be based upon?diagnostic testing and treatment. <Kortney Tinsley November, Last Filed: 09/07/23 16:08> Related Data Home medications: Home Medications Medication Instructions Recorded Confirmed carvedilol 6.25 mg tablet 3.175 mg PO BID 07/21/20 09/07/23 finasteride 5 mg tablet 5 mg PO DAILY 08/02/20 09/07/23 <Kortney Tinsley November, - Last Filed: 09/07/23 16:08> Allergies/adverse reactions: Allergies Allergy/AdvReac Type Severity Reaction Status Date / Time No Known Allergies Allergy Verified 09/07/23 17:53 <Kortney Tinsley November, Last Filed: 09/07/23 16:08> [facility] Past Medical History Medical History: Medical History Abdominal pain Arthritis Borderline diabetes Coronary artery disease With history of stents. Dyslipidemia Fluid collection of pancreas GERD (gastroesophageal reflux disease) Hypertension (Unknown) Hypertriglyceridemia triglyceride 291 November 2019 Nausea & vomiting Nephrolithiasis Obstructive sleep apnea Intolerant to CPAP. Paroxysmal atrial fibrillation (Unknown) Thoracic aortic aneurysm Stable on imaging dated 12/18/2019. Patient is not interested in surgery. <Kortney Tinsley November, - Last Filed: 09/07/23 16:08> Surgical History Surgical History: Surgical History History of cataract extraction History of colonoscopy with polypectomy History of heart artery stent (~07/2006) History of lumbar fusion History of tonsillectomy History of total bilateral knee replacement Hx laparoscopic cholecystectomy 12/22/2019 <Kortney Tinsley November, - Last Filed: 09/07/23 16:08> Family History Family History: Family History Mother Breast cancer Father Emphysema lung Daughter Breast cancer Son Valvular heart disease his son is scheduled to have valve repair February 2020 <Kortney Tinsley November, - Last Filed: 09/07/23 16:08> Social History Social History: Social History Smoking status: Never smoker Second hand tobacco smoke exposure: No Alcohol intake: current Drinks per week: 1 Alcohol use details: rarely Substance use: never Substance use type: does not use Lack of Transportation: No Lack of Food: Never True Current Housing: I Have Housing Concerned About Future Housing: No Difficulty Paying Gas/Electric Bills: No Difficulty Paying for Meds: No Currently Unemployed: Decline to Answer Education: Decline to Answer Difficulty w/ Childcare or Family Care: No Living arrangements: alone Additional living arrangements comments: In [place] . past away about 5 years ago. Occupation/Education: retired Gender identity (if verbalized by the patient): Male Spiritual care concerns: No <Kortney Tinsley November, Last Filed: 09/07/23 16:08> Course Reevaluation(s) Reevaluation #1: I did see this patient, he was ve
[2023-09-07] MEDS: ONDANSETRON INJ 4 MG/2 ML VIAL IV PUSH ×2 (16:23→17:29)
[2023-09-07] MEDS: FAMOTIDINE 20 MG/2 ML VIAL IV PUSH (16:24)
[2023-09-07 16:30] LABS: Basophils Absolute Auto 0.1 K/mm3 (0.0-0.1); Basophils Percent Auto 0.3 % (0.2-1.2); Eosinophils Percent Auto 0.1 % (0-4.4); Hematocrit 53.8 % (42.0-52.0); Hemoglobin 17.2 g/dL (14.0-18.0); Immature Granulocyte Absolute 0.07 K/mm3 (0.00-0.031); Immature Granulocyte Percent A 0.5 % (0-0.5); Lymphocytes Absolute Auto 0.67 K/mm3 (0.9-3.2); Lymphocytes Percent Auto 4.5 % (18.3-44.2); Mean Corpuscular Hemoglobin 29.5 pg (26-34); Mean Corpuscular Volume 92.3 fl (80-100); Mean Platelet Volume 10.8 fl (7.4-10.4); Monocytes Absolute Auto 0.5 K/mm3 (0.1-0.6); Monocytes Percent Auto 3.3 % (2.6-8.5); Neutrophils Absolute Auto 13.7 K/mm3 (1.3-6.7); Neutrophils Percent Auto 91.3 % (45.5-73.1); Platelet Count Result 232 k/mm3 (150-375); Red Blood Count 5.83 M/mm3 (4.6-6.20); Red Cell Distribution Width 13.9 % (11.5-14.5)
[2023-09-07 16:41] LABS: Lactic Acid Reflex 2.2 mmol/L (0.7-2.0)
--- NOTE | 2023-09-07 17:25 | ED.NAVMDI ---
HPI - Nausea/Vomiting/Diarrhea General Chief complaint: Nausea/Vomiting/Diarrhea <BRITTNEY Fernandez Last Filed: 09/08/23 03:32> Stated complaint: N/V/abd pain <BRITTNEY Fernandez Last Filed: 09/08/23 03:32> Time Seen by Provider: 09/07/23 16:03 <BRITTNEY Fernandez Last Filed: 09/08/23 03:32> History of Present Illness HPI Narrative: 78 Year old male with history of pancreatitis, kidney stones, GERD, AFib, hypertension, s/p cholecystectomy, s/p Biotronik dual pacemaker placement reports for evaluation for epigastric abdominal pain, nausea and vomiting that started at 8:30 a.m. this morning. Patient states he had a small amount of oatmeal a banana when he felt nauseous and vomited. States he has vomited approximately 15 times since. Patient states he has had intermittent and recurrent epigastric abdominal pain with nausea and vomiting since , however has never lasted this long which prompted him to come to the ER. He reports a mild cough, denies chest pain or shortness of breath. Denies dysuria, hematuria, urinary frequency urgency, radiating abdominal pain, diarrhea, hematemesis or coffee-ground emesis. Last bowel movement was today and normal. States he was unable to take any of his medications today because he was fearful he would not keep them down. Reports having chills this morning. Last bout of pancreatitis was 2 years ago. <BRITTNEY Fernandez Last Filed: 09/08/23 03:32> Related Data Home medications: Home Medications Medication Instructions Recorded Confirmed carvedilol 6.25 mg tablet 3.175 mg PO BID 07/21/20 09/07/23 finasteride 5 mg tablet 5 mg PO DAILY 08/02/20 09/07/23 <BRITTNEY Fernandez Last Filed: 09/08/23 03:32> Allergies/Adverse reactions: Allergies Allergy/AdvReac Type Severity Reaction Status Date / Time No Known Allergies Allergy Verified 09/07/23 17:53 <BRITTNEY Fernandez Last Filed: 09/08/23 03:32> Review of Systems Review of Systems: CONSTITUTIONAL: See HPI EYES: Denies visual changes, redness, or discharge. ENT: Denies rhinorrhea, congestion, sore throat, or otalgia. CARDIOVASCULAR: Denies chest pain, palpitations, or edema. RESPIRATORY: Denies cough or dyspnea. GASTROINTESTINAL: See HPI GENITOURINARY: Denies dysuria or hematuria. SKIN: Denies rash or itching. MUSCULOSKELETAL: Denies back pain, joint pain, or myalgia. NEUROLOGIC: Denies headache, numbness, or weakness. PSYCHIATRIC: Denies anxiety or depression. <Renee Hooker PA-C - Last Filed: 09/08/23 03:32> [facility] Past Medical History Medical History: Medical History Abdominal pain Arthritis Borderline diabetes Coronary artery disease With history of stents. Dyslipidemia Fluid collection of pancreas GERD (gastroesophageal reflux disease) Hypertension (Unknown) Hypertriglyceridemia triglyceride 291 November 2019 Nausea & vomiting Nephrolithiasis Obstructive sleep apnea Intolerant to CPAP. Paroxysmal atrial fibrillation (Unknown) Thoracic aortic aneurysm Stable on imaging dated 12/18/2019. Patient is not interested in surgery. <Renee Hooker PA-C - Last Filed: 09/08/23 03:32> Surgical History Surgical History: Surgical History History of cataract extraction History of colonoscopy with polypectomy History of heart artery stent (~07/2006) History of lumbar fusion History of tonsillectomy History of total bilateral knee replacement Hx laparoscopic cholecystectomy 12/22/2019 <Renee Hooker PA-C - Last Filed: 09/08/23 03:32> Family History Family History: Family History Mother Breast cancer Father Emphysema lung Daughter Breast cancer Son Valvular heart disease his son is scheduled to have valve repair February 2020
[2023-09-07] MEDS: SODIUM CHLORIDE 0.9% IV 1,000 ML 999 ML IV CONT (17:28)
[2023-09-07] MEDS: PANTOPRAZOLE SODIUM IV 40 MG VIAL IV PUSH (17:35)
[2023-09-07] MEDS: lisinopriL 20 MG TABLET PO (17:50)
[2023-09-07 18:40] VITALS: BP 195/98; PULSE 69; RESP 20; TEMP 36.9; O2SAT 98
--- NOTE | 2023-09-07 18:41 | ECG_ITS ---
Measurements Intervals [place] Rate: 69 P: [place]: 0 QRS: -81 QRSD: 202 T: 99 QT: 526 QTc: 565 Interpretive Statements ELECTRONIC VENTRICULAR PACEMAKER COMPARED TO ECG 09/07/2023 22:40:47 NO SIGNIFICANT CHANGES Electronically Signed On 09-08-2023 15:51:26 RUBBER MILL OPERATOR by Alta Olson M.D.
--- NOTE | 2023-09-07 19:00 | ECG_ITS ---
Measurements Intervals [place] Rate: 69 P: [place]: 0 QRS: -76 QRSD: 193 T: 98 QT: 498 QTc: 536 Interpretive Statements ELECTRONIC VENTRICULAR PACEMAKER WHICH IS DEMONSTRATING APPROPRIATE SENSING AND CAPTURE ABNORMAL RHYTHM ECG COMPARED TO ECG 09/07/2023 16:19:00 NO SIGNIFICANT CHANGES Electronically Signed On 09-11-2023 12:08:05 DRUG ROOM CLERK by Rojelio Padilla M.D.
[2023-09-07 19:27] LABS: Reflex Lactic Acid Yes or No Add Lactic
[2023-09-07 19:34] LABS: INR 1.2; Prothrombin Time 15.4 Seconds (11.1-14.7)
[2023-09-07 19:35] LABS: Alanine Aminotransferase 19 U/L (6-50); Albumin Level 4.9 g/dL (3.5-5.1); Alkaline Phosphatase 93 U/L (38-126); Anion Gap 10 mmol/L (8-16); Aspartate Amino Transferase 26 U/L (17-59); Bilirubin,Total 1.5 mg/dL (0.2-1.3); Blood Urea Nitrogen 11 mg/dL (9-20); Calcium 9.4 mg/dL (8.4-10.2); Carbon Dioxide 26 mmol/L (22-30); Chloride 105 mmol/L (98-107); Estimated CRCL calculation 72 ml/min; Estimated Glomerular Filt Rate > 60; Glucose 135 mg/dL (65-110); Lipase 194 U/L (23-300); Partial Thromboplastin Time 34.9 SECONDS (22.3-36.8); Potassium 4.6 mmol/L (3.4-5.0); Sodium 141 mmol/L (137-145)
[2023-09-07 19:37] LABS: Appearance Urine Clear (Clear); Bilirubin Urine Negative (Negative); Blood Urine Negative (Negative); Color Urine Yellow (Yellow); Glucose Urine UA Negative (Negative); Ketones Urine 1+ mg/dL (Negative); Leukocyte Esterase Ur Negative LEU/UL (Negative); Nitrate Urine Negative (Negative); Protein Urine Negative (Negative); Specific Grav Ur 1.011 (1.001-1.035); Urobilinogen Urine 0.2 mg/dL (<2.0)
[2023-09-07 19:41] LABS: Add Urine Microscopic? NO
[2023-09-07 19:52] LABS: NT Pro B Type Natriuretic Pept 7690 pg/mL (19.9-100)
[2023-09-07 19:58] LABS: Troponin I 0.048 ng/mL (0.000-0.034)
[2023-09-07 19:59] LABS: Influenza A QL RT-PCR Negative (Negative); Influenza B QL RT-PCR Negative (Negative); RSV RNA, RT-PCR Negative (Negative); SARS-CoV-2 RNA PCR Negative (Negative)
[2023-09-07 20:26] VITALS: BP 173/87; PULSE 71; RESP 17; O2SAT 98
[2023-09-07] MEDS: PIPERACILLN/TAZ 3.375GM/NS50ML 3.375 GM/50 ML BAG IVPB (22:19)
[2023-09-07] MEDS: ASPIRIN 81 MG CHEWABLE TABLET 324 MG PO (22:19)
[2023-09-07 22:27] VITALS: BP 157/82; PULSE 70; RESP 18
--- NOTE | 2023-09-07 22:29 | ECG_ITS ---
Measurements Intervals [place] Rate: 69 P: [place]: 0 QRS: -81 QRSD: 186 T: 96 QT: 518 QTc: 557 Interpretive Statements ELECTRONIC VENTRICULAR PACEMAKER ABNORMAL RHYTHM ECG COMPARED TO ECG 09/07/2023 16:19:00 NO SIGNIFICANT CHANGES Electronically Signed On 09-08-2023 15:21:27 SOFTWARE PROGRAM MANAGER by Alta Olson M.D.
[2023-09-07 23:13] LABS: Lactic Acid 1.5 mmol/L (0.7-2.0)
[2023-09-07 23:30] LABS: Troponin I 0.057 ng/mL (0.000-0.034)
[2023-09-08] VITALS (31 sets, daily range): BP systolic 134–167; BP diastolic 76–98; PULSE 69–88; RESP 11–19; TEMP 37.1; O2SAT 93–99
[2023-09-08 01:49] LABS: Troponin I 0.057 ng/mL (0.000-0.034)
[2023-09-08] MEDS: PIPERACILLN/TAZ 3.375GM/NS50ML 3.375 GM/50 ML BAG IVPB ×4 (04:47→22:52)
--- NOTE | 2023-09-08 08:04 | PC.NURSE ---
0800- Called [facility] transfer for update. [facility] is beyond capacity and there is currently no estimated wait time. Patient still on wait list for bed.
[2023-09-08] MEDS: APIXABAN 5 MG TABLET PO ×2 (09:27→21:30)
[2023-09-08] MEDS: ATORVASTATIN 20 MG TABLET PO (09:27)
[2023-09-08] MEDS: CLOPIDOGREL BISULFATE 75 MG TABLET PO (09:28)
[2023-09-08] MEDS: PANTOPRAZOLE SOD SESQUIHYDRATE 20 MG TAB PO ×2 (09:28→21:30)
[2023-09-08] MEDS: lisinopriL 20 MG TABLET PO (09:30)
--- NOTE | 2023-09-08 09:32 | PC.NURSE ---
Pt requesting to speak with a Doctor. EDP made aware
--- NOTE | 2023-09-08 11:16 | PC.NURSE ---
Meal tray ordered for pt
--- NOTE | 2023-09-08 17:15 | PC.NURSE ---
1715-called [facility] transfer center-Hospital still beyond capacity-still on waitlist, nurse may call with any patient updates
--- NOTE | 2023-09-08 17:30 | PC.NURSE ---
Meal tray ordered for pt
--- NOTE | 2023-09-08 19:19 | PC.NURSE ---
Report given to Nery THOMSON, all questions answered
[2023-09-09] VITALS: BP 118/59; PULSE 69; RESP 16; O2SAT 97
--- NOTE | 2023-09-09 03:11 | PC.NURSE ---
[facility] transfer line called and wants update if patient's level of care changes. Patient still on waitlist at this time with no update on time frame for a bed.
[2023-09-09 04:00] VITALS: BP 152/92; PULSE 69; RESP 15; O2SAT 94
[2023-09-09] MEDS: PIPERACILLN/TAZ 3.375GM/NS50ML 3.375 GM/50 ML BAG IVPB ×3 (05:10→16:19)
[2023-09-09 06:00] VITALS: BP 121/68; PULSE 69; RESP 13; O2SAT 94
[2023-09-09] MEDS: PANTOPRAZOLE SOD SESQUIHYDRATE 20 MG TAB PO (09:59)
[2023-09-09] MEDS: ATORVASTATIN 20 MG TABLET PO (10:00)
[2023-09-09] MEDS: CLOPIDOGREL BISULFATE 75 MG TABLET PO (10:01)
[2023-09-09] MEDS: APIXABAN 5 MG TABLET PO (10:01)
[2023-09-09] MEDS: lisinopriL 20 MG TABLET PO (10:01)
[2023-09-09 14:33] LABS: Basophils Percent Auto 0.5 % (0.2-1.2); Eosinophils Absolute Auto 0.2 K/mm3 (0-0.3); Hematocrit 46.9 % (42.0-52.0); Hemoglobin 15.4 g/dL (14.0-18.0); Immature Granulocyte Absolute 0.03 K/mm3 (0.00-0.031); Immature Granulocyte Percent A 0.4 % (0-0.5); Lymphocytes Percent Auto 12.8 % (18.3-44.2); Mean Corpuscular HGB Conc 32.8 g/dl (32-36); Mean Corpuscular Hemoglobin 29.9 pg (26-34); Mean Corpuscular Volume 91.1 fl (80-100); Mean Platelet Volume 10.3 fl (7.4-10.4); Monocytes Absolute Auto 0.7 K/mm3 (0.1-0.6); Neutrophils Absolute Auto 5.9 K/mm3 (1.3-6.7); Neutrophils Percent Auto 75.3 % (45.5-73.1); Platelet Count Result 189 k/mm3 (150-375); Red Blood Count 5.15 M/mm3 (4.6-6.20); Red Cell Distribution Width 13.9 % (11.5-14.5); White Blood Count 7.8 K/mm3 (4.5-10.0)
[2023-09-09 14:43] LABS: Alanine Aminotransferase 14 U/L (6-50); Alkaline Phosphatase 56 U/L (38-126); Anion Gap 8 mmol/L (8-16); Aspartate Amino Transferase 28 U/L (17-59); Bilirubin,Total 1.4 mg/dL (0.2-1.3); Blood Urea Nitrogen 17 mg/dL (9-20); Calcium 8.8 mg/dL (8.4-10.2); Carbon Dioxide 25 mmol/L (22-30); Chloride 107 mmol/L (98-107); Estimated CRCL calculation 53 ml/min; Estimated Glomerular Filt Rate > 60; Glucose 128 mg/dL (65-110); Lipase 142 U/L (23-300); Potassium 3.7 mmol/L (3.4-5.0); Sodium 140 mmol/L (137-145)
[2023-09-09 14:54] LABS: Troponin I 0.023 ng/mL (0.000-0.034)
--- NOTE | 2023-09-09 15:04 | ECG_ITS ---
Measurements Intervals [place] Rate: 69 P: [place]: 0 QRS: -80 QRSD: 178 T: 101 QT: 472 QTc: 507 Interpretive Statements ELECTRONIC VENTRICULAR PACEMAKER NO FURTHER INTERPRETATION POSSIBLE COMPARED TO ECG 09/08/2023 13:52:17 NO SIGNIFICANT CHANGES Electronically Signed On 09-12-2023 14:29:13 JET ENGINE MECHANIC by Jose Solitario M.D.
[2023-09-09 17:03] VITALS: BP 138/86; PULSE 82; RESP 16; O2SAT 99
== END 2023-09-09 17:04 | disposition home or self-care (01) ==
PROVIDERS: Emergency Medicine; Nurse Practitioner Family; Emergency Provider Physician Assistant; PCP Family Medicine
DX: K29.70 Gastritis, unspecified, without bleeding (principal); R18.8 Other ascites; R79.89 Other specified abnormal findings of blood chemistry; Z20.822 Contact with and (suspected) exposure to COVID-19; I48.0 Paroxysmal atrial fibrillation; I10 Essential (primary) hypertension; I25.10 Atherosclerotic heart disease of native coronary artery without angina pectoris; K21.9 Gastro-esophageal reflux disease without esophagitis; Z95.0 Presence of cardiac pacemaker; M19.90 Unspecified osteoarthritis, unspecified site; R73.03 Prediabetes; E78.5 Hyperlipidemia, unspecified; E78.1 Pure hyperglyceridemia; G47.33 Obstructive sleep apnea (adult) (pediatric); Z98.49 Cataract extraction status, unspecified eye; Z95.5 Presence of coronary angioplasty implant and graft; Z96.612 Presence of left artificial shoulder joint; Z96.611 Presence of right artificial shoulder joint; Z98.1 Arthrodesis status; Z87.442 Personal history of urinary calculi; Z90.49 Acquired absence of other specified parts of digestive tract; Z79.01 Long term (current) use of anticoagulants; R94.31 Abnormal electrocardiogram [ECG] [EKG]
CPT/HCPCS: 36415; 71045; 74177; 80053; 81003; 83605; 83690; 83880; 84484; 85025; 85610; 85730; 87637; 93005; 96365; 96366; 96375; 96376; 99284; A9270; C9113; J2405; J2543; J7030; Q9967